=== PATIENT | female | born 1930 | race Asian ===

== ENCOUNTER 2016-08-12 17:33 | Emergency (ER) | payer OTHER ==
[~2016-08-12 17:33] MED LIST: MULT-506 PO; PRED20TA PO; SENNTAB23 PO
[2016-08-12 17:36] VITALS: TEMP 36.8
[2016-08-12] MEDS ORDERED: HYDR12.56 PO (18:37)
[2016-08-12] MEDS ORDERED: FLV1 PO (18:37)
[2016-08-12] MEDS ORDERED: ULT50 PO (18:37)
[2016-08-12 19:09] LABS: BASO % 0.5 %; BASO ABS # 0.02 K/uL (0-0.2); COMPLETE YES; EOS % 3.5 %; HEMATOCRIT 30.5 % (37-47); IG% 0.2 %; LYMPH % 9.2 %; LYMPH ABS # 0.37 K/uL (1.2-3.4); MEAN CELL VOLUME 87.4 fL (80-100); MEAN CORPUSCULAR HEMOGLOBIN 28.4 pg (25-34); MEAN CORPUSCULAR HGB CONC 32.5 g/dl (32-36); MEAN PLATELET VOLUME 8.7 fL (7.4-10.4); MONO % 6.2 %; NEUT % 80.4 %; PLATELET COUNT 218 K/uL (130-400); RED BLOOD COUNT 3.49 M/uL (4.2-5.4); WHITE BLOOD COUNT 4.04 K/uL (4.8-10.8)
[2016-08-12 19:26] LABS: PROTHROMBIN TIME (PATIENT) 10.6 SECONDS (9.0-12.0)
[2016-08-12 19:32] LABS: ALT/SGPT 19 U/L (12-78); AST/SGOT 22 U/L (15-37); BLOOD UREA NITROGEN 16 mg/dl (7-18); BUN/CREATININE RATIO 20.4 (10-20); CALCIUM 9.4 mg/dl (8.5-10.1); CARBON DIOXIDE 28 mmol/L (21-32); CHLORIDE 102 mmol/L (98-107); CREATININE 0.79 mg/dl (0.60-1.20); GLUCOSE 102 mg/dl (70-99); MAGNESIUM 2.4 mg/dl (1.8-2.4); POTASSIUM 3.7 mmol/L (3.5-5.1); SODIUM 138 mmol/L (136-145)
[2016-08-12 19:35] LABS: ALB/GLOB RATIO 0.8 (0.9-2); ALKALINE PHOSPHATASE 75 U/L (45-117)
--- NOTE | 2016-08-12 19:46 | DIAGNOSTIC IMAGING REPORT ---
CT HEAD WITHOUT CONTRAST (CT) CLINICAL HISTORY: Multiple falls. Vomiting. HEAD TRAUMA COMPARISON STUDY: No previous studies for comparison. TECHNIQUE: Axial CT of the brain is performed from the vertex to the skull base. IV contrast was not administered for this examination. CT DOSE: 836.23 mGy.cm FINDINGS: There is no CT evidence of acute cortical infarction. There is no evidence of midline shift. There is no acute hemorrhage. No calvarial fractures are visualized. There are moderate white matter hypodensities likely on a small vessel basis. 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 There is no evidence of pathologic ventricular dilatation. There is no evidence of acute sinusitis There is a 17 mm mildly hyperdense left frontal extra-axial mass likely representing a meningioma. IMPRESSION: 1. 17 mm left frontal dural based extra-axial mass, likely are representing a meningioma 2. White matter hypodensities and old lacunar infarcts likely on a small vessel ischemic basis 3. No evidence of acute hemorrhage Electronically signed by: Ayan Dennis M.D. 08/12/2016 7:44 PM Dictated Date/Time: 08/12/2016 7:41 PM
--- NOTE | 2016-08-12 19:49 | DIAGNOSTIC IMAGING REPORT ---
CT LEFT HIP-LOWER EXTREMITY WITHOUT CT DOSE: CLINICAL HISTORY: Persistent left hip pain. TECHNIQUE: Helical images were acquired in the transverse plane. Multiplane are reformatted images were acquired. COMPARISON STUDY: None. FINDINGS: Degenerative changes are present within the left sacroiliac joint. No pathologic soft tissue masses are visualized. No fractures are visualized. No destructive lesions are evident. There are no dislocations. IMPRESSION: 1. Mild degenerative changes in the left sacroiliac joint 2. No acute fractures, subluxations, or destructive lesions are visualized. Electronically signed by: Ayan Denins M.D. 08/12/2016 7:47 PM Dictated Date/Time: 08/12/2016 7:45 PM
[2016-08-12 20:31] LABS: URINE APPEARANCE CLOUDY (CLEAR); URINE BILIRUBIN NEG (NEG); URINE COLOR YELLOW; URINE NITRITE NEG (NEG); URINE SPECIFIC GRAVITY 1.007 (1.000-1.030); UROBILINOGEN NEG (NEG); ZZUR CULT IF INDIC CLEAN CATCH NO
[2016-08-12 20:48] LABS: MANUAL MICROSCOPIC REQUIRED? NO; REVIEW REQ? NO
--- NOTE | 2016-08-12 21:06 | EMERGENCY ROOM VISIT NOTE ---
ED Visit Note First contact with patient: 17:47 I have personally seen and evaluated the patient with the PA. I agree with the diagnosis and management decisions and have been personally involved in the case. Please see Tara Glez PA-C's notes for further details of the history, physical and visit.
[2016-08-12] MEDS ORDERED: HYDR50CA2 PO (21:10)
--- NOTE | 2016-08-12 21:12 | EMERGENCY ROOM VISIT NOTE ---
History First contact with patient: 17:47 Chief Complaint: OTHER COMPLAINT Stated Complaint: GENERAL ITCHINESS, UTI POSSIBLE HIP FRACTURE History of Present Illness The patient is a 85 year old female who presents to the Emergency Room with multiple complaints. The patient speaks very little Georgian and history is mostly obtained from her granddaughter. The granddaughter states that they were sent here by the patient's professor of radiology for testing. The patient had one episode of vomiting today. The granddaughter states that the patient just finished treatment for a UTI. She has taken 2 weeks of Cipro. The patient has been complaining of left hip pain for the past 3 weeks. She had a minor fall 2 days ago in the granddaughter does not believe that she hit her head or sustained any other injuries. She also reports that the patient has had generalized itching for the past several days. She has been using lotion without relief. The patient has a history of autoimmune hemolytic anemia. She has no other complaints. She denies any urinary symptoms at this time. She denies any abdominal pain, back pain, chest pain or shortness of breath. Review of Systems A complete 10-point Review of Systems was discussed with the patient, with pertinent positives and negatives listed in the History of Present Illness. All remaining Review of Systems questions can be considered negative unless otherwise specified. Past Medical/Surgical History Medical Problems: (1) Hypertension Social History Smoking Status: Never Smoker Housing Status: lives with family Occupation Status: retired Current/Historical Medications Scheduled Folic Acid (Folic Acid), 1 MG PO DAILY Hydrochlorothiazide (Hctz), 12.5 MG PO QAM Scheduled PRN Hydroxyzine Pamoate (Vistaril), 1 TAB PO Q6H PRN for Itching Tramadol HCl (Tramadol HCl), 50 MG PO BID PRN for Pain Allergies Coded Allergies: No Known Allergies (Unverified , 08/12/16) Physical Exam Vital Signs Date Time Temp Pulse Resp B/P Pulse Ox O2 Delivery O2 Flow Rate FiO2 08/12/16 21:32 81 21 132/85 94 08/12/16 20:08 84 137/92 95 Room Air 08/12/16 17:36 36.8 94 18 140/90 95 Room Air Physical Exam VITALS: Vitals are noted on the nurse's note and reviewed by myself. Vital signs stable. GENERAL: This is an 85-year-old female, in no acute distress, nondiaphoretic, well-developed well-nourished. SKIN: Multiple excoriations on bilateral arms. HEENT: Normocephalic. PERRLA. EOMI. Nares patent. Mucous membranes moist. Neck is supple without nuchal rigidity. HEART: Regular rate and rhythm without murmurs gallops or rubs. LUNGS: Clear to auscultation bilaterally without wheezes, rales or rhonchi. ABDOMEN: Positive bowel sounds x 4. Soft, nontender, without masses or organomegaly. MUSCULOSKELETAL: Mild tenderness over the left hip. NEURO: Patient was alert and oriented to person place and time. Medical Decision & Procedures ER Provider Diagnostic Interpretation: CT HEAD WITHOUT CONTRAST (CT) IMPRESSION: 1. 17 mm left frontal dural based extra-axial mass, likely are representing a meningioma 2. White matter hypodensities and old lacunar infarcts likely on a small vessel ischemic basis 3. No evidence of acute hemorrhage CT LEFT HIP-LOWER EXTREMITY WITHOUT IMPRESSION: 1. Mild degenerative changes in the left sacroiliac joint 2. No acute fractures, subluxations, or destructive lesions are visualized. Laboratory Results 08/12/16 18:55 Red Blood Count 3.49, Mean Corpuscular Volume 87.4, Mean Corpuscular Hemoglobin 28.4, Mean Corpuscular Hemoglobin Concent 32.5, Mean Platelet Volume 8.7, Neutrophils (%) (Auto) 80.4, Lymphocytes (%) (Auto) 9.2, Monocytes (%) (Auto) 6.2, Eosinophils (%) (Auto) 3.5, Basophils (%) (Auto) 0.5, Neutrophils # (Auto) 3.25, Lymphocytes # (Auto) 0.37, Monocytes # (Auto) 0.25, Eosinophils # (Auto) 0.14, Basophils # (Auto) 0.02 08/12/16 18:55 Test 08/12/16 18:55 08/12/16 19:57 White Blood Count 4.04 K/uL (4.8-10.8) Red Blood Count 3.49 M/uL (4.2-5.4) Hemoglobin 9.9 g/dL (12.0-16.0) Hematocrit 30.5 % (37-47) Mean Corpuscular Volume 87.4 fL (80-100) Mean Corpuscular Hemoglobin 28.4 pg (25-34) Mean Corpuscular Hemoglobin Concent 32.5 g/dl (32-36) Platelet Count 218 K/uL (130-400) Mean Platelet Volume 8.7 fL (7.4-10.4) Neutrophils (%) (Auto) 80.4 % Lymphocytes (%) (Auto) 9.2 % Monocytes (%) (Auto) 6.2 % Eosinophils (%) (Auto) 3.5 % Basophils (%) (Auto) 0.5 % Neutrophils # (Auto) 3.25 K/uL (1.4-6.5) Lymphocytes # (Auto) 0.37 K/uL (1.2-3.4) Monocytes # (Auto) 0.25 K/uL (0.11-0.59) Eosinophils # (Auto) 0.14 K/uL (0-0.5) Basophils # (Auto) 0.02 K/uL (0-0.2) RDW Standard Deviation 48.9 fL (36.4-46.3) RDW Coefficient of Variation 15.2 % (11.5-14.5) Immature Granulocyte % (Auto) 0.2 % Immature Granulocyte # (Auto) 0.01 K/uL (0.00-0.02) Haptoglobin <15 MG/DL (43-212) Prothrombin Time 10.6 SECONDS (9.0-12.0) Prothromb Time International Ratio 1.0 (0.9-1.1) Activated Partial Thromboplast Time 25.7 SECONDS (21.0-31.0) Partial Thromboplastin Ratio 1.0 Anion Gap 8.0 mmol/L (3-11) Estimated GFR () 78.6 Estimated GFR (Non- 67.8 BUN/Creatinine Ratio 20.4 (10-20) Calcium Level 9.4 mg/dl (8.5-10.1) Magnesium Level 2.4 mg/dl (1.8-2.4) Total Bilirubin 1.0 mg/dl (0.2-1) Aspartate Amino Transf (AST/SGOT) 22 U/L (15-37) Alanine Aminotransferase (ALT/SGPT) 19 U/L (12-78) Alkaline Phosphatase 75 U/L (45-117) Total Protein 8.2 gm/dl (6.4-8.2) Albumin 3.6 gm/dl (3.4-5.0) Globulin 4.6 gm/dl (2.5-4.0) Albumin/Globulin Ratio 0.8 (0.9-2) Urine Color YELLOW Urine Appearance CLOUDY (CLEAR) Urine pH 8.0 (4.5-7.5) Urine Specific [place] 1.007 (1.000-1.030) Urine Protein NEG (NEG) Urine Glucose (UA) NEG (NEG) Urine Ketones NEG (NEG) Urine Occult Blood NEG (NEG) Urine Nitrite NEG (NEG) Urine Bilirubin NEG (NEG) Urine Urobilinogen NEG (NEG) Urine Leukocyte Esterase NEG (NEG) Urine WBC (Auto) 0 /hpf (0-5) Urine RBC (Auto) 0-4 /hpf (0-4) Urine Hyaline Casts (Auto) 1-5 /lpf (0-5) Urine Epithelial Cells (Auto) 5-10 /lpf (0-5) Urine Bacteria (Auto) NEG (NEG) Medical Decision Differential diagnosis includes hip fracture, hip contusion, anemia, metabolic abnormality, infection, among others. The patient was evaluated as above. Labs were drawn and IV access was obtained. Imaging studies were performed and read by radiology as above. The patient was reassessed multiple times during their stay in the emergency department and remained in stable condition. The patient is an 85-year-old female who presents today with multiple complaints. Labs revealed an anemia consistent with the patient's chronic anemia. There was no leukocytosis or concerning electrolyte abnormalities. LFTs and kidney functions were within normal limits. Urinalysis was not suggestive of infection. Haptoglobin was ordered at the request of the patient' s professor of radiology and was pending at the time of evaluation. Head CT and hip CT did not show any acute abnormalities. I am unsure of the cause of the patient' s pruritis. She will be treated with Benadryl and Vistaril. She will follow up closely with her primary care provider. She will return to the ER with any new/concerning symptoms. Based on the patient's presentation, lab results, and imaging studies, I feel the patient is stable for outpatient treatment. The patient was independently evaluated by Dr. Villalta, ED attending physician, who agreed with my assessment and treatment plan. Discharge instructions were reviewed with the patient. The patient verbalized understanding of my assessment and treatment plan and was discharged home in good condition. Impression Primary Impression: Left hip pain Additional Impression: Generalized pruritus Departure Information Dispostion Home / Self-Care Condition GOOD Prescriptions Hydroxyzine Pamoate (VISTARIL) 50 Mg Cap 1 TAB PO Q6H Y for Itching for 5 Days, #20 CAP Prov: Tara Glez PA-C 08/12/16 Referrals Michael Marino, D.OGibran (PCP) Patient Instructions My [facility] Additional Instructions Vistaril: Take 1 tablet every 6 hours as needed for itching. She may also take [id number] Benadryl for itching. You should apply a cream like Aquafor or Eucerin to the skin. Follow-up with Dr. Marino and Dr. Whitehead next week. Return to the emergency department with abdominal pain, headaches, fevers, increased vomiting or any other new/concerning symptoms. Problem Qualifiers
[2016-08-12 21:32] VITALS: BP 132/85; PULSE 81; O2SAT 94
[2016-09-05] MEDS ORDERED: FAMO20TA12 PO (11:29)
[2016-09-05] MEDS ORDERED: CALCTAB7 PO (11:29)
[2016-09-05] MEDS ORDERED: MRLP17X PO (11:29)
[2016-09-05] MEDS ORDERED: FLV1 PO (11:29)
== END 2016-08-12 21:33 | disposition home or self-care (01) ==
LOC: C.EDB 17:35 → C.EDC 21:33
DX: M25.552 Pain in left hip (principal); L29.9 Pruritus, unspecified; I10 Essential (primary) hypertension

== ENCOUNTER 2016-08-21 12:14 | Inpatient (IN) | payer OTHER ==
[~2016-08-21] VITALS: Ht 152.4 cm; Wt 43.9 kg
[~2016-08-21 12:14] MED LIST changes: +FLV1 PO; +HYDR12.56 PO; -MULT-506 PO; -PRED20TA PO; -SENNTAB23 PO; +ULT50 PO
--- NOTE | 2016-08-21 12:39 | EMERGENCY ROOM VISIT NOTE ---
History Report prepared by Marina: Tank Phipps Under the Supervision of: Dr. Joo Rubin M.D. 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 The patient does not speak any Romanian, only Yi. We are using a dairy frozen manager via phone to bridge the language barrier. Due to this, this history is limited. The patient lives at home with her family. They called EMS because they could not get the patient out of bed. She has chills and a cough. She denies any fevers or pain with urination. The patient's previous visit from 08/12/2016 was reviewed. Labs were compared to the lab results today. Source of History: EMS, other (dairy frozen manager) History Limited By: other (Translation Issues) Onset: PLASTIC FINISHER Position: other (global) Timing: other (persistent) Associated Symptoms: + chills, + cough, No fevers, No urinary symptoms Review of Systems Limited due to translation issues. Past Medical & Surgical Medical Problems: (1) Hemolytic anemia (2) HTN (hypertension) (3) Osteoporosis Surgical Problems: (1) History of esophagogastroduodenoscopy (EGD) Family History Not pertinent due to the patient's age. Social History Smoking Status: Never Smoker Housing Status: lives with family Occupation Status: retired Current/Historical Medications Scheduled Hydrochlorothiazide (Hctz), 12.5 MG PO QAM Scheduled PRN Hydroxyzine Pamoate (Vistaril), 50 MG PO Q6H PRN for Itching Tramadol HCl (Tramadol HCl), 50 MG PO BID PRN for Pain Allergies Coded Allergies: No Known Allergies (Unverified , 08/12/16) Physical Exam Vital Signs Date Time Temp Pulse Resp B/P Pulse Ox O2 Delivery O2 Flow Rate FiO2 08/21/16 15:56 100 20 134/78 92 Nasal Cannula 3.0 08/21/16 14:38 107 18 137/90 97 Nasal Cannula 2.0 08/21/16 13:51 104 25 148/93 96 Nasal Cannula 2.0 08/21/16 12:45 37.6 106 20 150/96 89 Room Air 08/21/16 12:41 106 Physical Exam GENERAL: Patient awake, alert. It is difficult to discern if the patient is oriented due to the language barrier. Patient follows commands. Patient does not appear toxic. Patient is adequately hydrated and well-nourished. SKIN: No erythema, pallor, cyanosis or rash HEENT: Normal head, pupils equal, reactive to light and accommodation. Neck: Without adenopathy, no neck vein distention. Supple, nontender. LUNGS: Clear to auscultation. No wheezes, no rales, no rhonchi. Occasional nonproductive cough. HEART: No murmurs. No gallops. No rubs ABDOMEN: No masses, no rebound, no hepatomegaly or splenomegaly. EXTREMITIES: No signs of trauma. No pedal or pretibial edema. No calf or thigh tenderness. NEUROLOGIC: Cranial nerves II-XII within normal limits. No gross motor sensory function deficits. Medical Decision & Procedures ER Provider Diagnostic Interpretation: X ray results are stated below per my interpretation and the radiologist's interpretation. CHEST ONE VIEW PORTABLE HISTORY: cough COMPARISON: Chest 03/04/2014. FINDINGS: No pneumothorax. No pleural effusions. The heart is normal in size. There is a tortuous thoracic aorta. Old, healed left-sided rib fractures. Mild diffuse interstitial thickening. No new focal lung consolidations. No evidence for pulmonary edema. Right apical nodular density is likely due to the overlapping first rib. IMPRESSION: Mild diffuse interstitial thickening which appears to be chronic. No new focal lung consolidations to suggest pneumonia. Electronically signed by: Denis Arredondo M.D. 08/21/2016 12:54 PM Dictated Date/Time: 08/21/2016 12:[address]AST CT DOSE: 537.48 mGy.cm HISTORY: Change in mental status hallucinations x 1 week TECHNIQUE: Multiaxial CT images of the head were performed without the use of intravenous contrast. Comparison: 08/12/2016 Findings: Moderate mucosal thickening of the maxillary and ethmoid and inferior frontal sinuses. 1.7 cm extra-axial partially calcified meningioma left frontal lobe. This is unchanged from the prior exam. Age-related atrophy. Chronic small vessel change. No acute intracranial hemorrhage. Impression: 1. Interval development of mild mucosal thickening of the sinuses. Unchanging left frontal meningioma. Atrophy and chronic small vessel change unaltered from the prior exam. Electronically signed by: Jignesh Lopez M.D. 08/21/2016 5:11 PM Dictated Date/Time: 08/21/2016 5:08 PM Laboratory Results 08/21/16 13:13 Red Blood Count 3.32, Mean Corpuscular Volume 88.3, Mean Corpuscular Hemoglobin 28.9, Mean Corpuscular Hemoglobin Concent 32.8, Mean Platelet Volume 9.0, Neutrophils (%) (Auto) 88.8, Lymphocytes (%) (Auto) 4.1, Monocytes (%) (Auto) 6.9, Eosinophils (%) (Auto) 0.0, Basophils (%) (Auto) 0.1, Neutrophils # (Auto) 7.99, Lymphocytes # (Auto) 0.37, Monocytes # (Auto) 0.62, Eosinophils # (Auto) 0.00, Basophils # (Auto) 0.01 08/21/16 13:13 Test 08/21/16 00:00 08/21/16 13:10 08/21/16 13:13 Urine Color DK YELLOW Urine Appearance CLEAR (CLEAR) Urine pH 6.0 (4.5-7.5) Urine Specific [place] 1.019 (1.000-1.030) Urine Protein 1+ (NEG) Urine Glucose (UA) NEG (NEG) Urine Ketones 3+ (NEG) Urine Occult Blood NEG (NEG) Urine Nitrite NEG (NEG) Urine Bilirubin NEG (NEG) Urine Urobilinogen NEG (NEG) Urine Leukocyte Esterase NEG (NEG) Urine WBC (Auto) 1-5 /hpf (0-5) Urine RBC (Auto) 5-10 /hpf (0-4) Urine Hyaline Casts (Auto) 5-10 /lpf (0-5) Urine Epithelial Cells (Auto) 10-20 /lpf (0-5) Urine Bacteria (Auto) NEG (NEG) White Blood Count 9.00 K/uL (4.8-10.8) Red Blood Count 3.32 M/uL (4.2-5.4) Hemoglobin 9.6 g/dL (12.0-16.0) Hematocrit 29.3 % (37-47) Mean Corpuscular Volume 88.3 fL (80-100) Mean Corpuscular Hemoglobin 28.9 pg (25-34) Mean Corpuscular Hemoglobin Concent 32.8 g/dl (32-36) Platelet Count 258 K/uL (130-400) Mean Platelet Volume 9.0 fL (7.4-10.4) Neutrophils (%) (Auto) 88.8 % Lymphocytes (%) (Auto) 4.1 % Monocytes (%) (Auto) 6.9 % Eosinophils (%) (Auto) 0.0 % Basophils (%) (Auto) 0.1 % Neutrophils # (Auto) 7.99 K/uL (1.4-6.5) Lymphocytes # (Auto) 0.37 K/uL (1.2-3.4) Monocytes # (Auto) 0.62 K/uL (0.11-0.59) Eosinophils # (Auto) 0.00 K/uL (0-0.5) Basophils # (Auto) 0.01 K/uL (0-0.2) RDW Standard Deviation 48.2 fL (36.4-46.3) RDW Coefficient of Variation 14.8 % (11.5-14.5) Immature Granulocyte % (Auto) 0.1 % Immature Granulocyte # (Auto) 0.01 K/uL (0.00-0.02) Prothrombin Time 11.1 SECONDS (9.0-12.0) Prothromb Time International Ratio 1.0 (0.9-1.1) Activated Partial Thromboplast Time 31.0 SECONDS (21.0-31.0) Partial Thromboplastin Ratio 1.2 Anion Gap 14.0 mmol/L (3-11) Estimated GFR () 76.2 Estimated GFR (Non- 65.8 BUN/Creatinine Ratio 23.1 (10-20) Lactic Acid Level 1.9 mmol/L (0.4-2.0) Calcium Level 8.6 mg/dl (8.5-10.1) Total Bilirubin 2.4 mg/dl (0.2-1) Aspartate Amino Transf (AST/SGOT) 41 U/L (15-37) Alanine Aminotransferase (ALT/SGPT) 25 U/L (12-78) Alkaline Phosphatase 86 U/L (45-117) Troponin I 0.022 ng/ml (0-0.045) Total Protein 8.4 gm/dl (6.4-8.2) Albumin 3.3 gm/dl (3.4-5.0) Globulin 5.1 gm/dl (2.5-4.0) Albumin/Globulin Ratio 0.6 (0.9-2) Thyroid Stimulating Hormone (TSH) 0.185 uIu/ml (0.300-4.500) Laboratory results as stated above per my review. Medications Administered Medications (Trade) Dose Ordered Sig/[place] Route Start Time Stop Time Status Last Admin Dose Admin Sodium Chloride (Nss 1000ml) 1,000 ml @ 1,000 mls/hr Q1H ONCE IV 08/21/16 14:00 08/21/16 14:59 DC 08/21/16 14:35 1,000 MLS/HR Acetaminophen (Tylenol Tab) 650 mg NOW STAT PO 08/21/16 14:00 08/21/16 14:01 DC 08/21/16 14:38 650 MG ECG Indication: altered mental status Rate (beats per minute): 111 Rhythm: sinus tachycardia Findings: no acute ischemic change, no ectopy ED Course 1222: Past medical records reviewed. The patient was evaluated in room C4. A complete history and physical examination was performed. 1400: Acetaminophen 650 mg PO, Sodium Chloride 1000 ml @ 1000 mls/hr IV 1550: I spoke with the patient's granddaughter on the phone at this time. She is much more fluent in Romanian. I obtained a more detailed story about the patient. More history reveals that the patient has been complaining about generalized pain everywhere for many weeks. She is unable to eat or drink and has not been getting out of bed. She sees Dr. Marino. They are unable to take care of her at home. 1604: Upon reevaluation, the patient is resting. I discussed today's findings with her. She verbalized agreement of the treatment plan. I spoke with Dr. Burger of the [facility] to evaluate the patient for further management. Medical Decision Nurses notes reviewed. Medical history sheet reviewed. Differential diagnosis includes but is not limited to: Sepsis, pneumonia, viral infection, degenerative joint disease, and metabolic disorder. Further history was obtained from the patient's daughter and granddaughter. The patient apparently has been unable to get out of bed. She is not eating or drinking. The family feels that they are unable to take care of her at home. The patient has had hallucinations beginning 1 week ago. Multiple labs, EKG and imaging were obtained. The patient does not appear to be septic. I do not see a pneumonia. Electrolytes are felt to be grossly within normal range. The patient is anemic. She is slightly dehydrated. I discussed care with the daughter, granddaughter and hospitalist. The patient was given IV fluids here in the ED. Consults Time Called: 1600 Consulting Physician: Dr. Tao Berg Hospitalist Returned Call: 1604 She will be evaluating the patient for further management. Impression Primary Impression: Altered mental status Additional Impressions: Dehydration Hallucinations Scribe Attestation The scribe's documentation has been prepared under my direction and personally reviewed by me in its entirety. I confirm that the note above accurately reflects all work, treatment, procedures, and medical decision making performed by me. Departure Information Dispostion Being Evaluated By Hospitalist Referrals Michael Marino, D.O. (PCP) Patient Instructions [facility] Problem Qualifiers
--- NOTE | 2016-08-21 12:55 | DIAGNOSTIC IMAGING REPORT ---
CHEST ONE VIEW PORTABLE HISTORY: cough COMPARISON: Chest 03/04/2014. FINDINGS: No pneumothorax. No pleural effusions. The heart is normal in size. There is a tortuous thoracic aorta. Old, healed left-sided rib fractures. Mild diffuse interstitial thickening. No new focal lung consolidations. No evidence for pulmonary edema. Right apical nodular density is likely due to the overlapping first rib. IMPRESSION: Mild diffuse interstitial thickening which appears to be chronic. No new focal lung consolidations to suggest pneumonia. Electronically signed by: Denis Arredondo M.D. 08/21/2016 12:54 PM Dictated Date/Time: 08/21/2016 12:52 PM
[2016-08-21 13:27] LABS: HEMATOCRIT 29.3 % (37-47); MEAN CELL VOLUME 88.3 fL (80-100); MEAN CORPUSCULAR HEMOGLOBIN 28.9 pg (25-34); MEAN CORPUSCULAR HGB CONC 32.8 g/dl (32-36); PLATELET COUNT 258 K/uL (130-400); RED BLOOD COUNT 3.32 M/uL (4.2-5.4)
[2016-08-21 13:31] LABS: URINE APPEARANCE CLEAR (CLEAR); URINE BILIRUBIN NEG (NEG); URINE COLOR DK YELLOW; URINE NITRITE NEG (NEG); URINE SPECIFIC GRAVITY 1.019 (1.000-1.030); UROBILINOGEN NEG (NEG); ZZURINE CULT IF INDIC CATH NO
[2016-08-21 13:38] LABS: PARTIAL THROMBOPLASTIN RATIO 1.2; PROTHROMBIN TIME (PATIENT) 11.1 SECONDS (9.0-12.0)
[2016-08-21 13:41] LABS: MANUAL MICROSCOPIC REQUIRED? NO; REVIEW REQ? NO
[2016-08-21 13:47] LABS: ALT/SGPT 25 U/L (12-78); BLOOD UREA NITROGEN 19 mg/dl (7-18); BUN/CREATININE RATIO 23.1 (10-20); CALCIUM 8.6 mg/dl (8.5-10.1); CARBON DIOXIDE 24 mmol/L (21-32); CHLORIDE 102 mmol/L (98-107); CREATININE 0.81 mg/dl (0.60-1.20); GLUCOSE 103 mg/dl (70-99); POTASSIUM 3.5 mmol/L (3.5-5.1); SODIUM 140 mmol/L (136-145)
[2016-08-21 13:50] LABS: BASO % 0.1 %; BASO ABS # 0.01 K/uL (0-0.2); COMPLETE YES; IG% 0.1 %; LYMPH % 4.1 %; LYMPH ABS # 0.37 K/uL (1.2-3.4); MONO % 6.9 %; NEUT % 88.8 %
[2016-08-21 13:57] LABS: ALB/GLOB RATIO 0.6 (0.9-2); ALKALINE PHOSPHATASE 86 U/L (45-117); AST/SGOT 41 U/L (15-37); THYROID STIMULATING HORMONE 0.185 uIu/ml (0.300-4.500)
[2016-08-21] MEDS ORDERED: SODIUM CHLORIDE 0.9% 1000ML 1,000 ML IV ONE (14:00)
[2016-08-21] MEDS ORDERED: ACETAMINOPHEN 325 MG TAB PO STA (14:00)
[2016-08-21] MEDS ORDERED: HYDR50CA2 PO (14:49)
--- NOTE | 2016-08-21 16:44 | History and Physical ---
History & Physical Date & Time of Service: Aug 21, 2016 at 16:36 Chief Complaint: Generalized Pain Primary Care Physician: Michael Marino D.O. History of Present Illness Source: clinic records, hospital records Patient seen and examined. 85 year old female with PMhx of Hemolytic Anemia, HTN , and osteoporosis. Presents to the ED complaining of generalized pain. History is very unclear. Patient speaks Amharic only. [employer] service was called multiple times and could not understand the patient. Family also speaks little Slovak but per nursing staff family stated that patient is bed bound and always has some pain. Today she complained of increased generalized pain as well as cough and SOB. Additional history could not be obtained. In the ED patient is hypoxic on RA. It does not appear she wears oxygen at home. She was mildly anemia. She appeared slightly dehydration. TSH was low. CXR Did not show any acute processes. She received Tylenol and IVFs. She appears to be in NAD. Past Medical/Surgical History Medical Problems: (1) Hemolytic anemia Status: Chronic (2) HTN (hypertension) Status: Chronic (3) Osteoporosis Status: Chronic Surgical Problems: (1) History of esophagogastroduodenoscopy (EGD) Status: Chronic Family History Patient reports no known family medical history. Social History Smoking Status: Unknown if Ever Smoked Marital Status: Housing status: lives with family Occupational Status: retired Allergies Coded Allergies: No Known Allergies (Unverified , 08/12/16) Home Medications Scheduled Hydrochlorothiazide (Hctz), 12.5 MG PO QAM Scheduled PRN Hydroxyzine Pamoate (Vistaril), 50 MG PO Q6H PRN for Itching Tramadol HCl (Tramadol HCl), 50 MG PO BID PRN for Pain Review of Systems Unable to assess at this time d/t language barrier and technology malfunctions. Physical Exam Vital Signs Date Time Temp Pulse Resp B/P Pulse Ox O2 Delivery O2 Flow Rate FiO2 08/21/16 15:56 100 20 134/78 92 Nasal Cannula 3.0 08/21/16 14:38 107 18 137/90 97 Nasal Cannula 2.0 08/21/16 13:51 104 25 148/93 96 Nasal Cannula 2.0 08/21/16 12:45 37.6 106 20 150/96 89 Room Air 08/21/16 12:41 106 General Appearance: + pertinent finding (WD/WN 85 year old female lying in bed in NAD ) Head: normocephalic, atraumatic Eyes: PERRL, sclerae normal ENT: pharynx normal Neck: supple, no JVD, trachea midline Respiratory/Chest: chest non-tender, lungs clear, normal breath sounds, no respiratory distress, no accessory muscle use Cardiovascular: regular rate, rhythm, no edema, no gallop, no JVD, no murmur, normal peripheral pulses Abdomen/GI: normal bowel sounds, non tender, soft Extremities/Musculoskelatal: no calf tenderness, normal capillary refill, no pedal edema Neurologic/Psych: + pertinent finding (Sleeping but responses to verbal stimuli , unable to assess orientation d/t language barrier, unable to follow comands, appears to move all extremities appropriately ) Skin: normal color, warm/dry, no rash Lymphatic: no adenopathy Diagnostics Laboratory Results Results Past 24 Hours Test 08/21/16 13:10 08/21/16 13:13 Range/Units Urine Color DK YELLOW Urine Appearance CLEAR CLEAR Urine pH 6.0 4.5-7.5 Urine Specific Chunky 1.019 1.000-1.030 Urine Protein 1+ NEG Urine Glucose (UA) NEG NEG Urine Ketones 3+ NEG Urine Occult Blood NEG NEG Urine Nitrite NEG NEG Urine Bilirubin NEG NEG Urine Urobilinogen NEG NEG Urine Leukocyte Esterase NEG NEG Urine WBC (Auto) 1-5 0-5 /hpf Urine RBC (Auto) 5-10 0-4 /hpf Urine Hyaline Casts (Auto) 5-10 0-5 /lpf Urine Epithelial Cells (Auto) 10-20 0-5 /lpf Urine Bacteria (Auto) NEG NEG White Blood Count 9.00 4.8-10.8 K/uL Red Blood Count 3.32 4.2-5.4 M/uL Hemoglobin 9.6 12.0-16.0 g/dL Hematocrit 29.3 37-47 % Mean Corpuscular Volume 88.3 80-100 fL Mean Corpuscular Hemoglobin 28.9 25-34 pg Mean Corpuscular Hemoglobin Concent 32.8 32-36 g/dl Platelet Count 258 130-400 K/uL Mean Platelet Volume 9.0 7.4-10.4 fL Neutrophils (%) (Auto) 88.8 % Lymphocytes (%) (Auto) 4.1 % Monocytes (%) (Auto) 6.9 % Eosinophils (%) (Auto) 0.0 % Basophils (%) (Auto) 0.1 % Neutrophils # (Auto) 7.99 1.4-6.5 K/uL Lymphocytes # (Auto) 0.37 1.2-3.4 K/uL Monocytes # (Auto) 0.62 0.11-0.59 K/uL Eosinophils # (Auto) 0.00 0-0.5 K/uL Basophils # (Auto) 0.01 0-0.2 K/uL RDW Standard Deviation 48.2 36.4-46.3 fL RDW Coefficient of Variation 14.8 11.5-14.5 % Immature Granulocyte % (Auto) 0.1 % Immature Granulocyte # (Auto) 0.01 0.00-0.02 K/uL Prothrombin Time 11.1 9.0-12.0 SECONDS Prothromb Time International Ratio 1.0 0.9-1.1 Activated Partial Thromboplast Time 31.0 21.0-31.0 SECONDS Partial Thromboplastin Ratio 1.2 Sodium Level 140 136-145 mmol/L Potassium Level 3.5 3.5-5.1 mmol/L Chloride Level 102 98-107 mmol/L Carbon Dioxide Level 24 21-32 mmol/L Anion Gap 14.0 3-11 mmol/L Blood Urea Nitrogen 19 7-18 mg/dl Creatinine 0.81 0.60-1.20 mg/dl Estimated GFR () 76.2 Estimated GFR (Non- 65.8 BUN/Creatinine Ratio 23.1 10-20 Random Glucose 103 70-99 mg/dl Lactic Acid Level 1.9 0.4-2.0 mmol/L Calcium Level 8.6 8.5-10.1 mg/dl Total Bilirubin 2.4 0.2-1 mg/dl Aspartate Amino Transf (AST/SGOT) 41 15-37 U/L Alanine Aminotransferase (ALT/SGPT) 25 12-78 U/L Alkaline Phosphatase 86 45-117 U/L Troponin I 0.022 0-0.045 ng/ml Total Protein 8.4 6.4-8.2 gm/dl Albumin 3.3 3.4-5.0 gm/dl Globulin 5.1 2.5-4.0 gm/dl Albumin/Globulin Ratio 0.6 0.9-2 Thyroid Stimulating Hormone (TSH) 0.185 0.300-4.500 uIu/ml Microbiology Results 08/21/16 Blood Culture, Received Pending 08/21/16 Blood Culture, Received Pending Diagnostic Radiology CXR Per radiologist read: IMPRESSION: Mild diffuse interstitial thickening which appears to be chronic. No new focal lung consolidations to suggest pneumonia. EKG Sinus Tachycardia 111 BPM QTc 500 Impression Assessment and Plan Patient seen in collaboration with Dr. Burger. Please see her addendum for assessment and plan. At time of my examination the translating phone line was not working. Thank you ATTENDING NOTE : pt seen and examined, in agreement with above H&P by Kaley Naranjo PA-C 85 F from [place] -does not speak Slovak -brought in to ED by family members -as pt has not been her self for past few weeks, not been eating or drinking , confused hallucinating unable to obtain any information form Patient due to Language Barrier / called Pt's Grand daughter Ana Pineda phone # [phone] able to obtain brief history Pt lived with her Daughter in [email or web address] , at baseline -she has occasional forgetfulness able to walk with a walker for the past 2 weeks , pt has not been her self, was tired and fatigued stayed in bed , sleeping mostly refused to eat and drink no report of fever pt mentioned occasionally of feeling cold no SOB or cough noted by family no diarrhea pt had UTI recently -Urine culture on 07/29/16 -campos sensitive E .Coli completed 10 days course of Ciprofloxacin has chronic back pain , Fx of lumber spine L1-L5 started on Tramadol by Dr Oscar Marino 2 days back -pt fell form her bed -pt been complaining of pain everywhere -will not allow any one to touch her has been hallucinating in the ED pt found to be Hypoxic -requiring 2 L 02 via nasal Canula ( not on 02 at home ) P/E : limited -due to language barrier pt unable to co-operate Gen: Elderly female , no apparent distress HEENT; sclera non icteric HT: regular S1/S2 lungs: CTA abdomen : soft Ext : no rash or deformity Neuro: unable to assess , no focal deficit noted , moving all limbs A/P : SOB /PNEUMONIA : possible due to pneumonia , evident in CT chest no evidence of sepsis normal white count , no cough , no fever empiric Abx with Rocephin /Zithromax blood and sputum culture ordered SINUSITIS: evident in CT head cont abx as above possible transition to oral agent in next 24-48 hrs as clinically improves ELEVATED D DIMER ; due to above -infection CT chest negative for PE lower ext doppler negative for DVT CONFUSION /METABOLIC ENCEPHALOPATHY due to infection ,dehydration -medications ( tramadol /Vistaril )-known to cause hallucination in elderly -CT head negative for CVA cont supportive care with IV hydration, treatment for infection -caution for sun downing -high risk -dementia , language barrier updated Grand Daughter to have Family present at bedside as much as possible for support and interpretation DEHYDRATION : due to infection -recent UTI , pneumonia IV hydration monitor lytes RECENT UTI: completed 10 days course of Ciprofloxacin UA negative repeat culture ordered BACK PAIN /FALL ordered for Xray of Lumber spine pain control -avoid Narcotics PT/OT fall precaution HX OF HEMOLYTIC ANEMIA : follows with Heme onc Dr Puente Hb at baseline avoid antiplatelets /anticoagulants Peripheral blood smear for pathology review ordered in AM LOW TSH : possible sick euthyroid syndrome -due to illness normal free T4 low T 3 repeat TSH in 3-4 weeks as pt improves clinically FULL CODE DVT PROPHYLAXIS : moderate to high risk has been bed bound for weeks lower ext Doppler negative for DVT scd and teds no anticoagulation due to hx of Hemolytic anemia DISPOSITION : Family requests -placement in skilled nursing -as unable to taker care at Home request For [facility] -there is another Amharic speaking resident present currently where pt will feel comfortable PT/OT eval requested Social service consulted for discharge planning Contact : Grand Daughter Ana Pineda VTE Prophylaxis VTE Risk Assessment Done? Y/N: Yes Risk Level: Moderate Given or contraindicated: T.E.D. Stockings, SCD's
--- NOTE | 2016-08-21 17:12 | DIAGNOSTIC IMAGING REPORT ---
HEAD CT NONCONTRAST CT DOSE: 537.48 mGy.cm HISTORY: Change in mental status hallucinations x 1 week TECHNIQUE: Multiaxial CT images of the head were performed without the use of intravenous contrast. Comparison: 08/12/2016 Findings: Moderate mucosal thickening of the maxillary and ethmoid and inferior frontal sinuses. 1.7 cm extra-axial partially calcified meningioma left frontal lobe. This is unchanged from the prior exam. Age-related atrophy. Chronic small vessel change. No acute intracranial hemorrhage. Impression: 1. Interval development of mild mucosal thickening of the sinuses. Unchanging left frontal meningioma. Atrophy and chronic small vessel change unaltered from the prior exam. Electronically signed by: Jignesh Lopez M.D. 08/21/2016 5:11 PM Dictated Date/Time: 08/21/2016 5:08 PM
[2016-08-21 18:40] VITALS: BP 125/89; PULSE 91; TEMP 36.7; O2SAT 92
[2016-08-21] MEDS ORDERED: MAGNESIUM HYDROXIDE SUSP 30 ML UDC PO PRN (18:45)
[2016-08-21] MEDS ORDERED: ONDANSETRON INJ 2 MG/ML 2 ML VIAL IV PRN (18:45)
[2016-08-21] MEDS ORDERED: AMOXICILLIN/CLAVULANATE TAB 875 MG TAB PO SCH (18:45)
[2016-08-21] MEDS ORDERED: POLYETHYLENE (MIRALAX) 17 GM PACK PO PRN (19:00)
[2016-08-21] MEDS ORDERED: OPTIRAY 320 IV PRN (19:30)
[2016-08-21 20:46] LABS: INFLUENZA A PCR Neg for Influ A (NEG); INFLUENZA B PCR Neg for Influ B (NEG)
[2016-08-21] MEDS ORDERED: HEPARIN SOD 5000 UNIT/0.5 ML CARP SQ SCH (21:00)
--- NOTE | 2016-08-21 21:06 | DIAGNOSTIC IMAGING REPORT ---
CHEST CTA for PULMONARY ARTERIES CT DOSE: 277.73 mGy.cm HISTORY: Chest pain. Dyspnea. TECHNIQUE: Multiaxial CT images of the chest were performed following the intravenous administration of contrast to evaluate the pulmonary arteries. Maximal intensity projection images were also obtained. COMPARISON STUDY: 03/06/2014 FINDINGS: There is a normal caliber thoracic aorta with no evidence for dissection. There is no evidence for pulmonary embolus. No pleural effusions. No pneumothorax. The liver and spleen are unremarkable. No mediastinal or hilar lymphadenopathy. The central airways are patent. The lungs demonstrate somewhat progressive bibasilar infiltrative change compared to the prior exam. Degenerative change thoracic spine similar compared to the prior study. IMPRESSION: 1. No evidence for pulmonary embolus. 2. Small bibasilar parenchymal infiltrates superimposed upon chronic interstitial change. Electronically signed by: Jignesh Lopez M.D. 08/21/2016 9:04 PM Dictated Date/Time: 08/21/2016 9:00 PM
--- NOTE | 2016-08-21 21:11 | DIAGNOSTIC IMAGING REPORT ---
BILATERAL LOWER EXTREMITY VENOUS DOPPLER HISTORY: Dyspnea pain. Edema. COMPARISON STUDY: None. FINDINGS: There is normal compressibility, flow, and augmentation within the bilateral lower extremity deep venous systems. IMPRESSION: No DVT within the right or left lower extremity. Electronically signed by: Jignesh Lopez M.D. 08/21/2016 9:09 PM Dictated Date/Time: 08/21/2016 9:09 PM
[2016-08-21] MEDS ORDERED: HYDROXYZINE PAMOATE 50 MG PO PRN (21:30)
[2016-08-21] MEDS ORDERED: TRAMADOL HCL 50 MG TAB PO PRN (21:30)
[2016-08-21] MEDS: CEFTRIAXONE SOD INJ 1 GM in DEXTROSE 5% ADD-VANTAGE 50ML 50 ML IV SCH (22:26)
[2016-08-21] MEDS: SODIUM CHLORIDE 0.9% 1000ML 1,000 ML IV SCH (22:27)
[2016-08-21 23:43] VITALS: BP 126/85; PULSE 101; TEMP 36.7; O2SAT 97
[2016-08-22] VITALS (7 sets, daily range): BP systolic 97–126; BP diastolic 61–85; PULSE 78–103; TEMP 36.5–38.1; O2SAT 91–97; Ht 152.4 cm; Wt 43.9 kg
[2016-08-22 06:04] LABS: HEMATOCRIT 22.9 % (37-47); MEAN CELL VOLUME 87.7 fL (80-100); MEAN CORPUSCULAR HGB CONC 31.9 g/dl (32-36); MEAN PLATELET VOLUME 8.7 fL (7.4-10.4); PLATELET COUNT 211 K/uL (130-400); RED BLOOD COUNT 2.61 M/uL (4.2-5.4); WHITE BLOOD COUNT 7.67 K/uL (4.8-10.8)
[2016-08-22 06:31] LABS: CALCIUM 8.3 mg/dl (8.5-10.1); CREATININE 0.64 mg/dl (0.60-1.20); MAGNESIUM 2.2 mg/dl (1.8-2.4); POTASSIUM 3.1 mmol/L (3.5-5.1)
[2016-08-22] MEDS ORDERED: PNEUMOCOCCAL ADMINISTRATION CHARGE ONE (08:00)
[2016-08-22] MEDS ORDERED: INFLUENZA ADMINISTRATION CHARGE ONE (08:00)
[2016-08-22] MEDS ORDERED: INFLUENZA VIRUS QUAD VACCINE 0.5 ML SYR IM. ONE (08:00)
[2016-08-22] MEDS ORDERED: PNEUMOCOCCAL POLYSACCHARIDES 25 MCG/0.5 ML VIAL/SYR IM. ONE (08:00)
[2016-08-22] MEDS: SODIUM CHLORIDE 0.9% 1000ML 1,000 ML IV SCH (09:17)
[2016-08-22] MEDS: AZITHROMYCIN 250 MG TAB PO SCH (09:18)
--- NOTE | 2016-08-22 10:06 | DIAGNOSTIC IMAGING REPORT ---
LUMBAR SPINE 2 OR 3 VIEWS CLINICAL HISTORY: back pain COMPARISON STUDY: CT abdomen and pelvis dated 03/06/2014 FINDINGS: Old compression deformity L1. Moderate degenerative intervertebral this changes throughout the remainder the lumbar region. Mild scoliosis. No new or interval process. IMPRESSION: Old compression deformity L1. Moderate degenerative disc changes throughout the entire lumbar region Electronically signed by: Jignesh Lopez M.D. 08/22/2016 10:05 AM Dictated Date/Time: 08/22/2016 10:03 AM
[2016-08-22] MEDS: ALUMINUM/MAGNESIUM/SIMETH (MAALOX MAX) 30 ML UDC PO PRN (13:05)
[2016-08-22] MEDS: ACETAMINOPHEN 325 MG TAB PO PRN (16:38)
--- NOTE | 2016-08-22 20:43 | Progress Note ---
Medicine Progress Note Date & Time of Visit: Aug 22, 2016 at 20:22. Subjective Patient seen and examined. Patient is Japanese speaking only and no family present. Objective Last 8 Hrs Date Time Temp Pulse Resp B/P Pulse Ox O2 Delivery O2 Flow Rate FiO2 08/22/16 19:51 36.5 78 20 101/62 97 Nasal Cannula 3.0 08/22/16 17:39 37.8 08/22/16 15:49 Nasal Cannula 3.0 08/22/16 15:20 38.1 97 18 99/66 95 Nasal Cannula 3.0 Physical Exam: General-sleeping but arousable Eyes-unable to fully examine; no scleral icterus Neck-no stridor; trachea midline Lungs-rhonchi throughout Heart-RRR Abdomen-soft; NTND; nBS Extremities-no c/c/e; no deformity Neuro-unable to examine Laboratory Results: Last 24 Hours Test 08/22/16 05:40 08/22/16 09:15 White Blood Count 7.67 K/uL Red Blood Count 2.61 M/uL Hemoglobin 7.3 g/dL Hematocrit 22.9 % Mean Corpuscular Volume 87.7 fL Mean Corpuscular Hemoglobin 28.0 pg Mean Corpuscular Hemoglobin Concent 31.9 g/dl RDW Standard Deviation 47.6 fL RDW Coefficient of Variation 14.8 % Platelet Count 211 K/uL Mean Platelet Volume 8.7 fL Nucleated RBC Absolute Count (auto) 0.00 K/uL Nucleated Red Blood Cells % 0.0 % Peripheral Blood Smear Path Consult Sodium Level 144 mmol/L Potassium Level 3.1 mmol/L Chloride Level 108 mmol/L Carbon Dioxide Level 24 mmol/L Anion Gap 12.0 mmol/L Blood Urea Nitrogen 18 mg/dl Creatinine 0.64 mg/dl Est Creatinine Clear Calc Drug Dose 45.3 ml/min Estimated GFR () 93.6 Estimated GFR (Non- 80.8 BUN/Creatinine Ratio 28.0 Random Glucose 80 mg/dl Calcium Level 8.3 mg/dl Magnesium Level 2.2 mg/dl Total Bilirubin 1.6 mg/dl Direct Bilirubin 0.6 mg/dl Aspartate Amino Transf (AST/SGOT) 27 U/L Alanine Aminotransferase (ALT/SGPT) 17 U/L Alkaline Phosphatase 64 U/L Total Protein 6.6 gm/dl Albumin 2.5 gm/dl Absolute Reticulocyte Count 0.06 10^6/uL Percent Reticulocyte Count 2.2 % Lactate Dehydrogenase 291 U/L Date/Time Source Procedure Growth Status 08/21/16 23:45 Urine , Clean Catch Urine Culture Pending Received Assessment & Plan POSSIBLE PNEUMONIA - CT chest with bibasilar parenchymal infiltrates - continue Rocephin (start 08/21/16) / Zithromax (start 08/22/16) - fever 08/22/16, but within 24 hours of starting antibiotics - blood and sputum culture pending - continue supplemental oxygen - nebulizers ELEVATED D DIMER - likely due to infection - CT chest negative for PE - lower ext doppler negative for DVT METABOLIC ENCEPHALOPATHY - likely due to infection, dehydration, medications (on tramadol, hydroxyzine as outpatient) - CT head negative for acute process BACK PAIN /FALL - xray of Lumber spine with old L1 compression deformity and moderate degenerative changes - lidocaine patch - Tylenol PRN - PT/OT evaluations recommend home vs SNF (patient's family unable to care for patient) HEMOLYTIC ANEMIA - follows with Heme onc Dr Whitehead as outpatient - had planned to start outpatient weekly Rituxan - Hgb downtrended, possibly somewhat dilutional with IVF's - haptoglobin, direct Ignacia pending - absolute retic low-normal - LDH mildly elevated LOW TSH - possible sick euthyroid syndrome -due to illness - normal free T4 and low T 3 - repeat TSH in 3-4 weeks as pt improves clinically DVT PROPHYLAXIS - scd and teds - no pharmacologic anticoagulation due to hemolytic anemia DISPOSITION - family requests placement in correction as unable to take care at home - social service consulted for discharge planning FULL CODE Contact : Grand Daughter Ana Pineda Discharge planning: long-term facility Procedures: CT head 1. Interval development of mild mucosal thickening of the sinuses. Unchanging left frontal meningioma. Atrophy and chronic small vessel change unaltered from the prior exam. CT chest 1. No evidence for pulmonary embolus. 2. Small bibasilar parenchymal infiltrates superimposed upon chronic interstitial change. LE venous doppler No DVT within the right or left lower extremity. Lumbar spine xray Old compression deformity L1. Moderate degenerative disc changes throughout the entire lumbar region Current Inpatient Medications: Current Inpatient Medications Medications (Trade) Dose Ordered Sig/Mingo Route Start Time Stop Time Status Last Admin Dose Admin Acetaminophen (Tylenol Tab) 650 mg Q4H PRN PO 08/21/16 18:45 09/20/16 18:44 08/22/16 16:38 650 MG Al Hydrox/Mg Hydrox/Simethicone (Maalox Max Susp) 15 ml Q4H PRN PO 08/21/16 18:45 09/20/16 18:44 08/22/16 13:05 15 ML Magnesium Hydroxide (Milk Of Magnesia Susp) 30 ml Q6H PRN PO 08/21/16 18:45 09/20/16 18:44 Polyethylene (Miralax Powder Packet) 17 gm DAILY PRN PO 08/21/16 19:00 09/20/16 18:59 Ondansetron HCl 4 mg 4 mg Q6H PRN IV 08/21/16 18:45 09/20/16 18:44 Sodium Chloride (Nss 1000ml) 1,000 ml @ 80 mls/hr [id number] IV 08/21/16 18:45 09/20/16 18:44 08/22/16 09:17 80 MLS/HR Ioversol 100 ml 100 ml UD PRN IV 08/21/16 19:30 08/25/16 19:29 Ceftriaxone Sodium/Dextrose (Rocephin Inj/ Dextrose Add-Briscoe 50ML) 50 ml @ 100 mls/hr Q24H IV 08/21/16 22:00 08/28/16 21:59 08/21/16 22:26 100 MLS/HR Azithromycin (Zithromax Tab) 500 mg QAM PO 08/22/16 09:00 08/29/16 08:59 08/22/16 09:18 500 MG Miscellaneous (Xopenex/ Atrovent Neb) 1 ea Q6R INH 08/22/16 21:00 09/21/16 20:59 UNV
[2016-08-22] MEDS: LEVALBUTEROL 1.25MG/0.5ML NEB INH SCH (21:00)
[2016-08-22] MEDS: IPRATROPIUM BROMIDE NEB SOLN 0.02% 2.5 ML VIAL INH SCH (21:00)
[2016-08-22] MEDS ORDERED: LEVALBUTEROL/IPRATROPIUM NEB INH SCH (21:00)
[2016-08-22] MEDS: LIDODERM (LIDOCAINE) PATCH 5% TD SCH (22:31)
[2016-08-22] MEDS: CEFTRIAXONE SOD INJ 1 GM in DEXTROSE 5% ADD-VANTAGE 50ML 50 ML IV SCH (22:34)
[2016-08-23 00:13] VITALS: BP 116/71; PULSE 76; TEMP 36.9; O2SAT 98
[2016-08-23 01:52] VITALS: PULSE 74; O2SAT 98
[2016-08-23] MEDS: IPRATROPIUM BROMIDE NEB SOLN 0.02% 2.5 ML VIAL INH SCH ×4 (01:52→20:34)
[2016-08-23] MEDS: LEVALBUTEROL 1.25MG/0.5ML NEB INH SCH ×4 (01:52→20:34)
[2016-08-23 07:15] LABS: MEAN CELL VOLUME 86.3 fL (80-100); MEAN CORPUSCULAR HEMOGLOBIN 28.2 pg (25-34); MEAN CORPUSCULAR HGB CONC 32.7 g/dl (32-36); MEAN PLATELET VOLUME 8.8 fL (7.4-10.4); PLATELET COUNT 196 K/uL (130-400); RED BLOOD COUNT 2.55 M/uL (4.2-5.4)
[2016-08-23 07:33] VITALS: PULSE 77; O2SAT 98
[2016-08-23 07:46] VITALS: BP 121/75; PULSE 84; TEMP 36.5; O2SAT 97
[2016-08-23 08:15] LABS: BUN/CREATININE RATIO 30.4 (10-20); CALCIUM 8.2 mg/dl (8.5-10.1); CREATININE 0.49 mg/dl (0.60-1.20); MAGNESIUM 2.3 mg/dl (1.8-2.4)
[2016-08-23] MEDS: LIDODERM (LIDOCAINE) PATCH 5% TD SCH (08:29)
[2016-08-23] MEDS: AZITHROMYCIN 250 MG TAB PO SCH (08:30)
[2016-08-23] MEDS: ACETAMINOPHEN 325 MG TAB PO PRN (09:55)
[2016-08-23] MEDS: ALUMINUM/MAGNESIUM/SIMETH (MAALOX MAX) 30 ML UDC PO PRN (11:21)
[2016-08-23] MEDS ORDERED: ALBUTEROL 0.083% NEBU SOLN 3 ML VIAL INH PRN (11:30)
--- NOTE | 2016-08-23 11:59 | Progress Note ---
Internal Med Progress Note Date of Service: Aug 23, 2016. Provider Documentation: SUBJECTIVE: Patient is seen and examined at bedside. Patient speaks Lithuanian, grand daughter helped with conversation. Patient has been intermittently confused since about 3 weeks. Currently denies any chest pain, SOB but reports wheezing, dry cough and mild abdominal pain associated with coughing. OBJECTIVE: Vital Signs-as noted below Physical Exam: General Appearance:Thin, fragile, chronically ill appearing. no apparent distress Head: normocephalic, Atraumatic Eyes: normal inspection, EOMI, PERRL Neck: supple, no JVD, Trachea midline Respiratory/Chest: Creps b/l at bases, decreased breath sounds at bases. No accessory muscle use Cardiovascular: S1, S2, No murmur Abdomen/GI:Soft, Non tender, Bowel sounds present, No guarding/rigidity Extremities/Musculoskelatal:normal inspection,no edema Neurologic/Psych:grossly no focal neurological deficits Skin: normal color, warm Lab data as noted below. ASSESSMENT & PLAN: POSSIBLE PNEUMONIA CT chest with bibasilar parenchymal infiltrates continue Rocephin (start 08/21/16) / Zithromax (start 08/22/16) Follow up blood and sputum cultures: No growth to date continue supplemental oxygen, nebulizers HYPOKALEMIA: Will replace and monitor Magnesium levels wnl ELEVATED D DIMER likely due to infection CT chest negative for PE LE doppler negative for DVT METABOLIC ENCEPHALOPATHY likely secondary to infection, dehydration, medications (on tramadol, hydroxyzine as outpatient) CT head negative for acute process continue to monitor BACK PAIN /FALL xray of Lumber spine with old L1 compression deformity and moderate degenerative changes lidocaine patch and Tylenol PRN for pain PT/OT: May need SNF HEMOLYTIC ANEMIA Follows with Dr Whitehead as outpatient Current Hb:7.2 Had planned for weekly Rituxan as outpatient Will consult Heme Onchology Haptoglobin, direct Ignacia: pending absolute retic low-normal LDH mildly elevated LOW TSH Likely sick euthyroid syndrome normal free T4 and low T 3 Needs repeat TSH in 3-4 weeks as outpatient DVT PROPHYLAXIS SCDs Pharmacologic anticoagulation contraindicated DISPOSITION family requests: placement in retirement as unable to take care at home - social service consulted CODE STATUS: Full code Contact : Grand Daughter Ana Pineda Discharge planning: SNF Procedures: CT head 1. Interval development of mild mucosal thickening of the sinuses. Unchanging left frontal meningioma. Atrophy and chronic small vessel change unaltered from the prior exam. CT chest 1. No evidence for pulmonary embolus. 2. Small bibasilar parenchymal infiltrates superimposed upon chronic interstitial change. LE venous doppler No DVT within the right or left lower extremity. Lumbar spine xray Old compression deformity L1. Moderate degenerative disc changes throughout the entire lumbar region Vital Signs: Date Time Temp Pulse Resp B/P Pulse Ox O2 Delivery O2 Flow Rate FiO2 08/23/16 07:46 36.5 84 14 121/75 97 Nasal Cannula 2.0 08/23/16 07:33 77 16 98 Nasal Cannula 3.0 08/23/16 01:52 74 16 98 Nasal Cannula 3.0 08/23/16 00:13 36.9 76 18 116/71 98 3.0 08/22/16 23:45 Nasal Cannula 3.0 08/22/16 20:00 Nasal Cannula 3.0 08/22/16 19:51 36.5 78 20 101/62 97 Nasal Cannula 3.0 08/22/16 17:39 37.8 08/22/16 15:49 Nasal Cannula 3.0 08/22/16 15:20 38.1 97 18 99/66 95 Nasal Cannula 3.0 Lab Results: Results Past 24 Hours Test 08/23/16 07:00 Range/Units White Blood Count 6.40 4.8-10.8 K/uL Red Blood Count 2.55 4.2-5.4 M/uL Hemoglobin 7.2 12.0-16.0 g/dL Hematocrit 22.0 37-47 % Mean Corpuscular Volume 86.3 80-100 fL Mean Corpuscular Hemoglobin 28.2 25-34 pg Mean Corpuscular Hemoglobin Concent 32.7 32-36 g/dl RDW Standard Deviation 47.5 36.4-46.3 fL RDW Coefficient of Variation 14.8 11.5-14.5 % Platelet Count 196 130-400 K/uL Mean Platelet Volume 8.8 7.4-10.4 fL Sodium Level 143 136-145 mmol/L Potassium Level 3.0 3.5-5.1 mmol/L Chloride Level 109 98-107 mmol/L Carbon Dioxide Level 24 21-32 mmol/L Anion Gap 10.0 3-11 mmol/L Blood Urea Nitrogen 15 7-18 mg/dl Creatinine 0.49 0.60-1.20 mg/dl Est Creatinine Clear Calc Drug Dose 59.2 ml/min Estimated GFR () 102.2 Estimated GFR (Non- 88.2 BUN/Creatinine Ratio 30.4 10-20 Random Glucose 83 70-99 mg/dl Calcium Level 8.2 8.5-10.1 mg/dl Magnesium Level 2.3 1.8-2.4 mg/dl Total Bilirubin 0.9 0.2-1 mg/dl Direct Bilirubin 0.3 0-0.2 mg/dl Aspartate Amino Transf (AST/SGOT) 34 15-37 U/L Alanine Aminotransferase (ALT/SGPT) 19 12-78 U/L Alkaline Phosphatase 65 45-117 U/L Total Protein 6.5 6.4-8.2 gm/dl Albumin 2.4 3.4-5.0 gm/dl
[2016-08-23] MEDS ORDERED: POTASSIUM CHLORIDE 20 MEQ TABCR PO ONE ×2 (12:00→18:00)
[2016-08-23 14:52] VITALS: BP 102/64; PULSE 77; TEMP 36.3; O2SAT 100
[2016-08-23] MEDS: FAMOTIDINE IV INJ 20 MG in DEXTROSE 5% 100ML 100 ML IV SCH (20:25)
[2016-08-23] MEDS: CALCIUM 600MG + VIT D 400 IU TAB PO SCH (20:26)
[2016-08-23 20:38] VITALS: PULSE 79; O2SAT 94
[2016-08-23] MEDS: CEFTRIAXONE SOD INJ 1 GM in DEXTROSE 5% ADD-VANTAGE 50ML 50 ML IV SCH (22:41)
[2016-08-24] VITALS (9 sets, daily range): BP systolic 121–157; BP diastolic 79–94; PULSE 55–107; TEMP 36.5–36.8; O2SAT 92–100
[2016-08-24] MEDS: IPRATROPIUM BROMIDE NEB SOLN 0.02% 2.5 ML VIAL INH SCH ×4 (01:57→19:16)
[2016-08-24] MEDS: LEVALBUTEROL 1.25MG/0.5ML NEB INH SCH ×4 (01:57→19:16)
[2016-08-24] MEDS: CALCIUM 600MG + VIT D 400 IU TAB PO SCH ×2 (07:25→20:00)
[2016-08-24] MEDS: AZITHROMYCIN 250 MG TAB PO SCH (07:26)
--- NOTE | 2016-08-24 07:27 | DIAGNOSTIC IMAGING REPORT ---
CHEST ONE VIEW PORTABLE HISTORY: Short of breath. Wheezing. COMPARISON: Chest 08/21/2016. FINDINGS: No pneumothorax. There are low lung volumes. Cardiac mediastinal silhouette is stable. Diffuse interstitial thickening with progressive bibasilar hazy opacities. The upper lung zones are clear. IMPRESSION: There is diffuse interstitial thickening which remains unchanged. Bibasilar hazy opacities have developed. This could represent developing congestive change or a pneumonia. Electronically signed by: Denis Arredondo M.D. 08/24/2016 7:26 AM Dictated Date/Time: 08/24/2016 7:25 AM
[2016-08-24] MEDS: FAMOTIDINE IV INJ 20 MG in DEXTROSE 5% 100ML 100 ML IV SCH ×2 (07:37→20:00)
[2016-08-24] MEDS: LIDODERM (LIDOCAINE) PATCH 5% TD SCH (08:00)
[2016-08-24 08:25] LABS: BASO % 0.6 %; BASO ABS # 0.02 K/uL (0-0.2); HEMATOCRIT 25.1 % (37-47); IG% 0.3 %; LYMPH % 13.9 %; LYMPH ABS # 0.46 K/uL (1.2-3.4); MEAN CELL VOLUME 86.3 fL (80-100); MEAN CORPUSCULAR HEMOGLOBIN 28.2 pg (25-34); MEAN CORPUSCULAR HGB CONC 32.7 g/dl (32-36); MEAN PLATELET VOLUME 9.2 fL (7.4-10.4); MONO % 4.2 %; PLATELET COUNT 259 K/uL (130-400); RED BLOOD COUNT 2.91 M/uL (4.2-5.4); WHITE BLOOD COUNT 3.31 K/uL (4.8-10.8)
[2016-08-24 09:01] LABS: COMPLETE YES
[2016-08-24 09:20] LABS: CALCIUM 8.8 mg/dl (8.5-10.1); CREATININE 0.65 mg/dl (0.60-1.20); MAGNESIUM 2.4 mg/dl (1.8-2.4)
[2016-08-24 09:24] LABS: POTASSIUM 4.5 mmol/L (3.5-5.1)
--- NOTE | 2016-08-24 12:39 | Progress Note ---
Internal Med Progress Note Date of Service: Aug 24, 2016. Provider Documentation: SUBJECTIVE: Patient is seen and examined at bedside. Patient speaks Estonian, grand daughter helped with conversation. Patient very confused this morning per family and staff. She denies any chest pain, SOB. " Patient believes to be in [place] per family" OBJECTIVE: Vital Signs-as noted below Physical Exam: General Appearance:Thin, fragile, chronically ill appearing. no apparent distress Head: normocephalic, Atraumatic Eyes: normal inspection, EOMI, PERRL Neck: supple, no JVD, Trachea midline Respiratory/Chest: Normal breath sounds. CTA. accessory muscle use Cardiovascular: S1, S2, No murmur Abdomen/GI:Soft, Non tender, Bowel sounds present, No guarding/rigidity Extremities/Musculoskelatal:normal inspection,no edema Neurologic/Psych:grossly no focal neurological deficits, + confusion Skin: normal color, warm Lab data as noted below. ASSESSMENT & PLAN: POSSIBLE PNEUMONIA CT chest with bibasilar parenchymal infiltrates continue Rocephin (start 08/21/16) / Zithromax (start 08/22/16) Follow up blood and sputum cultures: No growth to date continue supplemental oxygen, nebulizers Titrate off oxygen to RA METABOLIC ENCEPHALOPATHY Vs Dementia likely secondary to infection, dehydration, medications (on tramadol, hydroxyzine as outpatient) CT head negative for acute process continue to monitor Will consult Neurology HYPOKALEMIA: Resolved Will monitor Magnesium levels wnl ELEVATED D DIMER likely due to infection CT chest negative for PE LE doppler negative for DVT BACK PAIN /FALL xray of Lumber spine with old L1 compression deformity and moderate degenerative changes lidocaine patch and Tylenol PRN for pain PT/OT: May need SNF HEMOLYTIC ANEMIA Discussed with Dr Whitehead- her hemeonchologist Current Hb:8.3 Had planned for weekly Rituxan as outpatient Continue Prednisone and folic acid Haptoglobin:100 Direct Ignacia: pending absolute retic low-normal LDH mildly elevated Calcium and Vit D supplements given history of osteoporosis GI Px: Famotidine LOW TSH Likely sick euthyroid syndrome normal free T4 and low T 3 Needs repeat TSH in 3-4 weeks as outpatient DVT PROPHYLAXIS SCDs Pharmacologic anticoagulation contraindicated DISPOSITION family requests: placement in [facility] as unable to take care at home social service consulted CODE STATUS: Full code Contact : Grand Daughter Ana Pineda Discharge planning: SNF Procedures: CT head 1. Interval development of mild mucosal thickening of the sinuses. Unchanging left frontal meningioma. Atrophy and chronic small vessel change unaltered from the prior exam. CT chest 1. No evidence for pulmonary embolus. 2. Small bibasilar parenchymal infiltrates superimposed upon chronic interstitial change. LE venous doppler No DVT within the right or left lower extremity. Lumbar spine xray Old compression deformity L1. Moderate degenerative disc changes throughout the entire lumbar region Vital Signs: Date Time Temp Pulse Resp B/P Pulse Ox O2 Delivery O2 Flow Rate FiO2 08/24/16 08:00 Nasal Cannula 2.0 08/24/16 06:44 36.5 85 20 121/79 99 2.0 08/24/16 01:58 55 16 96 Nasal Cannula 2.0 08/24/16 00:32 Room Air 08/24/16 00:22 36.8 78 18 142/82 99 2.0 08/23/16 20:38 79 16 94 Nasal Cannula 2.0 08/23/16 16:00 Nasal Cannula 2.0 08/23/16 14:52 36.3 77 18 102/64 100 Nasal Cannula 2.0 Lab Results: Results Past 24 Hours Test 08/23/16 20:28 08/24/16 07:49 Range/Units Total Bilirubin 0.7 0.5 0.2-1 mg/dl Direct Bilirubin 0.2 0.1 0-0.2 mg/dl Vitamin B12 Level 1001 211-911 pg/mL Folate 15.14 >5.38 ng/mL White Blood Count 3.31 4.8-10.8 K/uL Red Blood Count 2.91 4.2-5.4 M/uL Hemoglobin 8.2 12.0-16.0 g/dL Hematocrit 25.1 37-47 % Mean Corpuscular Volume 86.3 80-100 fL Mean Corpuscular Hemoglobin 28.2 25-34 pg Mean Corpuscular Hemoglobin Concent 32.7 32-36 g/dl Platelet Count 259 130-400 K/uL Mean Platelet Volume 9.2 7.4-10.4 fL Neutrophils (%) (Auto) 81.0 % Lymphocytes (%) (Auto) 13.9 % Monocytes (%) (Auto) 4.2 % Eosinophils (%) (Auto) 0.0 % Basophils (%) (Auto) 0.6 % Neutrophils # (Auto) 2.68 1.4-6.5 K/uL Lymphocytes # (Auto) 0.46 1.2-3.4 K/uL Monocytes # (Auto) 0.14 0.11-0.59 K/uL Eosinophils # (Auto) 0.00 0-0.5 K/uL Basophils # (Auto) 0.02 0-0.2 K/uL RDW Standard Deviation 46.8 36.4-46.3 fL RDW Coefficient of Variation 14.8 11.5-14.5 % Immature Granulocyte % (Auto) 0.3 % Immature Granulocyte # (Auto) 0.01 0.00-0.02 K/uL Red Blood Cell Morphology Unremarkable Sodium Level 142 136-145 mmol/L Potassium Level 4.5 3.5-5.1 mmol/L Chloride Level 109 98-107 mmol/L Carbon Dioxide Level 23 21-32 mmol/L Anion Gap 10.0 3-11 mmol/L Blood Urea Nitrogen 17 7-18 mg/dl Creatinine 0.65 0.60-1.20 mg/dl Est Creatinine Clear Calc Drug Dose 44.6 ml/min Estimated GFR () 93.2 Estimated GFR (Non- 80.4 BUN/Creatinine Ratio 26.0 10-20 Random Glucose 142 70-99 mg/dl Calcium Level 8.8 8.5-10.1 mg/dl Magnesium Level 2.4 1.8-2.4 mg/dl Aspartate Amino Transf (AST/SGOT) 74 15-37 U/L Alanine Aminotransferase (ALT/SGPT) 50 12-78 U/L Alkaline Phosphatase 76 45-117 U/L Total Protein 7.1 6.4-8.2 gm/dl Albumin 2.6 3.4-5.0 gm/dl
--- NOTE | 2016-08-24 15:37 | Medical Consult ---
Consultation Date of Consultation: Aug 24, 2016. Attending Physician: Al Parry MD Reason for Consultation: Acute exacerbation of anemia in setting of known autoimmune hemolytic anemia History of Present Illness Ms. 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 At diagnosis, she was started on prednisone and required 2 units of PRBCs to her hemoglobin at 5 G/ dL. The prednisone was gradually taper down. In August 2015 she received weekly Rituxan x [address] Whitehead was planning for possible repeat Rituxan in outpatient setting. She was brought to the emergency room on 08/21/2016 due to generalized pain, confusion, anorexia, and dyspnea for 2 weeks EQUITIES ANALYST. She apparently fell out of her bed 2 days prior to admission. She was treated for a urinary tract infection starting on 07/29/2016 was ciprofloxacin for 10 days. A limited history was obtained at admission due to language barrier as the patient and her family present spoke only Syriac and the software development analyst service could not understand the patient. She was noted to be hypoxic on room air in the emergency room and her admission hemoglobin was 9.6 g/dL. A chest x-ray on admission did not show acute consolidative findings, but a CT of the chest showed possible pneumonia. She was started on empiric antibiotics with Rocephin/ Zithromax. Blood and sputum cultures were ordered. She had an elevated D-dimer, but CT of the chest was negative for PE. Lower extremity Dopplers were negative for DVT. Her confusion was attributed to possible infection, dehydration medications (Tramadol / Vistaril). Her hemoglobin acutely dropped from admission at 9.6 g/dL to 7.3 g/dL 2 days ago, 7.2 yesterday, up to 8.[address] Whitehead spoke with the hospitalist attending yesterday regarding this development. Of note, the patient did have a direct hyperbilirubinemia. Her haptoglobin was within range, while the LDH was mildly elevated. Her AG is pending at this time. She was started on prednisone 50 mg daily as well as folic acid 1 mg daily. History was very limited at bedside- Syriac software development analyst accessed at bedside via iPad technology through [facility]. History supplemented briefly by phone call to patient's granddaughter, Ana Pineda. her granddaughter reports that the patient was having cough productive of phlegm and dyspnea yesterday. The granddaughter reports that she is not having bleeding from the bowel or bladder. The granddaughter was on her way into the hospital today at the time of the call. From the software development analyst, the patient reported feeling overall weak. She does not have chest pain. Further information was not able to be obtained. Past Medical/Surgical History Medical Problems: (1) Altered mental status Status: Acute (2) Dehydration Status: Acute (3) Hallucinations Status: Acute Family History Patient reports no known family medical history. Social History Smoking Status: Never Smoker Marital Status: Housing Status: lives with family Occupation Status: retired Allergies Coded Allergies: No Known Allergies (Unverified , 08/12/16) Current Inpatient Medications Current Inpatient Medications Medications (Trade) Dose Ordered Sig/[place] Route Start Time Stop Time Status Last Admin Dose Admin Acetaminophen (Tylenol Tab) 650 mg Q4H PRN PO 08/21/16 18:45 09/20/16 18:44 08/23/16 09:55 650 MG Al Hydrox/Mg Hydrox/Simethicone (Maalox Max Susp) 15 ml Q4H PRN PO 08/21/16 18:45 09/20/16 18:44 08/23/16 11:21 15 ML Magnesium Hydroxide (Milk Of Magnesia Susp) 30 ml Q6H PRN PO 08/21/16 18:45 09/20/16 18:44 Polyethylene (Miralax Powder Packet) 17 gm DAILY PRN PO 08/21/16 19:00 09/20/16 18:59 Ondansetron HCl (Zofran Inj) 4 mg Q6H PRN IV 08/21/16 18:45 09/20/16 18:44 Ioversol 100 ml 100 ml UD PRN IV 08/21/16 19:30 08/25/16 19:29 Ceftriaxone Sodium/Dextrose (Rocephin Inj/ Dextrose Add-[place] 50ML) 50 ml @ 100 mls/hr Q24H IV 08/21/16 22:00 08/28/16 21:59 08/23/16 22:41 100 MLS/HR Azithromycin (Zithromax Tab) 500 mg QAM PO 08/22/16 09:00 08/29/16 08:59 08/24/16 07:26 500 MG Lidocaine (Lidoderm Patch 5%) 1 patch QAM TD 08/22/16 20:30 09/21/16 20:29 08/23/16 08:29 1 PATCH Miscellaneous (Remove Lidoderm Patch) 1 ea DAILY@21 N/A 08/22/16 21:00 09/21/16 20:59 Ipratropium [place] (Atrovent 0.02% 0.5MG/2.5ML Neb) 0.5 mg Q6R INH 08/22/16 21:00 09/21/16 20:59 08/24/16 01:57 0.5 MG Levalbuterol (Xopenex 1.25MG/ 0.5ML Neb) 1.25 mg Q6R INH 08/22/16 21:00 09/21/16 20:59 08/24/16 01:57 1.25 MG Albuterol Sulfate 2.5 mg 2.5 mg Q2R PRN INH 08/23/16 11:30 09/22/16 11:29 Famotidine/ Dextrose (Pepcid IV Inj/ D5 100ml) 102 ml @ 200 mls/hr Q12@0800,2000 IV 08/23/16 20:00 09/22/16 19:59 08/24/16 07:37 200 MLS/HR Prednisone (PredniSONE TAB) 50 mg DAILY PO 08/24/16 08:00 09/23/16 07:59 08/24/16 07:27 50 MG Folic Acid (Folvite Tab) 1 mg QAM PO 08/24/16 08:00 09/23/16 07:59 08/24/16 07:25 1 MG Calcium/Vitamin D (Caltrate Plus Tab) 1 tab BID PO 08/23/16 20:00 09/22/16 19:59 08/24/16 07:25 1 TAB Review of Systems Constitutional: + weakness, No fever Respiratory: + cough, + shortness of breath, + sputum Cardiovascular: No chest pain Abdomen: + diarrhea (started yesterday), No GI bleeding Genitourinary - Female: No hematuria Hematologic / Lymphatic: + problem reported (has AIHA) Physical Exam Date Time Temp Pulse Resp B/P Pulse Ox O2 Delivery O2 Flow Rate FiO2 08/24/16 06:44 36.5 85 20 121/79 99 2.0 08/24/16 01:58 55 16 96 Nasal Cannula 2.0 08/24/16 00:32 Room Air 08/24/16 00:22 36.8 78 18 142/82 99 2.0 08/23/16 20:38 79 16 94 Nasal Cannula 2.0 08/23/16 16:00 Nasal Cannula 2.0 08/23/16 14:52 36.3 77 18 102/64 100 Nasal Cannula 2.0 General Appearance: WD/WN, no apparent distress ENT: hearing grossly normal Respiratory/Chest: no respiratory distress, no accessory muscle use, + crackles (at bases) Cardiovascular: regular rate, rhythm Abdomen/GI: normal bowel sounds, non tender, soft Extremities/Musculoskelatal: no calf tenderness, no pedal edema Neurologic/Psych: no motor/sensory deficits, alert Skin: normal color, warm/dry Laboratory Results 08/22/16 05:40 08/23/16 07:00 08/24/16 07:49 Red Blood Count 2.91, Mean Corpuscular Volume 86.3, Mean Corpuscular Hemoglobin 28.2, Mean Corpuscular Hemoglobin Concent 32.7, Mean Platelet Volume 9.2, Neutrophils (%) (Auto) 81.0, Lymphocytes (%) (Auto) 13.9, Monocytes (%) (Auto) 4.2, Eosinophils (%) (Auto) 0.0, Basophils (%) (Auto) 0.6, Neutrophils # (Auto) 2.68, Lymphocytes # (Auto) 0.46, Monocytes # (Auto) 0.14, Eosinophils # (Auto) 0.00, Basophils # (Auto) 0.02 08/22/16 05:40 08/23/16 07:00 08/24/16 07:49 Test 08/21/16 18:53 08/22/16 05:40 08/22/16 09:15 08/23/16 07:00 D-Dimer 4270 ug/L FEU (0-500) Free Thyroxine 1.40 ng/dl (0.80-1.60) Free Triiodothyronine 1.74 pg/ml (2.30-4.20) Red Blood Count 2.61 M/uL (4.2-5.4) 2.55 M/uL (4.2-5.4) Mean Corpuscular Volume 87.7 fL (80-100) 86.3 fL (80-100) Mean Corpuscular Hemoglobin 28.0 pg (25-34) 28.2 pg (25-34) Mean Corpuscular Hemoglobin Concent 31.9 g/dl (32-36) 32.7 g/dl (32-36) RDW Standard Deviation 47.6 fL (36.4-46.3) 47.5 fL (36.4-46.3) RDW Coefficient of Variation 14.8 % (11.5-14.5) 14.8 % (11.5-14.5) Mean Platelet Volume 8.7 fL (7.4-10.4) 8.8 fL (7.4-10.4) Nucleated RBC Absolute Count (auto) 0.00 K/uL (0-0) Nucleated Red Blood Cells % 0.0 % Peripheral Blood Smear Path Consult Anion Gap 12.0 mmol/L (3-11) 10.0 mmol/L (3-11) Est Creatinine Clear Calc Drug Dose 45.3 ml/min 59.2 ml/min Estimated GFR () 93.6 102.2 Estimated GFR (Non- 80.8 88.2 BUN/Creatinine Ratio 28.0 (10-20) 30.4 (10-20) Calcium Level 8.3 mg/dl (8.5-10.1) 8.2 mg/dl (8.5-10.1) Magnesium Level 2.2 mg/dl (1.8-2.4) 2.3 mg/dl (1.8-2.4) Total Bilirubin 1.6 mg/dl (0.2-1) 0.9 mg/dl (0.2-1) Direct Bilirubin 0.6 mg/dl (0-0.2) 0.3 mg/dl (0-0.2) Aspartate Amino Transf (AST/SGOT) 27 U/L (15-37) 34 U/L (15-37) Alanine Aminotransferase (ALT/SGPT) 17 U/L (12-78) 19 U/L (12-78) Alkaline Phosphatase 64 U/L (45-117) 65 U/L (45-117) Total Protein 6.6 gm/dl (6.4-8.2) 6.5 gm/dl (6.4-8.2) Albumin 2.5 gm/dl (3.4-5.0) 2.4 gm/dl (3.4-5.0) Absolute Reticulocyte Count 0.06 10^6/uL (0.02-0.10) Percent Reticulocyte Count 2.2 % (0.5-2.0) Haptoglobin 100 MG/DL (43-212) Lactate Dehydrogenase 291 U/L (84-246) Test 08/23/16 20:28 08/24/16 07:49 Total Bilirubin 0.7 mg/dl (0.2-1) 0.5 mg/dl (0.2-1) Direct Bilirubin 0.2 mg/dl (0-0.2) 0.1 mg/dl (0-0.2) Vitamin B12 Level 1001 pg/mL (211-911) Folate 15.14 ng/mL (>5.38) White Blood Count 3.31 K/uL (4.8-10.8) Red Blood Count 2.91 M/uL (4.2-5.4) Hemoglobin 8.2 g/dL (12.0-16.0) Hematocrit 25.1 % (37-47) Mean Corpuscular Volume 86.3 fL (80-100) Mean Corpuscular Hemoglobin 28.2 pg (25-34) Mean Corpuscular Hemoglobin Concent 32.7 g/dl (32-36) Platelet Count 259 K/uL (130-400) Mean Platelet Volume 9.2 fL (7.4-10.4) Neutrophils (%) (Auto) 81.0 % Lymphocytes (%) (Auto) 13.9 % Monocytes (%) (Auto) 4.2 % Eosinophils (%) (Auto) 0.0 % Basophils (%) (Auto) 0.6 % Neutrophils # (Auto) 2.68 K/uL (1.4-6.5) Lymphocytes # (Auto) 0.46 K/uL (1.2-3.4) Monocytes # (Auto) 0.14 K/uL (0.11-0.59) Eosinophils # (Auto) 0.00 K/uL (0-0.5) Basophils # (Auto) 0.02 K/uL (0-0.2) RDW Standard Deviation 46.8 fL (36.4-46.3) RDW Coefficient of Variation 14.8 % (11.5-14.5) Immature Granulocyte % (Auto) 0.3 % Immature Granulocyte # (Auto) 0.01 K/uL (0.00-0.02) Red Blood Cell Morphology Unremarkable Anion Gap 10.0 mmol/L (3-11) Est Creatinine Clear Calc Drug Dose 44.6 ml/min Estimated GFR () 93.2 Estimated GFR (Non- 80.4 BUN/Creatinine Ratio 26.0 (10-20) Calcium Level 8.8 mg/dl (8.5-10.1) Magnesium Level 2.4 mg/dl (1.8-2.4) Aspartate Amino Transf (AST/SGOT) 74 U/L (15-37) Alanine Aminotransferase (ALT/SGPT) 50 U/L (12-78) Alkaline Phosphatase 76 U/L (45-117) Total Protein 7.1 gm/dl (6.4-8.2) Albumin 2.6 gm/dl (3.4-5.0) Date/Time Source Procedure Growth Status 08/21/16 23:45 Urine , Clean Catch Urine Culture - Final NO GROWTH - LESS THAN 1,000 COLONIES/ML Complete 08/22/2016: Direct antibody test positive AG IgG 4+ AG polyspecific 4+ AG C3d 1+ Blood cultures x2 negative to date. Urine culture negative. Chest x-ray from 08/21/2016: Mild diffuse interstitial thickening which appears to be chronic. No new focal lung consolidations to suggest pneumonia. CT of the head from 08/21/2016: Interval development of mild mucosal thickening of the sinuses. Unchanging left frontal meningioma. Atrophy and chronic small vessel change unaltered from the prior exam. CT thorax from 08/21/2016: Small bibasilar parenchymal infiltrates superimposed upon chronic interstitial change. No evidence for pulmonary embolus. LE venous Doppler from 08/21/2016: No DVT within the right or left lower extremity. Chest x-ray from 08/24/2016: Diffuse interstitial thickening which remains unchanged. Bibasilar hazy opacities have developed. This could represent developing congestive change or pneumonia. Assessment & Plan (1) Pneumonia of both lower lobes Assessment & Plan: Per hospitalist team- pt currently on Rocephin and azithromycin. Discussed development with Dr. Whitehead- she recommended pulmonology consult for consideration of prolonged use of high dose prednisone for autoimmune hemolytic anemia in the setting of acute bibasilar pneumonia; she has concern for immunosuppression while patient is on active treatment for pneumonia. I discussed with hospitalist- Dr. Parry, he is agreeable and asked for heme/onc to place consult. (2) Hemolytic anemia Status: Chronic Assessment & Plan: Patient has AIHA diagnosed in 2013. At initial diagnosis, she was placed on prednisone, which was then able to start to be tapered after 2 -3 months, was on prednisone for about 15 months. Discontinued in late 2014/ early 2015. Received Rituxan back in 09/2015 for this condition and plan was to restart Rituxan this coming month. Patient developed acute hemolysis during this hospitalization with about a 2 g/ dL decrease in Hgb, elevated LDH, direct hyperbilirubinemia, positive AG, ( normal haptoglobin and retic), possibly from acute infection. New drugs started during this hospitalization are not likely contributory. Patient was started on prednisone 50 mg daily and folic acid 1 mg daily yesterday. 1g/dL increase in Hgb noted from yesterday to today. Direct hyperbilirubinemia almost resolved. Continue to monitor hemolysis markers, CBC, LFT daily while inpatient. Thanks for the consult. Patient seen and examined. I discussed with Sharon Ram PA-C. Please see her note above for details Patient's family - her grand-daughter and grand-daughter at bedside with her and translated per patient's wishes 85 year old female with history of jhon positive autoimmune hemolytic anemia, treated with PRBC transfusion and prednisone at that time, and then subsequently in 08/2015 she was treated with rituxan weekly x 4. She had worsening anemia in 9 range and low haptoglobin weekly rituxan was ordered outpatient. However, patient is currently admitted She was admitted with cough and dyspnea and confusion, generalized weakness and fatigue. She had hemoglobin 9.6g/dL on admission. Her hemoglobin dropped to 7.3 , then repeat was 7.2. Jhon is positive and smear was consistent with hemolytic anemia. I spoke to hospitalist Dr Parry and patient was started on prednisone 1mg/kg last night and folic acid supplement. Today her hemoglobin is 8.2. Patient reports that she feels better. Family state that she is more talkative and energetic today and she states that pain she had in the left groin/hip that she had previously has now resolved since she got prednisone. At times, she thinks she is at her home.Her grand-daughter states she was hallucinating earlier as well.She is not combative at this time. Recognizes her family. Gen: Awake and alert, NAD, talkative but Anicteric Neck: no adenopathy Lungs: +bibasilar crackles, no wheezes CV: S1 S2 RRR Abd: soft NT/ND Ext: no edema, nontender Labs: reviewed Imp:85 year old female with AIHA. She has received 2 doses already. Anemia is improved. Hold the prednisone at this time due to patient condition. She is also receiving antibiotics for possible PNA. Recommend pulmonary consult. Re-check CBCw/ diff in am. If still moderately anemic, we can consider lower dose of prednisone of 20mg daily and taper as tolerated. Discussed with Dr Reid.
[2016-08-24] MEDS: CEFTRIAXONE SOD INJ 1 GM in DEXTROSE 5% ADD-VANTAGE 50ML 50 ML IV SCH (20:36)
[2016-08-24] MEDS: LORAZEPAM IV PRN (20:36)
--- NOTE | 2016-08-24 20:42 | PROGRESS NOTE ---
DATE: 08/24/2016 REASON FOR CONSULTATION: Change in mental status. HISTORY OF PRESENT ILLNESS: Mrs. Banks is an 85-year-old, presumably right-handed Greenlandic speaking female who was seen in the company of her granddaughter who served as terminal carman. Earlier attempts to use the hospital translation systems were not effective as the terminal carman could not understand what the patient was saying. The patient has a history of autoimmune hemolytic anemia, for which she is intermittently on prednisone but has not been on such for at least several weeks to months, hypertension, and osteoporosis. Her granddaughter indicates that she had complained of generalized pain and would not get out of her bed or chair. She has chronic pain and rarely takes tramadol. Perhaps the only new medication around this time was an antihistamine. She had also complained of cough and shortness of breath. In the ER, the patient was hypoxic on room air and febrile. Her granddaughter indicates that prior to the last week or so, her grandmother was in her usual state of good health in general, had some minor difficulty with short-term memory but in general was cognitively intact. The patient's son about 6 months prior and he served as the primary caregiver to his mother. Through the use of her granddaughter as an diplomatic interpreter/translator, she complains of pain in the left leg but otherwise no headache. Her granddaughter indicates that motorically she is much improved, moving around the room but that she is restless, confused, at times a little bit paranoid. She has had hallucinations in the last several days. PAST MEDICAL HISTORY: As above. PAST SURGICAL HISTORY: The patient appears to have had a traumatic injury of the left knee. SOCIAL HISTORY: Nonsmoker, nondrinker. MEDICATIONS: PRN were Vistaril and tramadol and HCTZ. Of note, she was not on any prednisone on admission, but prednisone has been started. LABORATORY DATA: On admission, white count 9, H\T\H 9.6/29.3. The following day, the hemoglobin was 7.3/22.9. Platelet count 258 on admission, D-dimer 4270. PT, PTT normal. UA positive for 3+ ketones, 10-20 epithelial cells, 1-5 white cells. Chemistry profile: Sodium 140, potassium 3.5, BUN and creatinine 19/0.8, calcium 8.6, bilirubin 2.4, AST 41, ALT 25. TSH 0.185. Free T3 is 1.74. Free T4 1.4. CT of the head noncontrast, which I have reviewed is said to show an unchanged left frontal meningioma. That meningioma has minor local mass effect without edema. CURRENT MEDICATIONS: Prednisone, folic acid, famotidine, calcium, albuterol, Lidoderm patch, Atrovent, levalbuterol, Zithromax, ceftriaxone, magnesium hydroxide. PHYSICAL EXAMINATION: VITAL SIGNS: 36.8, 107, 118, 125/85, 95%. GENERAL: The patient is awake and alert, oriented only to self. No right/left confusion or aphasia is noted. Memory is 0/3 at 3 minutes. The patient exhibited some minor paranoia to her granddaughter who is the diplomatic interpreter/translator. NECK: There are no carotid bruits. HEART: No heart murmurs. Heart is regular rate and rhythm. EXTREMITIES: There is an old deformity of the left knee with an ecchymosis in the left perea. NEUROLOGIC: There is normal extraocular motility field, facial symmetry. There is no resting tremor or cogwheel rigidity. There is symmetric strength. Reflexes are mildly brisker on the right than the left. Toes are downgoing. No asymmetric sensory loss. Gait is appropriate for age. [id number] and [id number] are within normal limits for age. IMPRESSION: This is an 85-year-old with an apparent known left frontal meningioma and autoimmune hemolytic anemia who presented with a change in mental status of several days' duration associated with hypoxemia and a febrile state. I cannot exclude that the use of antihistamine may have contributed. We certainly cannot ascribe blame to the steroid use as it has not been used recently nor tramadol, as it is used occasionally. PLAN: Ongoing observation to see the level of improvement with treatment of the pneumonic process and anemia. If the patient fails to return to baseline, I would recommend some additional lab work including B12, folate, thyroid function and RPR and performing an MRI of the brain. I do not think the patient would be cooperative at this point. We will follow with you. CRISTOPHER
[2016-08-25] VITALS (7 sets, daily range): BP systolic 122–143; BP diastolic 79–88; PULSE 67–92; TEMP 36.2–37.3; O2SAT 93–95
[2016-08-25] MEDS ORDERED: LORAZEPAM 2 MG/ML 1 ML VIAL **EMERGENCY USE ONE ×2 (01:42→14:14)
[2016-08-25] MEDS: LORAZEPAM IV PRN ×2 (01:47→14:19)
[2016-08-25] MEDS: LEVALBUTEROL 1.25MG/0.5ML NEB INH SCH ×4 (02:08→19:03)
[2016-08-25] MEDS: IPRATROPIUM BROMIDE NEB SOLN 0.02% 2.5 ML VIAL INH SCH ×4 (02:08→19:03)
[2016-08-25] MEDS ORDERED: OLANZAPINE 2.5 MG TAB PO ONE (02:45)
--- NOTE | 2016-08-25 06:50 | Pulmonary Consultation ---
History General Date of Service: Aug 25, 2016. Stated Complaint: Altered Mental Status HPI The patient is a 85 year old female who presents to [facility] with complaints of Altered Mental Status. The patient's primary care provider is Michael Marino D.O.. By report was obtained to the EMS system was I have no reliable physical medicine teacher that at this time will return when patients granddaughter arrives. 85 y/o female who presented to [facility] ER for generalized pain, sever fatigue, fever, chills and a cough. During the interview with the family, in the ER, it was noted the patient has had a decreased appetite (little to no water or food intake), been confused and hallucinating for 2 weeks. Over that time the patient has fallen from her bed, been treated for a UTI with a 10 day course of Cipro (capmos-sensitive E. coli, 07/29/16: culture). At her baseline the patient is occasionally forgetful but is able to ambulate with a walker. During her admission the patient has been stared on prednisone 50mg/QD and Folic acid for an acute episode of hemolysis with drop in her hemoglobin to 7.2. At this time the patient is awake alert and interactive. She is also noncompliant with physical full examination will require granddaughter for interpretation. In the ER the patient was noted to be hypoxic with a SaO2 recorded at 89% on RA increasing to 92-97% on 2-3Lnc. Throughout the patients hospital stay she has only had one episode of documented tachypnea on 08/21/16 1351 hrs at a rate of 25. Also of note patient has no documentation of signs of increased work of breathing/respiratory insufficiency. Granddaughter Ana Pineda phone # Work-Up: Labs: 1.Hemoglobin: 9.67.28.2 2.WBC: 9.03.31 3.D-dimer: 4270 4.Albumin: 2.6 5.Influ A+B: negative 6.Microbiology a.Urine: no growth b.Blood x2 no growth CXR 08/24/16 (compared to 08/20/16) Expiratory film bilateral lower lobe infiltrates increasing Hilar fullness bilaterally Fluid in the right major fissure Minimal diffuse interstitial thickening --Multiple left hemithorax abnormal V-shaped images HEAD CT NONCONTRAST (compared to 08/12/16 and 03/04/14) Interval development of mild mucosal thickening of the sinuses. Unchanging left frontal meningioma. Atrophy and chronic small vessel change unaltered from the prior exam CTA chest (compared to 03/06/14) No evidence for pulmonary embolus. Bibasilar posterior infiltrates R>L with associated atelectasis and bronchiectasis Notable increase from previous exam LE venous doppler No DVT within the right or left lower extremity. Lumbar spine xray Old compression deformity L1. 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 Per the records noncontributory Social History Smoking Status: Never Smoker Housing Status: lives with family Occupation Status: retired Hx Tobacco Use In Past Year?: No Smoking Status: Never Smoker Marital status: Housing status: lives with family Occupational Status: retired Allergies Coded Allergies: No Known Allergies (Unverified , 08/12/16) Current Medications Reported Home Medications Medications Dose Route/Sig Max Daily Dose Days Date Category Dose Instructions Vistaril (Hydroxyzine Pamoate) 50 Mg Cap 50 Mg PO Q6H PRN 08/21/16 Reported PRN ITCH Hctz (Hydrochlorothiazide) 12.5 Mg Cap 12.5 Mg PO QAM 08/12/16 Reported Tramadol HCl 50 Mg Tab 50 Mg PO BID PRN 08/12/16 Reported Physical Physical Exam Vital Signs: Date Time Temp Pulse Resp B/P Pulse Ox O2 Delivery O2 Flow Rate FiO2 08/25/16 00:33 Room Air 08/24/16 23:50 36.6 78 20 157/94 98 Room Air 08/24/16 23:01 36.7 83 18 133/79 100 Room Air 08/24/16 19:16 71 16 94 Room Air 08/24/16 16:37 Room Air 08/24/16 15:09 36.8 107 18 125/85 97 Room Air 08/24/16 14:34 75 16 92 Room Air 08/24/16 13:40 97 Room Air 08/24/16 08:00 Nasal Cannula 2.0 08/24/16 06:44 36.5 85 20 121/79 99 2.0 General Appearance: WELL-APPEARING, NO APPARENT DISTRESS Head: NORMOCEPHALIC, ATRAUMATIC Eyes: NO DISCHARGE, EOMI, SCLERAE NORMAL ENT: NORMAL MOUTH EXAM, NORMAL THROAT EXAM, NORMAL DENTAL EXAM Neck: NORMAL RANGE OF MOTION, NO TENDERNESS, TRACHEA MIDLINE, NO STRIDOR Respiratory: BREATH SOUNDS NORMAL, CLEAR TO AUSCULTATION, CLEAR TO PERCUSSION Cardiovasular: REGULAR RATE/RHYTHM, NORMAL S1S2, NO M/G/R, NO MURMUR, NO GALLOP Abdomen: NON TENDER, NORMAL BOWEL SOUNDS, NO REBOUND, NO MASSES, NO GUARDING Genitourinary - Female: other (patient would not allow evaluation of genital region) Back: NORMAL INSPECTION, NO MIDLINE TENDERNESS, NO CVA TENDERNESS, NO PARAVERTEBRAL TTP Upper Extremities: NO EDEMA, NO DEFORMITY, NORMAL ROM Lower Extremities: NO EDEMA, NO DEFORMITY, NORMAL ROM Pulses: carotid (R) (2+), carotid (L) (2+), dorsalis pedis (R) (2+), dorsalis pedis (L) (2+) Neuro: ALERT, NORMAL MOTOR EXAM, NORMAL SENSATION Reflexes: biceps (R) (2+), bicpes (L) (2+) Babinski Testing: right (downgoing), left (downgoing) Psychiatric: other (unable to fully evaluate this patient speaks only Yi and proper physical medicine teacher/effective interpreters available ) Diagnostics Labs Results Past 24 Hours Test 08/24/16 07:49 08/24/16 18:55 08/25/16 04:44 Range/Units White Blood Count 3.31 4.8-10.8 K/uL Red Blood Count 2.91 4.2-5.4 M/uL Hemoglobin 8.2 12.0-16.0 g/dL Hematocrit 25.1 37-47 % Mean Corpuscular Volume 86.3 80-100 fL Mean Corpuscular Hemoglobin 28.2 25-34 pg Mean Corpuscular Hemoglobin Concent 32.7 32-36 g/dl Platelet Count 259 130-400 K/uL Mean Platelet Volume 9.2 7.4-10.4 fL Neutrophils (%) (Auto) 81.0 % Lymphocytes (%) (Auto) 13.9 % Monocytes (%) (Auto) 4.2 % Eosinophils (%) (Auto) 0.0 % Basophils (%) (Auto) 0.6 % Neutrophils # (Auto) 2.68 1.4-6.5 K/uL Lymphocytes # (Auto) 0.46 1.2-3.4 K/uL Monocytes # (Auto) 0.14 0.11-0.59 K/uL Eosinophils # (Auto) 0.00 0-0.5 K/uL Basophils # (Auto) 0.02 0-0.2 K/uL RDW Standard Deviation 46.8 36.4-46.3 fL RDW Coefficient of Variation 14.8 11.5-14.5 % Immature Granulocyte % (Auto) 0.3 % Immature Granulocyte # (Auto) 0.01 0.00-0.02 K/uL Red Blood Cell Morphology Unremarkable Sodium Level 142 136-145 mmol/L Potassium Level 4.5 3.5-5.1 mmol/L Chloride Level 109 98-107 mmol/L Carbon Dioxide Level 23 21-32 mmol/L Anion Gap 10.0 3-11 mmol/L Blood Urea Nitrogen 17 7-18 mg/dl Creatinine 0.65 0.60-1.20 mg/dl Est Creatinine Clear Calc Drug Dose 44.6 ml/min Estimated GFR () 93.2 Estimated GFR (Non- 80.4 BUN/Creatinine Ratio 26.0 10-20 Random Glucose 142 70-99 mg/dl Calcium Level 8.8 8.5-10.1 mg/dl Magnesium Level 2.4 1.8-2.4 mg/dl Total Bilirubin 0.5 0.2-1 mg/dl Direct Bilirubin 0.1 0-0.2 mg/dl Aspartate Amino Transf (AST/SGOT) 74 15-37 U/L Alanine Aminotransferase (ALT/SGPT) 50 12-78 U/L Alkaline Phosphatase 76 45-117 U/L Total Protein 7.1 6.4-8.2 gm/dl Albumin 2.6 3.4-5.0 gm/dl Ammonia < 10.0 11-32 umol/L Diagnostic Radiology CXR 08/24/16 (compared to 08/20/16) Expiratory film bilateral lower lobe infiltrates increasing Hilar fullness bilaterally Fluid in the right major fissure Minimal diffuse interstitial thickening Lingula V shaped object left sided HEAD CT NONCONTRAST (compared to 08/12/16 and 03/04/14) Interval development of mild mucosal thickening of the sinuses. Unchanging left frontal meningioma. Atrophy and chronic small vessel change unaltered from the prior exam CTA chest (compared to 03/06/14) No evidence for pulmonary embolus. Bibasilar posterior infiltrates R>L with associated atelectasis and bronchiectasis Notable increase from previous exam LE venous doppler No DVT within the right or left lower extremity. Lumbar spine xray Old compression deformity L1. Moderate degenerative disc changes throughout the entire lumbar region EKG Sinus tachycardia with signs of left ventricular hypertrophy Impression Assessment and Plan 85-year-old female admitted with altered mental status, acute/chronic hemolytic anemia and hypoxia: #1 Pseudo-Hypoxia: Patient's SaO2's have ranged from 89-97% on room air or via 3 L nasal cannula. Reviewing the chart no signs of respiratory insufficiency have been documented during the physical examination portions of the notes. Also reviewing vital sign monitoring there is been only one episode of tachycardia noted on the to respiratory rate of 25. To my examination the patient's SaO2 was noted to be 80% on room air she showed no signs of respiratory insufficiency and had good capillary refill. This could be pseudo- hypoxia secondary to poor SaO2/pulse ox patient compliance as well as with nail hungarian noted on all the patient's digits. [place] for evaluation will be an ABG but most likely this will require the patient's granddaughter to perform. #2 Hypoxia: Concerning is the radiographic analysis over the last 2 years with notable infiltrative versus groundglass changes back [place] [address] angiogram as well as increasing signs of infiltrate and bronchiectasis on most recent CT angiogram. Patient's chest x-rays during her admission and initial ED evaluation also showed increasing bilateral lower lobe infiltration. The increasing infiltration most likely from rehydration now with infiltrative predominance noted. Both of these findings could be consistent with chronic aspiration. I will place the patient on aspiration precautions and once again asked the granddaughter to help patient with swallow evaluation. As the patient' s radiographic analysis could be consistent with chronic aspiration as well as her recent history of altered mental status initiation of anaerobic coverage with Zosyn should be initiated. #3 Leukopenia: Patient's decreasing leukocyte count into a sub-optimal ranges concerning for possible progressive infection. At this time will change the patient to anaerobic coverage for broader spectrum. #4 Hemolytic Anemia: Agree with previous analysis as that acute onset of autoimmune hemolytic anemia most likely secondary to recent UTI now presenting secondary to volume resuscitation. Hematology oncology following.
[2016-08-25] MEDS ORDERED: PIPERACILL/TAZOBAC CONSULT ACTIVE PRN (07:00)
[2016-08-25] MEDS ORDERED: PIPERACILL/TAZOBAC IV 3.375 GM in DEXTROSE 5% 100ML IV ONE (07:15)
[2016-08-25 07:26] LABS: BASO % 0.2 %; BASO ABS # 0.01 K/uL (0-0.2); EOS % 0.2 %; IG% 1.3 %; LYMPH % 15.9 %; LYMPH ABS # 0.95 K/uL (1.2-3.4); MEAN CELL VOLUME 86.1 fL (80-100); MEAN CORPUSCULAR HEMOGLOBIN 27.8 pg (25-34); MEAN CORPUSCULAR HGB CONC 32.3 g/dl (32-36); MEAN PLATELET VOLUME 8.7 fL (7.4-10.4); MONO % 9.2 %; NEUT % 73.2 %; PLATELET COUNT 276 K/uL (130-400); RED BLOOD COUNT 3.02 M/uL (4.2-5.4); WHITE BLOOD COUNT 5.98 K/uL (4.8-10.8)
[2016-08-25] MEDS: CALCIUM 600MG + VIT D 400 IU TAB PO SCH ×2 (07:49→20:10)
[2016-08-25] MEDS: AZITHROMYCIN 250 MG TAB PO SCH (07:49)
[2016-08-25] MEDS: LIDODERM (LIDOCAINE) PATCH 5% TD SCH (07:50)
[2016-08-25] MEDS: FAMOTIDINE IV INJ 20 MG in DEXTROSE 5% 100ML 100 ML IV SCH ×2 (08:00→20:09)
[2016-08-25 08:01] LABS: COMPLETE YES; HYPOCHROMIA PRESENT; OVALOCYTES 1+; POLYCHROMASIA 1+
[2016-08-25 08:09] LABS: BUN/CREATININE RATIO 19.3 (10-20); CALCIUM 8.9 mg/dl (8.5-10.1); CREATININE 0.74 mg/dl (0.60-1.20); MAGNESIUM 2.3 mg/dl (1.8-2.4); POTASSIUM 3.6 mmol/L (3.5-5.1)
--- NOTE | 2016-08-25 13:28 | Progress Note ---
Internal Med Progress Note Date of Service: Aug 25, 2016. Provider Documentation: SUBJECTIVE: Patient is seen and examined at bedside. Patient speaks Ukrainian and no family member at bedside. Could not get any history. OBJECTIVE: Vital Signs-as noted below Physical Exam: General Appearance:Thin, fragile, chronically ill appearing. no apparent distress Head: normocephalic, Atraumatic Eyes: normal inspection, EOMI, PERRL Neck: supple, no JVD, Trachea midline Respiratory/Chest: Normal breath sounds. CTA. accessory muscle use Cardiovascular: S1, S2, No murmur Abdomen/GI:Soft, Non tender, Bowel sounds present, No guarding/rigidity Extremities/Musculoskelatal:normal inspection,no edema Neurologic/Psych:grossly no focal neurological deficits, + confusion Skin: normal color, warm Lab data as noted below. ASSESSMENT & PLAN: POSSIBLE PNEUMONIA CT chest with bibasilar parenchymal infiltrates Initially on Rocephin (start 08/21/16) / Zithromax (start 08/22/16)>>> Now added Zosyn given possible chronic aspiration history Blood and sputum cultures: No growth to date continue supplemental oxygen, nebulizers Titrate off oxygen to RA Appreciate Pulmonary input Will get speech and swallow eval METABOLIC ENCEPHALOPATHY Vs Dementia likely secondary to infection, dehydration, medications (on tramadol, hydroxyzine as outpatient) CT head negative for acute process continue to monitor Neurology following HEMOLYTIC ANEMIA Discussed with Dr Whitehead- her heme oncologist Current Hb:8.4 today Had planned for weekly Rituxan as outpatient S/P Prednisone 1mg/kg for 2 days: discontinued secondary to hallucinations Continue folic acid Haptoglobin:100 Direct Ignacia:Positive, Peripheral smear: consistent with hemolytic anemia absolute retic low-normal LDH mildly elevated Calcium and Vit D supplements given history of osteoporosis Heme oncology on board HYPOKALEMIA: Resolved Will monitor Magnesium levels wnl ELEVATED D DIMER likely due to infection CT chest negative for PE LE doppler negative for DVT BACK PAIN /FALL xray of Lumber spine with old L1 compression deformity and moderate degenerative changes lidocaine patch and Tylenol PRN for pain PT/OT: May need SNF GI Px: Famotidine LOW TSH Likely sick euthyroid syndrome normal free T4 and low T 3 Needs repeat TSH in 3-4 weeks as outpatient DVT PROPHYLAXIS SCDs Pharmacologic anticoagulation contraindicated DISPOSITION family requests: placement in care home as unable to take care at home social service consulted CODE STATUS: Full code Contact : Grand Daughter Ana Pineda Discharge planning: SNF structural ironworker consulted Procedures: CT head 1. Interval development of mild mucosal thickening of the sinuses. Unchanging left frontal meningioma. Atrophy and chronic small vessel change unaltered from the prior exam. CT chest 1. No evidence for pulmonary embolus. 2. Small bibasilar parenchymal infiltrates superimposed upon chronic interstitial change. LE venous doppler No DVT within the right or left lower extremity. Lumbar spine xray Old compression deformity L1. Moderate degenerative disc changes throughout the entire lumbar region Vital Signs: Date Time Temp Pulse Resp B/P Pulse Ox O2 Delivery O2 Flow Rate FiO2 08/25/16 09:00 36.2 83 16 122/79 95 Room Air 2.0 08/25/16 08:00 95 Room Air 08/25/16 07:44 67 16 95 Room Air 08/25/16 07:16 36.2 83 16 122/79 95 Room Air 08/25/16 00:33 Room Air 08/24/16 23:50 36.6 78 20 157/94 98 Room Air 08/24/16 23:01 36.7 83 18 133/79 100 Room Air 08/24/16 19:16 71 16 94 Room Air 08/24/16 16:37 Room Air 08/24/16 15:09 36.8 107 18 125/85 97 Room Air 08/24/16 14:34 75 16 92 Room Air 08/24/16 13:40 97 Room Air Lab Results: Results Past 24 Hours Test 08/24/16 18:55 08/25/16 07:10 Range/Units Ammonia < 10.0 11-32 umol/L White Blood Count 5.98 4.8-10.8 K/uL Red Blood Count 3.02 4.2-5.4 M/uL Hemoglobin 8.4 12.0-16.0 g/dL Hematocrit 26.0 37-47 % Mean Corpuscular Volume 86.1 80-100 fL Mean Corpuscular Hemoglobin 27.8 25-34 pg Mean Corpuscular Hemoglobin Concent 32.3 32-36 g/dl Platelet Count 276 130-400 K/uL Mean Platelet Volume 8.7 7.4-10.4 fL Neutrophils (%) (Auto) 73.2 % Lymphocytes (%) (Auto) 15.9 % Monocytes (%) (Auto) 9.2 % Eosinophils (%) (Auto) 0.2 % Basophils (%) (Auto) 0.2 % Neutrophils # (Auto) 4.38 1.4-6.5 K/uL Lymphocytes # (Auto) 0.95 1.2-3.4 K/uL Monocytes # (Auto) 0.55 0.11-0.59 K/uL Eosinophils # (Auto) 0.01 0-0.5 K/uL Basophils # (Auto) 0.01 0-0.2 K/uL RDW Standard Deviation 46.8 36.4-46.3 fL RDW Coefficient of Variation 14.9 11.5-14.5 % Immature Granulocyte % (Auto) 1.3 % Immature Granulocyte # (Auto) 0.08 0.00-0.02 K/uL Polychromasia 1+ Hypochromasia PRESENT Ovalocytes 1+ Sodium Level 143 136-145 mmol/L Potassium Level 3.6 3.5-5.1 mmol/L Chloride Level 108 98-107 mmol/L Carbon Dioxide Level 24 21-32 mmol/L Anion Gap 11.0 3-11 mmol/L Blood Urea Nitrogen 14 7-18 mg/dl Creatinine 0.74 0.60-1.20 mg/dl Est Creatinine Clear Calc Drug Dose 39.2 ml/min Estimated GFR () 85.0 Estimated GFR (Non- 73.4 BUN/Creatinine Ratio 19.3 10-20 Random Glucose 82 70-99 mg/dl Calcium Level 8.9 8.5-10.1 mg/dl Magnesium Level 2.3 1.8-2.4 mg/dl Total Bilirubin 0.4 0.2-1 mg/dl Direct Bilirubin 0.1 0-0.2 mg/dl Aspartate Amino Transf (AST/SGOT) 79 15-37 U/L Alanine Aminotransferase (ALT/SGPT) 59 12-78 U/L Alkaline Phosphatase 75 45-117 U/L Total Protein 7.2 6.4-8.2 gm/dl Albumin 2.9 3.4-5.0 gm/dl
[2016-08-25] MEDS: PIPERACILL/TAZOBAC IV 3.375 GM in DEXTROSE 5% 100ML 100 ML IV SCH ×2 (14:13→21:53)
[2016-08-26] VITALS (11 sets, daily range): BP systolic 113–150; BP diastolic 55–90; PULSE 73–114; TEMP 36.4–37.6; O2SAT 91–100
[2016-08-26] MEDS: IPRATROPIUM BROMIDE NEB SOLN 0.02% 2.5 ML VIAL INH SCH ×4 (01:55→19:26)
[2016-08-26] MEDS: LEVALBUTEROL 1.25MG/0.5ML NEB INH SCH ×4 (01:55→19:26)
[2016-08-26] MEDS: PIPERACILL/TAZOBAC IV 3.375 GM in DEXTROSE 5% 100ML 100 ML IV SCH ×3 (06:57→23:16)
[2016-08-26] MEDS: LIDODERM (LIDOCAINE) PATCH 5% TD SCH (09:00)
[2016-08-26] MEDS: CALCIUM 600MG + VIT D 400 IU TAB PO SCH ×2 (09:00→20:22)
[2016-08-26] MEDS: AZITHROMYCIN 250 MG TAB PO SCH (09:00)
[2016-08-26] MEDS: FAMOTIDINE IV INJ 20 MG in DEXTROSE 5% 100ML 100 ML IV SCH ×2 (10:53→20:21)
--- NOTE | 2016-08-26 11:46 | Pulmonology Progress Note ---
Pulmonary Progress Note Date of Service Aug 26, 2016. Attending Colton Rodrigez Subjective Patient sedated this am. Able to arouse but falls back to sleep quickly SaO2 RA (91-100%) HR: 87-98 I/O: 2.5L GEN: sedated RESP: CTA CARD: RRR no m/r/g Labs: 1)WBC: 6K rising 2)Microbiology: no growth to date Medications: 1)Zosyn 2)Xopenex Neb 3)Azithromycin Objective 85-year-old female admitted with altered mental status, acute/chronic hemolytic anemia and hypoxia: #1 Hypoxemia vs. Pseudo-Hypoxia: I have spoken her nurse today and ordered the ABG for definitive evaluation of her O2 content. f/u on ABG then possible d/c nebulizers #[address]: Patient has signs of progressive changes from previous CT over the last 2 years. With patients possible sun-downing and sedated state this am work-up for aspiration will have to be held. #3 Leukopenia: WBC count has risen back into the normal range. I suggest we continue Zosyn at this time for possible aspiration and Azithromycin for continued atypical coverage. Data Medications: Current Inpatient Medications Medications (Trade) Dose Ordered Sig/[place] Route Start Time Stop Time Status Last Admin Dose Admin Acetaminophen (Tylenol Tab) 650 mg Q4H PRN PO 08/21/16 18:45 09/20/16 18:44 08/23/16 09:55 650 MG Al Hydrox/Mg Hydrox/Simethicone (Maalox Max Susp) 15 ml Q4H PRN PO 08/21/16 18:45 09/20/16 18:44 08/23/16 11:21 15 ML Magnesium Hydroxide (Milk Of Magnesia Susp) 30 ml Q6H PRN PO 08/21/16 18:45 09/20/16 18:44 Polyethylene (Miralax Powder Packet) 17 gm DAILY PRN PO 08/21/16 19:00 09/20/16 18:59 Ondansetron HCl (Zofran Inj) 4 mg Q6H PRN IV 08/21/16 18:45 09/20/16 18:44 Azithromycin (Zithromax Tab) 500 mg QAM PO 08/22/16 09:00 08/29/16 08:59 08/25/16 07:49 500 MG Lidocaine (Lidoderm Patch 5%) 1 patch QAM TD 08/22/16 20:30 09/21/16 20:29 08/25/16 07:50 1 PATCH Miscellaneous (Remove Lidoderm Patch) 1 ea DAILY@21 N/A 08/22/16 21:00 09/21/16 20:59 08/25/16 20:09 1 EA Ipratropium Mentor (Atrovent 0.02% 0.5MG/2.5ML Neb) 0.5 mg Q6R INH 08/22/16 21:00 09/21/16 20:59 08/26/16 07:46 0.5 MG Levalbuterol (Xopenex 1.25MG/ 0.5ML Neb) 1.25 mg Q6R INH 08/22/16 21:00 09/21/16 20:59 08/26/16 07:47 1.25 MG Albuterol Sulfate 2.5 mg 2.5 mg Q2R PRN INH 08/23/16 11:30 09/22/16 11:29 Famotidine/ Dextrose (Pepcid IV Inj/ D5 100ml) 102 ml @ 200 mls/hr Q12@0800,2000 IV 08/23/16 20:00 09/22/16 19:59 08/26/16 10:53 200 MLS/HR Folic Acid (Folvite Tab) 1 mg QAM PO 08/24/16 08:00 09/23/16 07:59 08/25/16 07:49 1 MG Calcium/Vitamin D 1 tab 1 tab BID PO 08/23/16 20:00 09/22/16 19:59 08/25/16 07:49 1 TAB Lorazepam 0.25 mg/ Syringe 0.5 ml @ 0.5 mls/min Q6H PRN IV 08/24/16 20:00 09/23/16 19:59 08/25/16 14:19 0.5 MLS/MIN Piperacillin Sod/ Tazobactam Sod/ Dextrose (Zosyn Iv/D5 100ml) 115 ml @ 28.75 mls/ hr Q8H IV 08/25/16 14:00 09/01/16 13:59 08/26/16 06:57 28.75 MLS/HR Piperacillin Sod/ Tazobactam Sod (Consult) 1 ea UD PRN N/A 08/25/16 07:00 09/24/16 06:59 I & O: 24-Hour Column 08/26/16 08:00 Intake Total 0 ml Balance 0 ml Vital Signs: Date Time Temp Pulse Resp B/P Pulse Ox O2 Delivery O2 Flow Rate FiO2 08/26/16 10:57 37.0 98 18 113/84 91 Room Air 08/26/16 09:00 Room Air 08/26/16 07:46 87 16 93 Room Air 08/26/16 00:00 95 Room Air 08/25/16 19:35 37.3 92 16 143/88 08/25/16 19:03 90 16 93 Room Air 08/25/16 16:00 Room Air 08/25/16 14:28 89 16 94 Room Air Laboratory Results: Last 24 Hours Test 08/26/16 11:23
[2016-08-26 12:43] LABS: ARTERIAL BLD GAS O2 SATURATION 93.6 % (90-95); ARTERIAL BLOOD GAS BASE EXCESS 1.5 mEq/L (-9-1.8); ARTERIAL BLOOD GAS HCO3 24 mmol/L (19-24); ARTERIAL BLOOD GAS PO2 71 mm/Hg (80-95)
[2016-08-26 12:44] LABS: ALLEN TEST POS (POS); ARTERIAL BLOOD GAS pH 7.52 (7.35-7.45); O2 ADMINISTRATION ROOM AIR
[2016-08-26 14:07] LABS: BASO % 0.4 %; BASO ABS # 0.02 K/uL (0-0.2); EOS % 0.2 %; HEMATOCRIT 26.4 % (37-47); IG% 1.7 %; LYMPH % 13.3 %; LYMPH ABS # 0.63 K/uL (1.2-3.4); MEAN CELL VOLUME 86.6 fL (80-100); MEAN CORPUSCULAR HEMOGLOBIN 28.2 pg (25-34); MEAN PLATELET VOLUME 8.9 fL (7.4-10.4); MONO % 10.3 %; NEUT % 74.1 %; PLATELET COUNT 279 K/uL (130-400); RED BLOOD COUNT 3.05 M/uL (4.2-5.4); WHITE BLOOD COUNT 4.75 K/uL (4.8-10.8)
[2016-08-26 14:27] LABS: MEAN CORPUSCULAR HGB CONC 32.6 g/dl (32-36)
[2016-08-26 14:51] LABS: COMPLETE YES; POLYCHROMASIA 1+
--- NOTE | 2016-08-26 15:50 | Hematology/Oncology Prog Note ---
Hematology/Onc Progress Note Date of Service Aug 26, 2016. Diagnoses (1) Hypoxia with basilar infiltrates possibly from chronic aspiration Assessment & Plan: Per hospitalist team- pt currently on Zosyn and azithromycin. Pulmonology consulted- swallowing evaluation recommended, but with patient's current mental status and language barrier, has not been accomplished yet. (2) Hemolytic anemia Status: Chronic Assessment & Plan: Patient has AIHA diagnosed in 2013. At initial diagnosis, she was placed on prednisone, which was then able to start to be tapered after 2 -3 months, was on prednisone for about 15 months. Discontinued in late 2014/ early 2015. Received Rituxan back in 09/2015 for this condition and plan was to restart Rituxan this coming month. Patient developed acute hemolysis during this hospitalization with about a 2 g/ dL decrease in Hgb, elevated LDH, direct hyperbilirubinemia, positive AG, ( normal haptoglobin and retic), possibly from acute infection. New drugs started during this hospitalization are not likely contributory. Patient was started on prednisone 50 mg daily and folic acid 1 mg daily 08/23/16. 1g/dL increase in Hgb noted after prednisone initiation. Hgb has remained stable over this past week, despite having to discontinue prednisone on 08/24/[address] Whitehead has recommended to check hepatitis profile in anticipation for outpatient Rituxan if performance status improves; spoke with Dr. Parry and he has ordered this. Continue to monitor hemolysis markers, CBC, LFT daily while inpatient. Attending note: patient seen and examined and discussed with Sharon Ram PA-C Please see her notes for details family not present at this time Gen: Patient lying in bed, awake, appears alert Lungs: CTA CV: S1 S2 RRR Abd: soft Ext no edema CBC WBC 4.75 hemoglobin 8.6 hematocrit 26.4 platelet count 279,000 AIHA: anemia stable. prednisone on hold due to hallucinations and MS change. Neuro following. Patient on antibiotic for possible aspiration recommend continue monitor daily CBC Please call us as needed Medications Medications Administered Medications (Trade) Dose Ordered Sig/Mingo Route Start Time Stop Time Status Last Admin Dose Admin Sodium Chloride (Nss 1000ml) 1,000 ml @ 1,000 mls/hr Q1H ONCE IV 08/21/16 14:00 08/21/16 14:59 DC 08/21/16 14:35 1,000 MLS/HR Acetaminophen (Tylenol Tab) 650 mg NOW STAT PO 08/21/16 14:00 08/21/16 14:01 DC 08/21/16 14:38 650 MG Acetaminophen (Tylenol Tab) 650 mg Q4H PRN PO 08/21/16 18:45 09/20/16 18:44 08/23/16 09:55 650 MG Al Hydrox/Mg Hydrox/ Simethicone 15 ml 15 ml Q4H PRN PO 08/21/16 18:45 09/20/16 18:44 08/23/16 11:21 15 ML Sodium Chloride 1,000 ml @ 80 mls/hr [id number] IV 08/21/16 18:45 08/22/16 20:42 DC 08/22/16 09:17 80 MLS/HR Ceftriaxone Sodium/Dextrose (Rocephin Inj/ Dextrose Add-Malin 50ML) 50 ml @ 100 mls/hr Q24H IV 08/21/16 22:00 08/25/16 06:52 DC 08/24/16 20:36 100 MLS/HR Azithromycin (Zithromax Tab) 500 mg QAM PO 08/22/16 09:00 08/29/16 08:59 08/25/16 07:49 500 MG Lidocaine (Lidoderm Patch 5%) 1 patch QAM TD 08/22/16 20:30 09/21/16 20:29 08/25/16 07:50 1 PATCH Miscellaneous (Remove Lidoderm Patch) 1 ea DAILY@21 N/A 08/22/16 21:00 09/21/16 20:59 08/25/16 20:09 1 EA Ipratropium Burney (Atrovent 0.02% 0.5MG/2.5ML Neb) 0.5 mg Q6R INH 08/22/16 21:00 09/21/16 20:59 08/26/16 14:21 0.5 MG Levalbuterol (Xopenex 1.25MG/ 0.5ML Neb) 1.25 mg Q6R INH 08/22/16 21:00 09/21/16 20:59 08/26/16 14:21 1.25 MG Potassium Chloride (Klor-Con Tab) 40 meq TODAY@1200 ONCE PO 08/23/16 12:00 08/23/16 12:01 DC 08/23/16 15:48 40 MEQ Potassium Chloride 40 meq 40 meq TODAY@1800 ONCE PO 08/23/16 18:00 08/23/16 18:01 DC 08/23/16 20:25 40 MEQ Famotidine/ Dextrose (Pepcid IV Inj/ D5 100ml) 102 ml @ 200 mls/hr Q12@0800,2000 IV 08/23/16 20:00 09/22/16 19:59 08/26/16 10:53 200 MLS/HR Prednisone (PredniSONE TAB) 50 mg DAILY PO 08/24/16 08:00 08/24/16 19:53 DC 08/24/16 07:27 50 MG Prednisone (PredniSONE TAB) 50 mg NOW ONCE PO 08/23/16 19:30 08/23/16 19:31 DC 08/23/16 20:25 50 MG Folic Acid (Folvite Tab) 1 mg QAM PO 08/24/16 08:00 09/23/16 07:59 08/25/16 07:49 1 MG Calcium/Vitamin D 1 tab 1 tab BID PO 08/23/16 20:00 09/22/16 19:59 08/25/16 07:49 1 TAB Lorazepam/Syringe (Ativan Inj/ Syringe) 0.5 ml @ 0.5 mls/min Q6H PRN IV 08/24/16 20:00 09/23/16 19:59 08/25/16 14:19 0.5 MLS/MIN Olanzapine 2.5 mg 2.5 mg ONE ONCE PO 08/25/16 02:45 08/25/16 02:46 DC 08/25/16 03:39 2.5 MG Piperacillin Sod/ Tazobactam Sod 3.375 gm/Dextrose 115 ml @ 28.75 mls/ hr Q8H IV 08/25/16 14:00 09/01/16 13:59 08/26/16 13:34 28.75 MLS/HR Piperacillin Sod/ Tazobactam Sod/ Dextrose (Zosyn Iv/D5 100ml) 115 ml @ 230 mls/hr NOW ONCE IV 08/25/16 07:15 08/25/16 07:44 DC 08/25/16 07:44 230 MLS/HR Subjective Subjective was not able to be obtained from patient as she was only arousable to painful stimulus at time of visit. Georgian prover was not able to be obtained despite numerous attempts on farrah on iPad through [facility]. Vital Signs Vital Signs Past 12 Hours Date Time Temp Pulse Resp B/P Pulse Ox O2 Delivery O2 Flow Rate FiO2 08/26/16 14:53 36.4 73 18 150/74 95 Room Air 08/26/16 14:21 96 16 93 Room Air 08/26/16 10:57 37.0 98 18 113/84 91 Room Air 08/26/16 09:00 Room Air 08/26/16 07:46 87 16 93 Room Air Physical Exam Constitutional: General Apperance: too thin Level of Distress: NAD Psychiatric: Mental Status: lethargic Head: normocephalic, atraumatic Lungs: Auscuitation: pertinent finding (coarse breath sounds anteriorly) Cardiovascular: Heart Auscultation: RRR Abdomen: Inspection & Palpation: soft, non-distended Extremities: no edema Laboratory 08/24/16 07:49 Red Blood Count 2.91, Mean Corpuscular Volume 86.3, Mean Corpuscular Hemoglobin 28.2, Mean Corpuscular Hemoglobin Concent 32.7, Mean Platelet Volume 9.2, Neutrophils (%) (Auto) 81.0, Lymphocytes (%) (Auto) 13.9, Monocytes (%) (Auto) 4.2, Eosinophils (%) (Auto) 0.0, Basophils (%) (Auto) 0.6, Neutrophils # (Auto) 2.68, Lymphocytes # (Auto) 0.46, Monocytes # (Auto) 0.14, Eosinophils # (Auto) 0.00, Basophils # (Auto) 0.02 08/25/16 07:10 Red Blood Count 3.02, Mean Corpuscular Volume 86.1, Mean Corpuscular Hemoglobin 27.8, Mean Corpuscular Hemoglobin Concent 32.3, Mean Platelet Volume 8.7, Neutrophils (%) (Auto) 73.2, Lymphocytes (%) (Auto) 15.9, Monocytes (%) (Auto) 9.2, Eosinophils (%) (Auto) 0.2, Basophils (%) (Auto) 0.2, Neutrophils # (Auto) 4.38, Lymphocytes # (Auto) 0.95, Monocytes # (Auto) 0.55, Eosinophils # (Auto) 0.01, Basophils # (Auto) 0.01 08/26/16 13:45 Red Blood Count 3.05, Mean Corpuscular Volume 86.6, Mean Corpuscular Hemoglobin 28.2, Mean Corpuscular Hemoglobin Concent 32.6, Mean Platelet Volume 8.9, Neutrophils (%) (Auto) 74.1, Lymphocytes (%) (Auto) 13.3, Monocytes (%) (Auto) 10.3, Eosinophils (%) (Auto) 0.2, Basophils (%) (Auto) 0.4, Neutrophils # (Auto ) 3.52, Lymphocytes # (Auto) 0.63, Monocytes # (Auto) 0.49, Eosinophils # (Auto ) 0.01, Basophils # (Auto) 0.02 08/24/16 07:49 08/25/16 07:10 Test 08/23/16 20:28 08/24/16 07:49 08/24/16 18:55 08/25/16 07:10 Total Bilirubin 0.7 mg/dl (0.2-1) 0.5 mg/dl (0.2-1) 0.4 mg/dl (0.2-1) Direct Bilirubin 0.2 mg/dl (0-0.2) 0.1 mg/dl (0-0.2) 0.1 mg/dl (0-0.2) Vitamin B12 Level 1001 pg/mL (211-911) Folate 15.14 ng/mL (>5.38) White Blood Count 3.31 K/uL (4.8-10.8) 5.98 K/uL (4.8-10.8) Red Blood Count 2.91 M/uL (4.2-5.4) 3.02 M/uL (4.2-5.4) Hemoglobin 8.2 g/dL (12.0-16.0) 8.4 g/dL (12.0-16.0) Hematocrit 25.1 % (37-47) 26.0 % (37-47) Mean Corpuscular Volume 86.3 fL (80-100) 86.1 fL (80-100) Mean Corpuscular Hemoglobin 28.2 pg (25-34) 27.8 pg (25-34) Mean Corpuscular Hemoglobin Concent 32.7 g/dl (32-36) 32.3 g/dl (32-36) Platelet Count 259 K/uL (130-400) 276 K/uL (130-400) Mean Platelet Volume 9.2 fL (7.4-10.4) 8.7 fL (7.4-10.4) Neutrophils (%) (Auto) 81.0 % 73.2 % Lymphocytes (%) (Auto) 13.9 % 15.9 % Monocytes (%) (Auto) 4.2 % 9.2 % Eosinophils (%) (Auto) 0.0 % 0.2 % Basophils (%) (Auto) 0.6 % 0.2 % Neutrophils # (Auto) 2.68 K/uL (1.4-6.5) 4.38 K/uL (1.4-6.5) Lymphocytes # (Auto) 0.46 K/uL (1.2-3.4) 0.95 K/uL (1.2-3.4) Monocytes # (Auto) 0.14 K/uL (0.11-0.59) 0.55 K/uL (0.11-0.59) Eosinophils # (Auto) 0.00 K/uL (0-0.5) 0.01 K/uL (0-0.5) Basophils # (Auto) 0.02 K/uL (0-0.2) 0.01 K/uL (0-0.2) RDW Standard Deviation 46.8 fL (36.4-46.3) 46.8 fL (36.4-46.3) RDW Coefficient of Variation 14.8 % (11.5-14.5) 14.9 % (11.5-14.5) Immature Granulocyte % (Auto) 0.3 % 1.3 % Immature Granulocyte # (Auto) 0.01 K/uL (0.00-0.02) 0.08 K/uL (0.00-0.02) Red Blood Cell Morphology Unremarkable Anion Gap 10.0 mmol/L (3-11) 11.0 mmol/L (3-11) Est Creatinine Clear Calc Drug Dose 44.6 ml/min 39.2 ml/min Estimated GFR () 93.2 85.0 Estimated GFR (Non- 80.4 73.4 BUN/Creatinine Ratio 26.0 (10-20) 19.3 (10-20) Calcium Level 8.8 mg/dl (8.5-10.1) 8.9 mg/dl (8.5-10.1) Magnesium Level 2.4 mg/dl (1.8-2.4) 2.3 mg/dl (1.8-2.4) Aspartate Amino Transf (AST/SGOT) 74 U/L (15-37) 79 U/L (15-37) Alanine Aminotransferase (ALT/SGPT) 50 U/L (12-78) 59 U/L (12-78) Alkaline Phosphatase 76 U/L (45-117) 75 U/L (45-117) Total Protein 7.1 gm/dl (6.4-8.2) 7.2 gm/dl (6.4-8.2) Albumin 2.6 gm/dl (3.4-5.0) 2.9 gm/dl (3.4-5.0) Ammonia < 10.0 umol/L (11-32) Polychromasia 1+ Hypochromasia PRESENT Ovalocytes 1+ Test 08/26/16 12:31 08/26/16 13:45 08/26/16 14:30 08/26/16 15:02 Arterial Blood pH 7.52 (7.35-7.45) Arterial Blood Partial Pressure CO2 31 mmHg (35-46) Arterial Blood Partial Pressure O2 71 mm/Hg (80-95) Arterial Blood HCO3 24 mmol/L (19-24) Arterial Blood Oxygen Saturation 93.6 % (90-95) Arterial Blood Base Excess 1.5 mEq/L (-9-1.8) Arterial Blood Gas Delivery ROOM AIR Duane Test POS (POS) White Blood Count 4.75 K/uL (4.8-10.8) Red Blood Count 3.05 M/uL (4.2-5.4) Hemoglobin 8.6 g/dL (12.0-16.0) Hematocrit 26.4 % (37-47) Mean Corpuscular Volume 86.6 fL (80-100) Mean Corpuscular Hemoglobin 28.2 pg (25-34) Mean Corpuscular Hemoglobin Concent 32.6 g/dl (32-36) Platelet Count 279 K/uL (130-400) Mean Platelet Volume 8.9 fL (7.4-10.4) Neutrophils (%) (Auto) 74.1 % Lymphocytes (%) (Auto) 13.3 % Monocytes (%) (Auto) 10.3 % Eosinophils (%) (Auto) 0.2 % Basophils (%) (Auto) 0.4 % Neutrophils # (Auto) 3.52 K/uL (1.4-6.5) Lymphocytes # (Auto) 0.63 K/uL (1.2-3.4) Monocytes # (Auto) 0.49 K/uL (0.11-0.59) Eosinophils # (Auto) 0.01 K/uL (0-0.5) Basophils # (Auto) 0.02 K/uL (0-0.2) RDW Standard Deviation 48.0 fL (36.4-46.3) RDW Coefficient of Variation 15.3 % (11.5-14.5) Immature Granulocyte % (Auto) 1.7 % Immature Granulocyte # (Auto) 0.08 K/uL (0.00-0.02) Polychromasia 1+ Hepatitis B Surface Antigen NEG (NEG) Radiology CXR from 08/24/16: There is diffuse interstitial thickening which remains unchanged. Bibasilar hazy opacities have developed. This could represent developing congestive change or a pneumonia. Assessment & Plan (1) Pneumonia of both lower lobes Assessment & Plan: See diagnosis section for A/P. (2) Hemolytic anemia Status: Chronic Assessment & Plan: See diagnosis section for A/P.
--- NOTE | 2016-08-26 16:33 | PROGRESS NOTE ---
DATE: 08/26/2016 SUBJECTIVE: I saw Ms. Banks today. She was mumbling, seem to be alert, smiled at me but there were no interpreters available and her granddaughter who apparently has served as job hand yesterday was not available. She is a little restless, but not greatly so and according to my conversation with the pulmonary web development consultant, she had some "owning episodes" last night and maybe had some hypoventilation. He is considering perhaps putting her back in the unit to improve her oxygenation, but I am not sure that this decision is final. I refer the reader with Dr. Hill and Ashley Vieira PA-C's notes from last several days. I cannot tell if she is oriented. It will be very hard for me to tell if she is aphasic. She does move her extremities well. She again smiles at the examiner. I do not see any extraocular movements. There are no gross visual field deficits. I did not get her up to walk. Reflexes are very slightly brisker on the right than the left according to Dr. Hill, I could not confirm this today and toes seem to be downgoing. There apparently has a left frontal meningioma, but I do not think this has anything to do with her current issue. 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 I will check back with her tomorrow, but recommendations for B12, folate levels and thyroid function have yielded normal studies and at some point, an MRI might help in excluding embolic infarcts or a critically placed infarct but I would defer this until the patient is more cooperative MTDD
--- NOTE | 2016-08-26 19:42 | Progress Note ---
Internal Med Progress Note Date of Service: Aug 26, 2016. Provider Documentation: SUBJECTIVE: Patient is seen and examined at bedside. Could not get any history secondary to language barrier. No family member at bedside. Patient was very drowsy this morning likely secondary to benzo's given overnight. OBJECTIVE: Vital Signs-as noted below Physical Exam: General Appearance:Thin, fragile, chronically ill appearing. no apparent distress Head: normocephalic, Atraumatic Eyes: normal inspection, EOMI, PERRL Neck: supple, no JVD, Trachea midline Respiratory/Chest: Normal breath sounds. CTA. accessory muscle use Cardiovascular: S1, S2, No murmur Abdomen/GI:Soft, Non tender, Bowel sounds present, No guarding/rigidity Extremities/Musculoskelatal:normal inspection,no edema Neurologic/Psych:grossly no focal neurological deficits, + confusion Skin: normal color, warm Lab data as noted below. 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 and hypoxia POSSIBLE PNEUMONIA CT chest with bibasilar parenchymal infiltrates Initially on Rocephin (start 08/21/16) / Zithromax (start 08/22/16)>>> Now added Zosyn given possible chronic aspiration history Blood and sputum cultures: No growth to date continue supplemental oxygen, nebulizers for now Titrate off oxygen to RA as able Pulmonary on board speech and swallow eval Possible chronic aspiration ABG: suggestive of primary respiratory alkalosis Will transfer to Tele for close monitoring Aspiration precautions METABOLIC ENCEPHALOPATHY Vs Dementia Unclear etiology likely secondary to infection, dehydration, medications (on tramadol, hydroxyzine as outpatient) CT head negative for acute process continue to monitor Neurology following HEMOLYTIC ANEMIA Current Hb:8.6 today Had planned for weekly Rituxan as outpatient S/P Prednisone 1mg/kg for 2 days: discontinued secondary to hallucinations Continue folic acid Haptoglobin:100 Direct Ignacia:Positive, Peripheral smear: consistent with hemolytic anemia absolute retic low-normal LDH mildly elevated Calcium and Vit D supplements given history of osteoporosis Heme oncology on board Will check Hepatitis panel HYPOKALEMIA: Resolved Will monitor Magnesium levels wnl ELEVATED D DIMER likely due to infection CT chest negative for PE LE doppler negative for DVT BACK PAIN /FALL xray of Lumber spine with old L1 compression deformity and moderate degenerative changes lidocaine patch and Tylenol PRN for pain PT/OT: May need SNF GI Px: Famotidine LOW TSH Likely sick euthyroid syndrome normal free T4 and low T 3 Needs repeat TSH in 3-4 weeks as outpatient DVT PROPHYLAXIS SCDs Pharmacologic anticoagulation contraindicated DISPOSITION family requests: placement in jail as unable to take care at home social service consulted CODE STATUS: Full code Contact : Grand Daughter Ana Pineda Discharge planning: SNF [facility] room worker consulted Procedures: CT head 1. Interval development of mild mucosal thickening of the sinuses. Unchanging left frontal meningioma. Atrophy and chronic small vessel change unaltered from the prior exam. CT chest 1. No evidence for pulmonary embolus. 2. Small bibasilar parenchymal infiltrates superimposed upon chronic interstitial change. LE venous doppler No DVT within the right or left lower extremity. Lumbar spine xray Old compression deformity L1. Moderate degenerative disc changes throughout the entire lumbar region Vital Signs: Date Time Temp Pulse Resp B/P Pulse Ox O2 Delivery O2 Flow Rate FiO2 08/26/16 19:26 113 18 96 Nasal Cannula 2.0 08/26/16 16:28 36.9 93 18 118/55 94 08/26/16 16:27 18 96 2.0 08/26/16 14:53 36.4 73 18 150/74 95 Room Air 08/26/16 14:21 96 16 93 Room Air 08/26/16 10:57 37.0 98 18 113/84 91 Room Air 08/26/16 09:00 Room Air 08/26/16 07:46 87 16 93 Room Air 08/26/16 00:00 95 Room Air 08/25/16 19:35 37.3 92 16 143/88 Lab Results: Results Past 24 Hours Test 08/26/16 12:31 08/26/16 13:45 08/26/16 14:30 08/26/16 15:38 Range/Units Arterial Blood pH 7.52 7.35-7.45 Arterial Blood Partial Pressure CO2 31 35-46 mmHg Arterial Blood Partial Pressure O2 71 80-95 mm/Hg Arterial Blood HCO3 24 19-24 mmol/L Arterial Blood Oxygen Saturation 93.6 90-95 % Arterial Blood Base Excess 1.5 -9-1.8 mEq/L Arterial Blood Gas Delivery ROOM AIR [place]ane Test POS POS White Blood Count 4.75 4.8-10.8 K/uL Red Blood Count 3.05 4.2-5.4 M/uL Hemoglobin 8.6 12.0-16.0 g/dL Hematocrit 26.4 37-47 % Mean Corpuscular Volume 86.6 80-100 fL Mean Corpuscular Hemoglobin 28.2 25-34 pg Mean Corpuscular Hemoglobin Concent 32.6 32-36 g/dl Platelet Count 279 130-400 K/uL Mean Platelet Volume 8.9 7.4-10.4 fL Neutrophils (%) (Auto) 74.1 % Lymphocytes (%) (Auto) 13.3 % Monocytes (%) (Auto) 10.3 % Eosinophils (%) (Auto) 0.2 % Basophils (%) (Auto) 0.4 % Neutrophils # (Auto) 3.52 1.4-6.5 K/uL Lymphocytes # (Auto) 0.63 1.2-3.4 K/uL Monocytes # (Auto) 0.49 0.11-0.59 K/uL Eosinophils # (Auto) 0.01 0-0.5 K/uL Basophils # (Auto) 0.02 0-0.2 K/uL RDW Standard Deviation 48.0 36.4-46.3 fL RDW Coefficient of Variation 15.3 11.5-14.5 % Immature Granulocyte % (Auto) 1.7 % Immature Granulocyte # (Auto) 0.08 0.00-0.02 K/uL Polychromasia 1+ Hepatitis B Surface Antigen NEG NEG Hepatitis C Antibody NEG NEG Pro-B-Type Natriuretic Peptide 432 0-1800 pg/ml
[2016-08-27] VITALS (11 sets, daily range): BP systolic 96–113; BP diastolic 70–77; PULSE 87–100; TEMP 36.3–37.1; O2SAT 97–99
[2016-08-27] MEDS: IPRATROPIUM BROMIDE NEB SOLN 0.02% 2.5 ML VIAL INH SCH ×4 (02:04→18:53)
[2016-08-27] MEDS: LEVALBUTEROL 1.25MG/0.5ML NEB INH SCH ×4 (02:04→18:53)
[2016-08-27] MEDS: PIPERACILL/TAZOBAC IV 3.375 GM in DEXTROSE 5% 100ML 100 ML IV SCH ×3 (05:35→22:07)
[2016-08-27 06:49] LABS: BASO % 0.2 %; BASO ABS # 0.01 K/uL (0-0.2); EOS % 0.9 %; HEMATOCRIT 24.6 % (37-47); IG% 1.7 %; LYMPH % 9.8 %; LYMPH ABS # 0.46 K/uL (1.2-3.4); MEAN CELL VOLUME 88.2 fL (80-100); MEAN CORPUSCULAR HGB CONC 31.7 g/dl (32-36); MEAN PLATELET VOLUME 8.4 fL (7.4-10.4); MONO % 14.1 %; NEUT % 73.3 %; PLATELET COUNT 255 K/uL (130-400); RED BLOOD COUNT 2.79 M/uL (4.2-5.4); WHITE BLOOD COUNT 4.69 K/uL (4.8-10.8)
[2016-08-27 07:05] LABS: BUN/CREATININE RATIO 15.9 (10-20); CALCIUM 8.2 mg/dl (8.5-10.1); CREATININE 0.8 mg/dl (0.60-1.20); POTASSIUM 3.3 mmol/L (3.5-5.1)
[2016-08-27 07:25] LABS: COMPLETE YES
[2016-08-27] MEDS: CALCIUM 600MG + VIT D 400 IU TAB PO SCH ×2 (09:47→20:33)
[2016-08-27] MEDS: LIDODERM (LIDOCAINE) PATCH 5% TD SCH (09:49)
[2016-08-27] MEDS: AZITHROMYCIN 250 MG TAB PO SCH (09:50)
[2016-08-27] MEDS: FAMOTIDINE IV INJ 20 MG in DEXTROSE 5% 100ML 100 ML IV SCH ×2 (10:27→20:33)
[2016-08-27] MEDS ORDERED: POTASSIUM CHLORIDE 20 MEQ TABCR PO ONE (14:00)
--- NOTE | 2016-08-27 14:13 | PROGRESS NOTE ---
DATE: 08/27/2016 DATE: 08/27/2016. I saw Ms. Banks today. She was wearing her oxygen. She was a little lethargic but was easily aroused and again due to the language barrier I really could not communicate with her. She followed a few hand signal commands, would squeeze my hands, pointed to her ear where the oxygen cannula was bothering her and I moved it and she seemed to be relieved. She had no other focal findings, and was moving all extremities and symmetrically fairly well. Per laboratory studies for her dementia are really negative. Her CT scan shows degree of leukoencephalopathy and incidental meningioma but I do not think that has anything to do with her current status and it is very difficult to state definitively whether or not she has a dementia or whether what we are seeing is a mild delirium due to her hypoxemia. Dr. Hill had mentioned the possibility of doing an MRI and this would be interesting to be sure she did not have a series of embolic infarctions or critically placed infarction that could cause confusion, but there is no way that she is going to cooperate with an MRI unless we have an sub assembly team worker down in the actual scanner who can talk her through the study. I discussed this with Dr. Parry today and perhaps when the granddaughter who I believe is the only relative we had contact with comes back in we can see if she would be willing to come in and try to softball coach her grandmother through an MRI. Beyond this, however, I have no further recommendations other than observation and continued oxygenation. CRISTOPHER
--- NOTE | 2016-08-27 14:30 | Progress Note ---
Internal Med Progress Note Date of Service: Aug 27, 2016. Provider Documentation: SUBJECTIVE: Patient is seen and examined at bedside. Seems to be comfortable lying in bed. Could not obtain any history. Tried to reach patient's grand daughter-could not get in touch. OBJECTIVE: Vital Signs-as noted below Physical Exam: General Appearance:Thin, fragile, chronically ill appearing. no apparent distress Head: normocephalic, Atraumatic Eyes: normal inspection, EOMI, PERRL Neck: supple, no JVD, Trachea midline Respiratory/Chest: Normal breath sounds. CTA. accessory muscle use Cardiovascular: S1, S2, No murmur Abdomen/GI:Soft, Non tender, Bowel sounds present, No guarding/rigidity Extremities/Musculoskelatal:normal inspection,no edema Neurologic/Psych:grossly no focal neurological deficits, + confusion Skin: normal color, warm Lab data as noted below. 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 and hypoxia POSSIBLE PNEUMONIA CT chest with bibasilar parenchymal infiltrates Initially on Rocephin (start 08/21/16) / Zithromax (start 08/22/16)>>> Now added Zosyn given possible chronic aspiration history Blood and sputum cultures: No growth to date continue supplemental oxygen, nebulizers for now Titrate off oxygen to RA as able Pulmonary on board speech and swallow eval Possible chronic aspiration ABG: suggestive of primary respiratory alkalosis Continue monitoring in Telemetry unit Aspiration precautions METABOLIC ENCEPHALOPATHY Vs Dementia Unclear etiology likely secondary to infection, dehydration, medications (on tramadol, hydroxyzine as outpatient) CT head negative for acute process continue to monitor Neurology following Could benefit from getting MRI brain when more cooperative and family available HEMOLYTIC ANEMIA Current Hb:7.8 today Had planned for weekly Rituxan as outpatient S/P Prednisone 1mg/kg for 2 days: discontinued secondary to hallucinations Continue folic acid Haptoglobin:100 Direct Ignacia:Positive, Peripheral smear: consistent with hemolytic anemia absolute retic low-normal LDH mildly elevated Calcium and Vit D supplements given history of osteoporosis Heme oncology on board Hepatitis panel pending HYPOKALEMIA: Will replace and monitor Magnesium levels wnl ELEVATED D DIMER likely due to infection CT chest negative for PE LE doppler negative for DVT BACK PAIN /FALL xray of Lumber spine with old L1 compression deformity and moderate degenerative changes lidocaine patch and Tylenol PRN for pain PT/OT: May need SNF GI Px: Famotidine LOW TSH Likely sick euthyroid syndrome normal free T4 and low T 3 Needs repeat TSH in 3-4 weeks as outpatient DVT PROPHYLAXIS SCDs Pharmacologic anticoagulation contraindicated DISPOSITION family requests: placement in snf as unable to take care at home social service consulted CODE STATUS: Full code Contact : Grand Daughter Ana Pineda Discharge planning: SNF day care worker consulted Procedures: CT head 1. Interval development of mild mucosal thickening of the sinuses. Unchanging left frontal meningioma. Atrophy and chronic small vessel change unaltered from the prior exam. CT chest 1. No evidence for pulmonary embolus. 2. Small bibasilar parenchymal infiltrates superimposed upon chronic interstitial change. LE venous doppler No DVT within the right or left lower extremity. Lumbar spine xray Old compression deformity L1. Moderate degenerative disc changes throughout the entire lumbar region Vital Signs: Date Time Temp Pulse Resp B/P Pulse Ox O2 Delivery O2 Flow Rate FiO2 08/27/16 14:01 92 16 98 Nasal Cannula 2.0 08/27/16 12:00 Nasal Cannula 2.0 08/27/16 11:20 36.8 95 16 109/72 97 Room Air 08/27/16 08:00 98 Nasal Cannula 2.0 08/27/16 07:20 87 16 98 Nasal Cannula 2.0 08/27/16 07:14 36.9 88 16 110/75 99 Nasal Cannula 2.0 08/27/16 05:23 36.3 93 18 110/77 97 Nasal Cannula 2.0 08/27/16 04:14 Nasal Cannula 2.0 08/27/16 02:04 90 16 98 Nasal Cannula 2.0 08/27/16 00:02 Nasal Cannula 2.0 08/26/16 23:01 37.6 97 16 124/83 100 Nasal Cannula 2.0 08/26/16 20:06 98 Nasal Cannula 2.0 08/26/16 19:34 36.9 114 20 131/90 98 Room Air 08/26/16 19:26 113 18 96 Nasal Cannula 2.0 08/26/16 16:28 36.9 93 18 118/55 94 08/26/16 16:27 18 96 2.0 08/26/16 14:53 36.4 73 18 150/74 95 Room Air Lab Results: Results Past 24 Hours Test 08/26/16 14:30 08/26/16 15:38 08/27/16 06:22 08/27/16 06:29 Range/Units Hepatitis B Surface Antigen NEG NEG Hepatitis C Antibody NEG NEG Pro-B-Type Natriuretic Peptide 432 0-1800 pg/ml Sodium Level 143 136-145 mmol/L Potassium Level 3.3 3.5-5.1 mmol/L Chloride Level 107 98-107 mmol/L Carbon Dioxide Level 27 21-32 mmol/L Anion Gap 9.0 3-11 mmol/L Blood Urea Nitrogen 13 7-18 mg/dl Creatinine 0.80 0.60-1.20 mg/dl Est Creatinine Clear Calc Drug Dose 36.3 ml/min Estimated GFR () 77.4 Estimated GFR (Non- 66.8 BUN/Creatinine Ratio 15.9 10-20 Random Glucose 93 70-99 mg/dl Calcium Level 8.2 8.5-10.1 mg/dl White Blood Count 4.69 4.8-10.8 K/uL Red Blood Count 2.79 4.2-5.4 M/uL Hemoglobin 7.8 12.0-16.0 g/dL Hematocrit 24.6 37-47 % Mean Corpuscular Volume 88.2 80-100 fL Mean Corpuscular Hemoglobin 28.0 25-34 pg Mean Corpuscular Hemoglobin Concent 31.7 32-36 g/dl Platelet Count 255 130-400 K/uL Mean Platelet Volume 8.4 7.4-10.4 fL Neutrophils (%) (Auto) 73.3 % Lymphocytes (%) (Auto) 9.8 % Monocytes (%) (Auto) 14.1 % Eosinophils (%) (Auto) 0.9 % Basophils (%) (Auto) 0.2 % Neutrophils # (Auto) 3.44 1.4-6.5 K/uL Lymphocytes # (Auto) 0.46 1.2-3.4 K/uL Monocytes # (Auto) 0.66 0.11-0.59 K/uL Eosinophils # (Auto) 0.04 0-0.5 K/uL Basophils # (Auto) 0.01 0-0.2 K/uL RDW Standard Deviation 49.9 36.4-46.3 fL RDW Coefficient of Variation 15.4 11.5-14.5 % Immature Granulocyte % (Auto) 1.7 % Immature Granulocyte # (Auto) 0.08 0.00-0.02 K/uL Red Blood Cell Morphology Unremarkable
--- NOTE | 2016-08-27 17:34 | Pulmonology Progress Note ---
Pulmonary Progress Note Date of Service Aug 27, 2016. Attending Colton Rodrigez Subjective Patient is easily arousable today and interactive and allowing me to perform physical examination. There are no signs of accessory muscle use or shortness of breath currently on 2 L nasal cannula. Objective Patient showing no signs of increased work of breathing at this time: Nursing staff also notes no signs of respiratory insufficiency Vital signs: Reviewed SaO2: 91-100%(room air-2 Lnc) Cumulative I/O: 3.8 L positive Respiratory: Clear to auscultation bilaterally anterior, minimal rhonchi at the bases bilaterally Cardiac: S1-S2 regular rate and rhythm distant heart sounds AB. on room air--consistent with hyperventilation secondary to hypoxia CT angiogram 08/21/16: No signs of pulmonary embolism/bibasilar infiltrative process Chest x-ray 08/24/2016: Continue diffuse interstitial bibasilar opacifications no acute changes Microbiology reviewed: No growth to date studies completed Assessment & Plan 85-year-old female admitted with altered mental status and acute/chronic hemolytic anemia discovered to be hypoxic: #1 Hypoxemia: ABG on room air 7.52/. Patient is notably hypoxic consistent with SaO2 monitoring. At this time I believe it is most likely chronic in nature possibly from chronic aspiration and underlying pulmonary disorder such as COPD from unknown secondhand exposure. --Workup is not warranted as the patient is unable to perform pulmonary function test for full definitive evaluation. --She will most likely require chronic oxygen support 2 L continuously. Performing 2 step prior to discharge for evaluation of oxygen needs will help discharge coordination/planning. #[address]: At this time I believe the bilateral lower lobe changes most consistent with aspiration. Patient should be monitored and continued on aspiration precautions. #3 follow-up: Primary team will sign off at this time please contact us if new issues arise. Data Medications: Current Inpatient Medications Medications (Trade) Dose Ordered Sig/[place] Route Start Time Stop Time Status Last Admin Dose Admin Acetaminophen (Tylenol Tab) 650 mg Q4H PRN PO 08/21/16 18:45 09/20/16 18:44 08/23/16 09:55 650 MG Al Hydrox/Mg Hydrox/Simethicone (Maalox Max Susp) 15 ml Q4H PRN PO 08/21/16 18:45 09/20/16 18:44 08/23/16 11:21 15 ML Magnesium Hydroxide (Milk Of Magnesia Susp) 30 ml Q6H PRN PO 08/21/16 18:45 09/20/16 18:44 Polyethylene (Miralax Powder Packet) 17 gm DAILY PRN PO 08/21/16 19:00 09/20/16 18:59 Ondansetron HCl (Zofran Inj) 4 mg Q6H PRN IV 08/21/16 18:45 09/20/16 18:44 Azithromycin (Zithromax Tab) 500 mg QAM PO 08/22/16 09:00 08/29/16 08:59 08/27/16 09:50 500 MG Lidocaine (Lidoderm Patch 5%) 1 patch QAM TD 08/22/16 20:30 09/21/16 20:29 08/27/16 09:49 1 PATCH Miscellaneous (Remove Lidoderm Patch) 1 ea DAILY@21 N/A 08/22/16 21:00 09/21/16 20:59 08/25/16 20:09 1 EA Ipratropium [place] (Atrovent 0.02% 0.5MG/2.5ML Neb) 0.5 mg Q6R INH 08/22/16 21:00 09/21/16 20:59 08/27/16 14:00 0.5 MG Levalbuterol (Xopenex 1.25MG/ 0.5ML Neb) 1.25 mg Q6R INH 08/22/16 21:00 09/21/16 20:59 08/27/16 14:00 1.25 MG Albuterol Sulfate 2.5 mg 2.5 mg Q2R PRN INH 08/23/16 11:30 09/22/16 11:29 Famotidine/ Dextrose (Pepcid IV Inj/ D5 100ml) 102 ml @ 200 mls/hr Q12@0800,2000 IV 08/23/16 20:00 09/22/16 19:59 08/27/16 10:27 200 MLS/HR Folic Acid (Folvite Tab) 1 mg QAM PO 08/24/16 08:00 09/23/16 07:59 08/27/16 09:48 1 MG Calcium/Vitamin D 1 tab 1 tab BID PO 08/23/16 20:00 09/22/16 19:59 08/27/16 09:47 1 TAB Lorazepam 0.25 mg/ Syringe 0.5 ml @ 0.5 mls/min Q6H PRN IV 08/24/16 20:00 09/23/16 19:59 08/25/16 14:19 0.5 MLS/MIN Piperacillin Sod/ Tazobactam Sod/ Dextrose (Zosyn Iv/D5 100ml) 115 ml @ 28.75 mls/ hr Q8H IV 08/25/16 14:00 09/01/16 13:59 08/27/16 15:55 28.75 MLS/HR Piperacillin Sod/ Tazobactam Sod (Consult) 1 ea UD PRN N/A 08/25/16 07:00 09/24/16 06:59 I & O: 24-Hour Column 08/27/16 08:00 Intake Total 553 ml Output Total 0 ml Balance 553 ml Vital Signs: Date Time Temp Pulse Resp B/P Pulse Ox O2 Delivery O2 Flow Rate FiO2 08/27/16 16:00 Nasal Cannula 2.0 08/27/16 15:02 37.1 95 16 113/75 97 Nasal Cannula 2.0 08/27/16 14:01 92 16 98 Nasal Cannula 2.0 08/27/16 12:00 Nasal Cannula 2.0 08/27/16 11:20 36.8 95 16 109/72 97 Room Air 08/27/16 08:00 98 Nasal Cannula 2.0 08/27/16 07:20 87 16 98 Nasal Cannula 2.0 08/27/16 07:14 36.9 88 16 110/75 99 Nasal Cannula 2.0 08/27/16 05:23 36.3 93 18 110/77 97 Nasal Cannula 2.0 08/27/16 04:14 Nasal Cannula 2.0 08/27/16 02:04 90 16 98 Nasal Cannula 2.0 08/27/16 00:02 Nasal Cannula 2.0 08/26/16 23:01 37.6 97 16 124/83 100 Nasal Cannula 2.0 08/26/16 20:06 98 Nasal Cannula 2.0 08/26/16 19:34 36.9 114 20 131/90 98 Room Air 08/26/16 19:26 113 18 96 Nasal Cannula 2.0 Laboratory Results: Last 24 Hours Test 08/27/16 06:22 08/27/16 06:29 Sodium Level 143 mmol/L Potassium Level 3.3 mmol/L Chloride Level 107 mmol/L Carbon Dioxide Level 27 mmol/L Anion Gap 9.0 mmol/L Blood Urea Nitrogen 13 mg/dl Creatinine 0.80 mg/dl Est Creatinine Clear Calc Drug Dose 36.3 ml/min Estimated GFR () 77.4 Estimated GFR (Non- 66.8 BUN/Creatinine Ratio 15.9 Random Glucose 93 mg/dl Calcium Level 8.2 mg/dl White Blood Count 4.69 K/uL Red Blood Count 2.79 M/uL Hemoglobin 7.8 g/dL Hematocrit 24.6 % Mean Corpuscular Volume 88.2 fL Mean Corpuscular Hemoglobin 28.0 pg Mean Corpuscular Hemoglobin Concent 31.7 g/dl Platelet Count 255 K/uL Mean Platelet Volume 8.4 fL Neutrophils (%) (Auto) 73.3 % Lymphocytes (%) (Auto) 9.8 % Monocytes (%) (Auto) 14.1 % Eosinophils (%) (Auto) 0.9 % Basophils (%) (Auto) 0.2 % Neutrophils # (Auto) 3.44 K/uL Lymphocytes # (Auto) 0.46 K/uL Monocytes # (Auto) 0.66 K/uL Eosinophils # (Auto) 0.04 K/uL Basophils # (Auto) 0.01 K/uL RDW Standard Deviation 49.9 fL RDW Coefficient of Variation 15.4 % Immature Granulocyte % (Auto) 1.7 % Immature Granulocyte # (Auto) 0.08 K/uL Red Blood Cell Morphology Unremarkable
[2016-08-28] VITALS (10 sets, daily range): BP systolic 106–124; BP diastolic 65–81; PULSE 78–113; TEMP 36.5–37; O2SAT 92–100
[2016-08-28] MEDS: LEVALBUTEROL 1.25MG/0.5ML NEB INH SCH ×4 (02:34→18:57)
[2016-08-28] MEDS: IPRATROPIUM BROMIDE NEB SOLN 0.02% 2.5 ML VIAL INH SCH ×4 (02:34→18:57)
[2016-08-28] MEDS: PIPERACILL/TAZOBAC IV 3.375 GM in DEXTROSE 5% 100ML 100 ML IV SCH (05:48)
[2016-08-28 06:47] LABS: BASO % 0.2 %; BASO ABS # 0.01 K/uL (0-0.2); EOS % 2.3 %; HEMATOCRIT 25.8 % (37-47); IG% 2.3 %; LYMPH ABS # 0.66 K/uL (1.2-3.4); MEAN CELL VOLUME 89.3 fL (80-100); MEAN CORPUSCULAR HEMOGLOBIN 27.7 pg (25-34); MEAN PLATELET VOLUME 8.9 fL (7.4-10.4); MONO % 8.9 %; NEUT % 71.3 %; PLATELET COUNT 282 K/uL (130-400); RED BLOOD COUNT 2.89 M/uL (4.2-5.4); WHITE BLOOD COUNT 4.39 K/uL (4.8-10.8)
[2016-08-28 07:23] LABS: BUN/CREATININE RATIO 23.4 (10-20); CALCIUM 8.6 mg/dl (8.5-10.1); CREATININE 0.7 mg/dl (0.60-1.20); POTASSIUM 3.9 mmol/L (3.5-5.1)
[2016-08-28 07:27] LABS: COMPLETE YES; HYPOCHROMIA PRESENT; OVALOCYTES 1+; POLYCHROMASIA 1+
[2016-08-28] MEDS: LIDODERM (LIDOCAINE) PATCH 5% TD SCH (08:21)
[2016-08-28] MEDS: FAMOTIDINE IV INJ 20 MG in DEXTROSE 5% 100ML 100 ML IV SCH ×2 (08:21→20:00)
[2016-08-28] MEDS: AZITHROMYCIN 250 MG TAB PO SCH (08:22)
[2016-08-28] MEDS: CALCIUM 600MG + VIT D 400 IU TAB PO SCH ×2 (08:23→21:59)
--- NOTE | 2016-08-28 11:56 | PROGRESS NOTE ---
DATE: 08/28/2016 SUBJECTIVE: MS. JOSE looks actually better today. She is smiling. She wakes readily, she shakes my hand, she tries communicate with sign language and expresses frustration that we do not seem to be able to speak. I do not see any focal neurologic findings at all and my suspicions are in light of her social graces today that she is close to her baseline. I will be curious to see what her family has to say. I do not believe there is an urgency getting an MRI in light of her improvement and suspect this was a multifactorial delirium primarily driven by some hypoxemia. I will check back with her tomorrow, but for now I do not think neurology has a lot more to offer. CRISTOPHER
--- NOTE | 2016-08-28 14:25 | Progress Note ---
Internal Med Progress Note Date of Service: Aug 28, 2016. Provider Documentation: SUBJECTIVE: Patient is seen and examined at bedside. Intermittently confused per family. She feels better today. offers no complaints otherwise. OBJECTIVE: Vital Signs-as noted below Physical Exam: General Appearance:Thin, fragile, chronically ill appearing. no apparent distress Head: normocephalic, Atraumatic Eyes: normal inspection, EOMI, PERRL Neck: supple, no JVD, Trachea midline Respiratory/Chest: Normal breath sounds. CTA. accessory muscle use Cardiovascular: S1, S2, No murmur Abdomen/GI:Soft, Non tender, Bowel sounds present, No guarding/rigidity Extremities/Musculoskelatal:normal inspection,no edema Neurologic/Psych:grossly no focal neurological deficits, + confusion Skin: normal color, warm Lab data as noted below. 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 LIKELY METABOLIC ENCEPHALOPATHY: ? DEMENTIA Unclear etiology likely secondary to infection, dehydration, medications (on tramadol, hydroxyzine as outpatient) CT head negative for acute process continue to monitor Appreciate Neurology input Could consider MRI brain if necessary HEMOLYTIC ANEMIA Current Hb:8.0 today Had planned for weekly Rituxan as outpatient S/P Prednisone 1mg/kg for 2 days: discontinued secondary to hallucinations Continue folic acid Haptoglobin:100 Direct Ignacia:Positive, Peripheral smear: consistent with hemolytic anemia absolute retic low-normal LDH mildly elevated Calcium and Vit D supplements given history of osteoporosis Heme oncology on board Hepatitis panel pending HYPOKALEMIA: Resolved ELEVATED D DIMER likely due to infection CT chest negative for PE LE doppler negative for DVT BACK PAIN /FALL xray of Lumber spine with old L1 compression deformity and moderate degenerative changes lidocaine patch and Tylenol PRN for pain PT/OT: May need SNF GI Px: Famotidine LOW TSH Likely sick euthyroid syndrome normal free T4 and low T 3 Needs repeat TSH in 3-4 weeks as outpatient DVT PROPHYLAXIS SCDs Pharmacologic anticoagulation contraindicated DISPOSITION family requests: placement in snf as unable to take care at home social service consulted CODE STATUS: Full code Contact : Grand Daughter Ana Pineda Discharge planning: SNF layup worker consulted Procedures: CT head 1. Interval development of mild mucosal thickening of the sinuses. Unchanging left frontal meningioma. Atrophy and chronic small vessel change unaltered from the prior exam. CT chest 1. No evidence for pulmonary embolus. 2. Small bibasilar parenchymal infiltrates superimposed upon chronic interstitial change. LE venous doppler No DVT within the right or left lower extremity. Lumbar spine xray Old compression deformity L1. Moderate degenerative disc changes throughout the entire lumbar region Vital Signs: Date Time Temp Pulse Resp B/P Pulse Ox O2 Delivery O2 Flow Rate FiO2 08/28/16 14:06 95 16 92 Room Air 08/28/16 11:49 36.7 98 18 106/76 94 Room Air 08/28/16 08:00 Room Air 08/28/16 07:32 36.5 85 22 117/78 98 Nasal Cannula 2.0 08/28/16 07:17 78 16 98 Nasal Cannula 2.0 08/28/16 04:20 Nasal Cannula 2.0 08/28/16 03:30 36.6 92 18 110/65 98 Nasal Cannula 2.0 08/28/16 02:34 94 16 98 Nasal Cannula 2.0 08/28/16 00:23 Nasal Cannula 2.0 08/27/16 23:02 37.0 97 16 96/70 97 08/27/16 20:03 Nasal Cannula 2.0 08/27/16 18:57 100 16 98 Nasal Cannula 2.0 08/27/16 18:52 36.4 100 18 105/74 98 Nasal Cannula 2.0 08/27/16 16:00 Nasal Cannula 2.0 08/27/16 15:02 37.1 95 16 113/75 97 Nasal Cannula 2.0 Lab Results: Results Past 24 Hours Test 08/28/16 06:15 Range/Units White Blood Count 4.39 4.8-10.8 K/uL Red Blood Count 2.89 4.2-5.4 M/uL Hemoglobin 8.0 12.0-16.0 g/dL Hematocrit 25.8 37-47 % Mean Corpuscular Volume 89.3 80-100 fL Mean Corpuscular Hemoglobin 27.7 25-34 pg Mean Corpuscular Hemoglobin Concent 31.0 32-36 g/dl Platelet Count 282 130-400 K/uL Mean Platelet Volume 8.9 7.4-10.4 fL Neutrophils (%) (Auto) 71.3 % Lymphocytes (%) (Auto) 15.0 % Monocytes (%) (Auto) 8.9 % Eosinophils (%) (Auto) 2.3 % Basophils (%) (Auto) 0.2 % Neutrophils # (Auto) 3.13 1.4-6.5 K/uL Lymphocytes # (Auto) 0.66 1.2-3.4 K/uL Monocytes # (Auto) 0.39 0.11-0.59 K/uL Eosinophils # (Auto) 0.10 0-0.5 K/uL Basophils # (Auto) 0.01 0-0.2 K/uL RDW Standard Deviation 51.2 36.4-46.3 fL RDW Coefficient of Variation 15.8 11.5-14.5 % Immature Granulocyte % (Auto) 2.3 % Immature Granulocyte # (Auto) 0.10 0.00-0.02 K/uL Polychromasia 1+ Hypochromasia PRESENT Ovalocytes 1+ Sodium Level 141 136-145 mmol/L Potassium Level 3.9 3.5-5.1 mmol/L Chloride Level 106 98-107 mmol/L Carbon Dioxide Level 25 21-32 mmol/L Anion Gap 10.0 3-11 mmol/L Blood Urea Nitrogen 16 7-18 mg/dl Creatinine 0.70 0.60-1.20 mg/dl Est Creatinine Clear Calc Drug Dose 41.4 ml/min Estimated GFR () 90.9 Estimated GFR (Non- 78.5 BUN/Creatinine Ratio 23.4 10-20 Random Glucose 96 70-99 mg/dl Calcium Level 8.6 8.5-10.1 mg/dl
[2016-08-29] VITALS (8 sets, daily range): BP systolic 91–102; BP diastolic 62–72; PULSE 88–102; TEMP 36.4–37; O2SAT 93–99
[2016-08-29] MEDS: LEVALBUTEROL 1.25MG/0.5ML NEB INH SCH ×2 (01:50→06:55)
[2016-08-29] MEDS: IPRATROPIUM BROMIDE NEB SOLN 0.02% 2.5 ML VIAL INH SCH ×2 (01:50→06:55)
[2016-08-29 07:32] LABS: BASO % 0.4 %; BASO ABS # 0.02 K/uL (0-0.2); EOS % 3.2 %; HEMATOCRIT 25.1 % (37-47); IG% 1.9 %; LYMPH % 15.9 %; LYMPH ABS # 0.74 K/uL (1.2-3.4); MEAN CELL VOLUME 87.5 fL (80-100); MEAN CORPUSCULAR HEMOGLOBIN 28.2 pg (25-34); MEAN CORPUSCULAR HGB CONC 32.3 g/dl (32-36); MEAN PLATELET VOLUME 8.5 fL (7.4-10.4); MONO % 11.6 %; PLATELET COUNT 270 K/uL (130-400); RED BLOOD COUNT 2.87 M/uL (4.2-5.4); WHITE BLOOD COUNT 4.64 K/uL (4.8-10.8)
[2016-08-29 08:11] LABS: COMPLETE YES; OVALOCYTES 1+
[2016-08-29] MEDS: FAMOTIDINE IV INJ 20 MG in DEXTROSE 5% 100ML 100 ML IV SCH ×2 (08:25→20:28)
[2016-08-29] MEDS: LIDODERM (LIDOCAINE) PATCH 5% TD SCH (08:25)
[2016-08-29] MEDS: CALCIUM 600MG + VIT D 400 IU TAB PO SCH ×2 (08:25→20:30)
[2016-08-29] MEDS ORDERED: IPRATROPIUM BROMIDE NEB SOLN 0.02% 2.5 ML VIAL INH PRN (15:00)
--- NOTE | 2016-08-29 16:21 | Progress Note ---
Internal Med Progress Note Date of Service: Aug 29, 2016. Provider Documentation: SUBJECTIVE: Patient is seen and examined at bedside. No family at bedside. She seems to be comfortable. Couldn't understand what she was talking about. Doesn't seem to be confused. Alert, awake. OBJECTIVE: Vital Signs-as noted below Physical Exam: General Appearance:Thin, fragile, chronically ill appearing. no apparent distress Head: normocephalic, Atraumatic Eyes: normal inspection, EOMI, PERRL Neck: supple, no JVD, Trachea midline Respiratory/Chest: Normal breath sounds. CTA. accessory muscle use Cardiovascular: S1, S2, No murmur Abdomen/GI:Soft, Non tender, Bowel sounds present, No guarding/rigidity Extremities/Musculoskelatal:normal inspection,no edema Neurologic/Psych:grossly no focal neurological deficits, + confusion Skin: normal color, warm Lab data as noted below. 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 LIKELY METABOLIC ENCEPHALOPATHY: ? DEMENTIA Unclear etiology likely secondary to infection, dehydration, medications (on tramadol, hydroxyzine as outpatient) CT head negative for acute process continue to monitor Appreciate Neurology input Could consider MRI brain if necessary HEMOLYTIC ANEMIA Current Hb:8.1 today Had planned for weekly Rituxan as outpatient S/P Prednisone 1mg/kg for 2 days: discontinued secondary to hallucinations Continue folic acid Haptoglobin:100 Direct Ignacia:Positive, Peripheral smear: consistent with hemolytic anemia absolute retic low-normal LDH mildly elevated Calcium and Vit D supplements given history of osteoporosis Heme oncology on board Hepatitis panel: Negative HYPOKALEMIA: Resolved ELEVATED D DIMER likely due to infection CT chest negative for PE LE doppler negative for DVT BACK PAIN /FALL xray of Lumber spine with old L1 compression deformity and moderate degenerative changes lidocaine patch and Tylenol PRN for pain PT/OT: May need SNF GI Px: Famotidine LOW TSH Likely sick euthyroid syndrome normal free T4 and low T 3 Needs repeat TSH in 3-4 weeks as outpatient DVT PROPHYLAXIS SCDs Pharmacologic anticoagulation contraindicated DISPOSITION family requests: placement in group home as unable to take care at home social service consulted CODE STATUS: Full code Contact : Grand Daughter Ana Pineda Discharge planning: SNF laceworker consulted Procedures: CT head 1. Interval development of mild mucosal thickening of the sinuses. Unchanging left frontal meningioma. Atrophy and chronic small vessel change unaltered from the prior exam. CT chest 1. No evidence for pulmonary embolus. 2. Small bibasilar parenchymal infiltrates superimposed upon chronic interstitial change. LE venous doppler No DVT within the right or left lower extremity. Lumbar spine xray Old compression deformity L1. Moderate degenerative disc changes throughout the entire lumbar region Vital Signs: Date Time Temp Pulse Resp B/P Pulse Ox O2 Delivery O2 Flow Rate FiO2 08/29/16 16:06 36.4 98 19 101/72 93 Room Air 08/29/16 14:12 100 16 95 Room Air 08/29/16 14:03 89 16 95 Nasal Cannula 2.0 08/29/16 12:00 Room Air 08/29/16 11:47 36.4 99 16 91/62 99 Room Air 08/29/16 07:45 Room Air 08/29/16 07:23 36.5 88 16 102/68 99 2.0 08/29/16 04:48 37.0 95 18 91/62 97 Nasal Cannula 2.0 08/29/16 04:00 Nasal Cannula 2.0 08/29/16 01:50 88 16 97 Nasal Cannula 2.0 08/29/16 00:00 Nasal Cannula 2.0 08/28/16 23:09 36.7 97 18 107/72 100 Nasal Cannula 2.0 08/28/16 22:00 Nasal Cannula 2.0 08/28/16 20:03 37.0 113 18 110/65 98 Room Air 08/28/16 20:00 Nasal Cannula 2.0 08/28/16 18:57 92 16 94 Room Air Lab Results: Results Past 24 Hours Test 08/29/16 07:12 Range/Units White Blood Count 4.64 4.8-10.8 K/uL Red Blood Count 2.87 4.2-5.4 M/uL Hemoglobin 8.1 12.0-16.0 g/dL Hematocrit 25.1 37-47 % Mean Corpuscular Volume 87.5 80-100 fL Mean Corpuscular Hemoglobin 28.2 25-34 pg Mean Corpuscular Hemoglobin Concent 32.3 32-36 g/dl Platelet Count 270 130-400 K/uL Mean Platelet Volume 8.5 7.4-10.4 fL Neutrophils (%) (Auto) 67.0 % Lymphocytes (%) (Auto) 15.9 % Monocytes (%) (Auto) 11.6 % Eosinophils (%) (Auto) 3.2 % Basophils (%) (Auto) 0.4 % Neutrophils # (Auto) 3.10 1.4-6.5 K/uL Lymphocytes # (Auto) 0.74 1.2-3.4 K/uL Monocytes # (Auto) 0.54 0.11-0.59 K/uL Eosinophils # (Auto) 0.15 0-0.5 K/uL Basophils # (Auto) 0.02 0-0.2 K/uL RDW Standard Deviation 50.3 36.4-46.3 fL RDW Coefficient of Variation 15.7 11.5-14.5 % Immature Granulocyte % (Auto) 1.9 % Immature Granulocyte # (Auto) 0.09 0.00-0.02 K/uL Ovalocytes 1+
--- NOTE | 2016-08-29 16:23 | Hematology/Oncology Prog Note ---
Hematology/Onc Progress Note Date of Service Aug 29, 2016. Diagnoses (1) Hypoxia with basilar infiltrates possibly from chronic aspiration Assessment & Plan: Per hospitalist team- pt currently on Zosyn and azithromycin. Pulmonology consulted- swallowing evaluation recommended, but with patient's current mental status and language barrier, has not been accomplished yet. 95% on room air today. (2) Hemolytic anemia Status: Chronic Assessment & Plan: Patient has AIHA diagnosed in 2013. At initial diagnosis, she was placed on prednisone, which was then able to start to be tapered after 2 -3 months, was on prednisone for about 15 months. Discontinued in late 2014/ early 2015. Received Rituxan back in 09/2015 for this condition and plan was to restart Rituxan this coming month. Patient developed acute hemolysis during this hospitalization with about a 2 g/ dL decrease in Hgb, elevated LDH, direct hyperbilirubinemia, positive AG, ( normal haptoglobin and retic), possibly from acute infection. New drugs started during this hospitalization are not likely contributory. Patient was started on prednisone 50 mg daily and folic acid 1 mg daily . 1g/dL increase in Hgb noted after prednisone initiation. Hgb has remained stable since the discontinuation of prednisone on 08/24/16 due to hallucinations- Hgb 8.1 g/dL today. Dr. Whitehead has recommended to check hepatitis profile in anticipation for outpatient Rituxan- hepatitis testing was negative. Continue to monitor CBC, LFT daily while inpatient. Spoke with on 08/29/16 re: patient- she recommends to recheck haptoglobin , LDH and retic count for tomorrow to see if hemolysis still active; considering placing patient on reduced dose prednisone, 20-25 mg, based upon hemolysis labs. Medications Medications Administered Medications (Trade) Dose Ordered Sig/Mingo Route Start Time Stop Time Status Last Admin Dose Admin Sodium Chloride (Nss 1000ml) 1,000 ml @ 1,000 mls/hr Q1H ONCE IV 08/21/16 14:00 08/21/16 14:59 DC 08/21/16 14:35 1,000 MLS/HR Acetaminophen (Tylenol Tab) 650 mg NOW STAT PO 08/21/16 14:00 08/21/16 14:01 DC 08/21/16 14:38 650 MG Acetaminophen (Tylenol Tab) 650 mg Q4H PRN PO 08/21/16 18:45 09/20/16 18:44 08/23/16 09:55 650 MG Al Hydrox/Mg Hydrox/ Simethicone 15 ml 15 ml Q4H PRN PO 08/21/16 18:45 09/20/16 18:44 08/23/16 11:21 15 ML Sodium Chloride 1,000 ml @ 80 mls/hr [id number] IV 08/21/16 18:45 08/22/16 20:42 DC 08/22/16 09:17 80 MLS/HR Ceftriaxone Sodium/Dextrose (Rocephin Inj/ Dextrose Add-[place] 50ML) 50 ml @ 100 mls/hr Q24H IV 08/21/16 22:00 08/25/16 06:52 DC 08/24/16 20:36 100 MLS/HR Azithromycin (Zithromax Tab) 500 mg QAM PO 08/22/16 09:00 08/28/16 14:03 DC 08/28/16 08:22 500 MG Lidocaine (Lidoderm Patch 5%) 1 patch QAM TD 08/22/16 20:30 09/21/16 20:29 08/29/16 08:25 1 PATCH Miscellaneous (Remove Lidoderm Patch) 1 ea DAILY@21 N/A 08/22/16 21:00 09/21/16 20:59 08/28/16 21:59 1 EA Ipratropium [place] (Atrovent 0.02% 0.5MG/2.5ML Neb) 0.5 mg Q6R INH 08/22/16 21:00 08/29/16 14:06 DC 08/29/16 06:55 0.5 MG Levalbuterol (Xopenex 1.25MG/ 0.5ML Neb) 1.25 mg Q6R INH 08/22/16 21:00 08/29/16 14:05 DC 08/29/16 06:55 1.25 MG Potassium Chloride (Klor-Con Tab) 40 meq TODAY@1200 ONCE PO 08/23/16 12:00 08/23/16 12:01 DC 08/23/16 15:48 40 MEQ Potassium Chloride 40 meq 40 meq TODAY@1800 ONCE PO 08/23/16 18:00 08/23/16 18:01 DC 08/23/16 20:25 40 MEQ Famotidine/ Dextrose (Pepcid IV Inj/ D5 100ml) 102 ml @ 200 mls/hr Q12@0800,2000 IV 08/23/16 20:00 09/22/16 19:59 08/29/16 08:25 200 MLS/HR Prednisone (PredniSONE TAB) 50 mg DAILY PO 08/24/16 08:00 08/24/16 19:53 DC 08/24/16 07:27 50 MG Prednisone (PredniSONE TAB) 50 mg NOW ONCE PO 08/23/16 19:30 08/23/16 19:31 DC 08/23/16 20:25 50 MG Folic Acid (Folvite Tab) 1 mg QAM PO 08/24/16 08:00 09/23/16 07:59 08/29/16 08:25 1 MG Calcium/Vitamin D 1 tab 1 tab BID PO 08/23/16 20:00 09/22/16 19:59 08/29/16 08:25 1 TAB Lorazepam/Syringe (Ativan Inj/ Syringe) 0.5 ml @ 0.5 mls/min Q6H PRN IV 08/24/16 20:00 09/23/16 19:59 08/25/16 14:19 0.5 MLS/MIN Olanzapine 2.5 mg 2.5 mg ONE ONCE PO 08/25/16 02:45 08/25/16 02:46 DC 08/25/16 03:39 2.5 MG Piperacillin Sod/ Tazobactam Sod 3.375 gm/Dextrose 115 ml @ 28.75 mls/ hr Q8H IV 08/25/16 14:00 08/28/16 14:03 DC 08/28/16 05:48 28.75 MLS/HR Piperacillin Sod/ Tazobactam Sod/ Dextrose (Zosyn Iv/D5 100ml) 115 ml @ 230 mls/hr NOW ONCE IV 08/25/16 07:15 08/25/16 07:44 DC 08/25/16 07:44 230 MLS/HR Potassium Chloride (Klor-Con Tab) 40 meq NOW ONCE PO 08/27/16 14:00 08/27/16 14:01 DC 08/27/16 15:57 40 MEQ Subjective History obtained from the patient at bedside via Japanese hand ironer video service on [facility] iPad. She states she is feeling overall well today. Her main complaints are generalized aching, worst in her lower back. She states that she feels better when she is in bed. Along the same lines, she has had issues with hand cramps, long-term. She thinks it is age-related joint changes that is causing the pain. She notes a cough, but further details were not able to be obtained through translation services. She is not having chest pain or shortness of breath. She reports a good appetite and has not had nausea, bowel issues or blood in the bowel. She has not had headache or dizziness. She denies any major active bleeding. Review of Systems: Constitutional: No fever, No sweats ENT: No unusual epistaxis Respiratory: + cough, + sputum, No shortness of breath Cardiovascular: No chest pain, No edema Abdomen: No GI bleeding, No constipation, No diarrhea, No nausea, No pain, No vomiting Musculoskeletal: + see HPI Vital Signs Vital Signs Past 12 Hours Date Time Temp Pulse Resp B/P Pulse Ox O2 Delivery O2 Flow Rate FiO2 08/29/16 14:12 100 16 95 Room Air 08/29/16 14:03 89 16 95 Nasal Cannula 2.0 08/29/16 12:00 Room Air 08/29/16 11:47 36.4 99 16 91/62 99 Room Air 08/29/16 07:45 Room Air 08/29/16 07:23 36.5 88 16 102/68 99 2.0 08/29/16 04:48 37.0 95 18 91/62 97 Nasal Cannula 2.0 08/29/16 04:00 Nasal Cannula 2.0 Physical Exam Constitutional: General Apperance: too thin Level of Distress: NAD Psychiatric: Mental Status: active & alert Head: normocephalic, atraumatic ENMT: hearing grossly normal Lungs: Auscuitation: breath sounds normal, no wheezing Cardiovascular: Heart Auscultation: RRR Abdomen: Inspection & Palpation: soft, non-distended Extremities: no edema Laboratory 08/27/16 06:29 Red Blood Count 2.79, Mean Corpuscular Volume 88.2, Mean Corpuscular Hemoglobin 28.0, Mean Corpuscular Hemoglobin Concent 31.7, Mean Platelet Volume 8.4, Neutrophils (%) (Auto) 73.3, Lymphocytes (%) (Auto) 9.8, Monocytes (%) (Auto) 14.1, Eosinophils (%) (Auto) 0.9, Basophils (%) (Auto) 0.2, Neutrophils # (Auto ) 3.44, Lymphocytes # (Auto) 0.46, Monocytes # (Auto) 0.66, Eosinophils # (Auto ) 0.04, Basophils # (Auto) 0.01 08/28/16 06:15 Red Blood Count 2.89, Mean Corpuscular Volume 89.3, Mean Corpuscular Hemoglobin 27.7, Mean Corpuscular Hemoglobin Concent 31.0, Mean Platelet Volume 8.9, Neutrophils (%) (Auto) 71.3, Lymphocytes (%) (Auto) 15.0, Monocytes (%) (Auto) 8.9, Eosinophils (%) (Auto) 2.3, Basophils (%) (Auto) 0.2, Neutrophils # (Auto) 3.13, Lymphocytes # (Auto) 0.66, Monocytes # (Auto) 0.39, Eosinophils # (Auto) 0.10, Basophils # (Auto) 0.01 08/29/16 07:12 Red Blood Count 2.87, Mean Corpuscular Volume 87.5, Mean Corpuscular Hemoglobin 28.2, Mean Corpuscular Hemoglobin Concent 32.3, Mean Platelet Volume 8.5, Neutrophils (%) (Auto) 67.0, Lymphocytes (%) (Auto) 15.9, Monocytes (%) (Auto) 11.6, Eosinophils (%) (Auto) 3.2, Basophils (%) (Auto) 0.4, Neutrophils # (Auto ) 3.10, Lymphocytes # (Auto) 0.74, Monocytes # (Auto) 0.54, Eosinophils # (Auto ) 0.15, Basophils # (Auto) 0.02 08/27/16 06:22 08/28/16 06:15 Test 08/27/16 06:22 08/27/16 06:29 08/28/16 06:15 08/29/16 07:12 Anion Gap 9.0 mmol/L (3-11) 10.0 mmol/L (3-11) Est Creatinine Clear Calc Drug Dose 36.3 ml/min 41.4 ml/min Estimated GFR () 77.4 90.9 Estimated GFR (Non- 66.8 78.5 BUN/Creatinine Ratio 15.9 (10-20) 23.4 (10-20) Calcium Level 8.2 mg/dl (8.5-10.1) 8.6 mg/dl (8.5-10.1) White Blood Count 4.69 K/uL (4.8-10.8) 4.39 K/uL (4.8-10.8) 4.64 K/uL (4.8-10.8) Red Blood Count 2.79 M/uL (4.2-5.4) 2.89 M/uL (4.2-5.4) 2.87 M/uL (4.2-5.4) Hemoglobin 7.8 g/dL (12.0-16.0) 8.0 g/dL (12.0-16.0) 8.1 g/dL (12.0-16.0) Hematocrit 24.6 % (37-47) 25.8 % (37-47) 25.1 % (37-47) Mean Corpuscular Volume 88.2 fL (80-100) 89.3 fL (80-100) 87.5 fL (80-100) Mean Corpuscular Hemoglobin 28.0 pg (25-34) 27.7 pg (25-34) 28.2 pg (25-34) Mean Corpuscular Hemoglobin Concent 31.7 g/dl (32-36) 31.0 g/dl (32-36) 32.3 g/dl (32-36) Platelet Count 255 K/uL (130-400) 282 K/uL (130-400) 270 K/uL (130-400) Mean Platelet Volume 8.4 fL (7.4-10.4) 8.9 fL (7.4-10.4) 8.5 fL (7.4-10.4) Neutrophils (%) (Auto) 73.3 % 71.3 % 67.0 % Lymphocytes (%) (Auto) 9.8 % 15.0 % 15.9 % Monocytes (%) (Auto) 14.1 % 8.9 % 11.6 % Eosinophils (%) (Auto) 0.9 % 2.3 % 3.2 % Basophils (%) (Auto) 0.2 % 0.2 % 0.4 % Neutrophils # (Auto) 3.44 K/uL (1.4-6.5) 3.13 K/uL (1.4-6.5) 3.10 K/uL (1.4-6.5) Lymphocytes # (Auto) 0.46 K/uL (1.2-3.4) 0.66 K/uL (1.2-3.4) 0.74 K/uL (1.2-3.4) Monocytes # (Auto) 0.66 K/uL (0.11-0.59) 0.39 K/uL (0.11-0.59) 0.54 K/uL (0.11-0.59) Eosinophils # (Auto) 0.04 K/uL (0-0.5) 0.10 K/uL (0-0.5) 0.15 K/uL (0-0.5) Basophils # (Auto) 0.01 K/uL (0-0.2) 0.01 K/uL (0-0.2) 0.02 K/uL (0-0.2) RDW Standard Deviation 49.9 fL (36.4-46.3) 51.2 fL (36.4-46.3) 50.3 fL (36.4-46.3) RDW Coefficient of Variation 15.4 % (11.5-14.5) 15.8 % (11.5-14.5) 15.7 % (11.5-14.5) Immature Granulocyte % (Auto) 1.7 % 2.3 % 1.9 % Immature Granulocyte # (Auto) 0.08 K/uL (0.00-0.02) 0.10 K/uL (0.00-0.02) 0.09 K/uL (0.00-0.02) Red Blood Cell Morphology Unremarkable Polychromasia 1+ Hypochromasia PRESENT Ovalocytes 1+ 1+ Assessment & Plan (1) Pneumonia of both lower lobes Assessment & Plan: See diagnosis section for A/P. (2) Hemolytic anemia Status: Chronic Assessment & Plan: See diagnosis section for A/P. I have discussed the patient's case, impression and plan with Sharon French. Her note reflects my findings and plan. Will follow up as an outpatient. Lee Puente MD Hematology/Oncology.
[2016-08-29] MEDS: AMOXICILLIN/CLAVULANATE TAB 500 MG TAB PO SCH (17:21)
--- NOTE | 2016-08-29 17:36 | PROGRESS NOTE ---
DATE: 08/29/2016 SUBJECTIVE: Dari was seen today. She is pleasant. She smiles. She reaches out and touches the examiner. We tried to communicate using hand signals, but unfortunately there is quite a large language barrier. She has no focal neurologic findings. At this point, I think she is probably back to her baseline. It would be nice if the family could confirm this, but I really do not think we need to go ahead with the MRI scan that we talked about on several prior progress notes, if indeed the family thinks this is typical her behavior. For now, I think we are going to sign off the case as I do not think we are adding any value and certainly be glad to revisit her if the current attending physicians want us to. CRISTOPHER
[2016-08-30] VITALS (8 sets, daily range): BP systolic 88–110; BP diastolic 48–75; PULSE 92–100; TEMP 36.2–36.9; O2SAT 94–100
[2016-08-30 07:48] LABS: IMMATURE RETIC FRACTION 13.2 % (3.0-15.9); RETHE 28.3 PG (28.2-36.6)
[2016-08-30] MEDS: FAMOTIDINE IV INJ 20 MG in DEXTROSE 5% 100ML 100 ML IV SCH (07:59)
[2016-08-30] MEDS: CALCIUM 600MG + VIT D 400 IU TAB PO SCH ×2 (07:59→20:26)
[2016-08-30] MEDS: AMOXICILLIN/CLAVULANATE TAB 500 MG TAB PO SCH ×2 (07:59→15:34)
[2016-08-30] MEDS: LIDODERM (LIDOCAINE) PATCH 5% TD SCH (07:59)
--- NOTE | 2016-08-30 18:34 | Progress Note ---
Medicine Progress Note Date & Time of Visit: Aug 30, 2016 at 18:25. Subjective Patient seen and examined with the aid of a Belarusian file machine operator. Patient denies any physical pain. She notes heartache for the loss of her son a year ago. She does note that she has trouble with her memory. She does feel that it would be best for her to go to a SNF because her family is not able to care for her. Objective Last 8 Hrs Date Time Temp Pulse Resp B/P Pulse Ox O2 Delivery O2 Flow Rate FiO2 08/30/16 16:00 95 Room Air 08/30/16 15:28 36.5 98 16 89/48 95 Room Air 08/30/16 12:28 36.2 92 16 110/64 96 Room Air 08/30/16 12:00 Room Air Physical Exam: General-awake; alert; tearful at times Eyes-EOMI; no scleral icterus ENT-edentulous Neck-no stridor; trachea midline Lungs-clear anteriorly Heart-RRR Abdomen-soft; NTND; nBS Extremities-no c/c/e; no deformity Neuro-oriented to person; answers questions appropriately via file machine operator Laboratory Results: Last 24 Hours Test 08/30/16 07:00 Absolute Reticulocyte Count 0.13 10^6/uL Percent Reticulocyte Count 4.4 % Immature Reticulocyte Fraction 13.2 % Reticulocyte Hemoglobin Content 28.3 PG Lactate Dehydrogenase 281 U/L Assessment & Plan POSSIBLE PNEUMONIA - CT chest with bibasilar parenchymal infiltrates - received Rocephin and Zithromax; changed to Zosyn for possible aspiration component; will finish course with Augmentin - blood cultures negative - weaned off supplemental oxygen - nebulizers PRN - Pulmonary consulted ELEVATED D DIMER - likely due to infection - CT chest negative for PE - lower ext doppler negative for DVT METABOLIC ENCEPHALOPATHY - likely due to infection, dehydration, medications (on tramadol, hydroxyzine as outpatient) - CT head negative for acute process - resolved - Neurology consulted BACK PAIN /FALL - xray of Lumber spine with old L1 compression deformity and moderate degenerative changes - lidocaine patch - Tylenol PRN - PT/OT evaluations recommend home vs SNF (patient's family unable to care for patient) HEMOLYTIC ANEMIA - Hematology consulted - had planned to start outpatient weekly Rituxan - Hgb downtrended initially, but stable ~8 - possible plan for reduced steroid dose LOW TSH - possible sick euthyroid syndrome -due to illness - normal free T4 and low T 3 - repeat TSH in 3-4 weeks as pt improves clinically DVT PROPHYLAXIS - scd and teds - no pharmacologic anticoagulation due to hemolytic anemia DISPOSITION - family requests placement in long term as unable to take care at home - social service consulted for discharge planning FULL CODE Contact : Grand Daughter Ana Pineda Discharge planning: [facility] facility Consultants: Hematology Pulmonary Neurology Procedures: CT head 1. Interval development of mild mucosal thickening of the sinuses. Unchanging left frontal meningioma. Atrophy and chronic small vessel change unaltered from the prior exam. CT chest 1. No evidence for pulmonary embolus. 2. Small bibasilar parenchymal infiltrates superimposed upon chronic interstitial change. LE venous doppler No DVT within the right or left lower extremity. Lumbar spine xray Old compression deformity L1. Moderate degenerative disc changes throughout the entire lumbar region Current Inpatient Medications: Current Inpatient Medications Medications (Trade) Dose Ordered Sig/[place] Route Start Time Stop Time Status Last Admin Dose Admin Acetaminophen (Tylenol Tab) 650 mg Q4H PRN PO 08/21/16 18:45 09/20/16 18:44 08/23/16 09:55 650 MG Al Hydrox/Mg Hydrox/Simethicone (Maalox Max Susp) 15 ml Q4H PRN PO 08/21/16 18:45 09/20/16 18:44 08/23/16 11:21 15 ML Magnesium Hydroxide (Milk Of [place]esia Susp) 30 ml Q6H PRN PO 08/21/16 18:45 09/20/16 18:44 Polyethylene (Miralax Powder Packet) 17 gm DAILY PRN PO 08/21/16 19:00 09/20/16 18:59 Ondansetron HCl (Zofran Inj) 4 mg Q6H PRN IV 08/21/16 18:45 09/20/16 18:44 Lidocaine (Lidoderm Patch 5%) 1 patch QAM TD 08/22/16 20:30 09/21/16 20:29 08/30/16 07:59 1 PATCH Miscellaneous (Remove Lidoderm Patch) 1 ea DAILY@21 N/A 08/22/16 21:00 09/21/16 20:59 08/29/16 20:29 1 EA Albuterol Sulfate 2.5 mg 2.5 mg Q2R PRN INH 08/23/16 11:30 09/22/16 11:29 Famotidine/ Dextrose (Pepcid IV Inj/ D5 100ml) 102 ml @ 200 mls/hr Q12@0800,2000 IV 08/23/16 20:00 09/22/16 19:59 08/30/16 07:59 200 MLS/HR Folic Acid (Folvite Tab) 1 mg QAM PO 08/24/16 08:00 09/23/16 07:59 08/30/16 07:59 1 MG Calcium/Vitamin D 1 tab 1 tab BID PO 08/23/16 20:00 09/22/16 19:59 08/30/16 07:59 1 TAB Lorazepam/Syringe (Ativan Inj/ Syringe) 0.5 ml @ 0.5 mls/min Q6H PRN IV 08/24/16 20:00 09/23/16 19:59 08/25/16 14:19 0.5 MLS/MIN Amoxicillin/ Clavulanate Potassium (Augmentin Tab) 500 mg BIDM PO 08/29/16 17:00 09/02/16 16:59 08/30/16 15:34 500 MG Ipratropium [place] (Atrovent 0.02% 0.5MG/2.5ML Neb) 0.5 mg Q6R PRN INH 08/29/16 15:00 09/28/16 14:59
[2016-08-31 00:04] VITALS: BP 85/60; PULSE 77; TEMP 37.2; O2SAT 90
[2016-08-31 07:38] VITALS: BP 93/62; PULSE 90; TEMP 36.8; O2SAT 100
[2016-08-31 07:42] LABS: HEMATOCRIT 24.4 % (37-47); MEAN CELL VOLUME 86.5 fL (80-100); MEAN CORPUSCULAR HEMOGLOBIN 28.4 pg (25-34); MEAN CORPUSCULAR HGB CONC 32.8 g/dl (32-36); MEAN PLATELET VOLUME 8.4 fL (7.4-10.4); PLATELET COUNT 301 K/uL (130-400); RED BLOOD COUNT 2.82 M/uL (4.2-5.4); WHITE BLOOD COUNT 5.39 K/uL (4.8-10.8)
[2016-08-31 08:06] LABS: BUN/CREATININE RATIO 23.9 (10-20); CALCIUM 9.1 mg/dl (8.5-10.1); CREATININE 0.77 mg/dl (0.60-1.20); POTASSIUM 3.9 mmol/L (3.5-5.1)
[2016-08-31] MEDS: AMOXICILLIN/CLAVULANATE TAB 500 MG TAB PO SCH ×2 (08:37→17:00)
[2016-08-31] MEDS: FAMOTIDINE 20 MG TAB PO SCH (08:37)
[2016-08-31] MEDS: CALCIUM 600MG + VIT D 400 IU TAB PO SCH ×2 (08:37→20:43)
[2016-08-31] MEDS: LIDODERM (LIDOCAINE) PATCH 5% TD SCH (08:37)
[2016-08-31 15:55] VITALS: BP 93/60; PULSE 98; TEMP 36.6; O2SAT 94
[2016-08-31 16:00] VITALS: O2SAT 94
--- NOTE | 2016-08-31 17:27 | Progress Note ---
Medicine Progress Note Date & Time of Visit: Aug 31, 2016 at 17:24. Subjective Patient seen and examined with aid of Luxembourgish staff occupational therapist. Is without complaints. Expresses gratitude for care. Objective Last 8 Hrs Date Time Temp Pulse Resp B/P Pulse Ox O2 Delivery O2 Flow Rate FiO2 08/31/16 15:55 36.6 98 16 93/60 94 Room Air Physical Exam: General-awake; alert; tearful at times Eyes-EOMI; no scleral icterus ENT-edentulous Neck-no stridor; trachea midline Lungs-CTA bilaterally; no wheezes/crackles Heart-RRR Abdomen-soft; NTND; nBS Extremities-no c/c/e; no deformity Neuro-answers questions appropriately via cement finisher helper Laboratory Results: Last 24 Hours Test 08/31/16 07:12 White Blood Count 5.39 K/uL Red Blood Count 2.82 M/uL Hemoglobin 8.0 g/dL Hematocrit 24.4 % Mean Corpuscular Volume 86.5 fL Mean Corpuscular Hemoglobin 28.4 pg Mean Corpuscular Hemoglobin Concent 32.8 g/dl RDW Standard Deviation 49.6 fL RDW Coefficient of Variation 15.5 % Platelet Count 301 K/uL Mean Platelet Volume 8.4 fL Sodium Level 139 mmol/L Potassium Level 3.9 mmol/L Chloride Level 105 mmol/L Carbon Dioxide Level 25 mmol/L Anion Gap 9.0 mmol/L Blood Urea Nitrogen 18 mg/dl Creatinine 0.77 mg/dl Est Creatinine Clear Calc Drug Dose 37.1 ml/min Estimated GFR () 81.0 Estimated GFR (Non- 69.9 BUN/Creatinine Ratio 23.9 Random Glucose 87 mg/dl Calcium Level 9.1 mg/dl Total Bilirubin 0.5 mg/dl Direct Bilirubin 0.1 mg/dl Aspartate Amino Transf (AST/SGOT) 30 U/L Alanine Aminotransferase (ALT/SGPT) 42 U/L Alkaline Phosphatase 80 U/L Total Protein 7.1 gm/dl Albumin 2.6 gm/dl Assessment & Plan POSSIBLE PNEUMONIA - CT chest on admission with bibasilar parenchymal infiltrates - received Rocephin and Zithromax; changed to Zosyn for possible aspiration component; finish course with Augmentin - blood cultures negative - weaned off supplemental oxygen - nebulizers PRN - Pulmonary consulted ELEVATED D DIMER - likely due to infection - CT chest negative for PE - lower ext doppler negative for DVT METABOLIC ENCEPHALOPATHY - likely due to infection, dehydration, medications (on tramadol, hydroxyzine as outpatient) - CT head negative for acute process - resolved - Neurology consulted BACK PAIN /FALL - xray of Lumber spine with old L1 compression deformity and moderate degenerative changes - lidocaine patch - Tylenol PRN - PT/OT evaluations recommend home vs SNF (patient's family unable to care for patient) HEMOLYTIC ANEMIA - Hematology consulted - plans to start outpatient weekly Rituxan - Hgb downtrended initially, but stable ~8 LOW TSH - possible sick euthyroid syndrome -due to illness - normal free T4 and low T 3 - repeat TSH in 3-4 weeks as pt improves clinically DVT PROPHYLAXIS - scd and teds - no pharmacologic anticoagulation due to hemolytic anemia DISPOSITION - family requests placement in half-way as unable to take care at home - social service consulted for discharge planning FULL CODE Contact : Grand Daughter Ana Pineda [facility] Consultants: Hematology Pulmonary Neurology Procedures: CT head 1. Interval development of mild mucosal thickening of the sinuses. Unchanging left frontal meningioma. Atrophy and chronic small vessel change unaltered from the prior exam. CT chest 1. No evidence for pulmonary embolus. 2. Small bibasilar parenchymal infiltrates superimposed upon chronic interstitial change. LE venous doppler No DVT within the right or left lower extremity. Lumbar spine xray Old compression deformity L1. Moderate degenerative disc changes throughout the entire lumbar region Current Inpatient Medications: Current Inpatient Medications Medications (Trade) Dose Ordered Sig/[place] Route Start Time Stop Time Status Last Admin Dose Admin Acetaminophen (Tylenol Tab) 650 mg Q4H PRN PO 08/21/16 18:45 09/20/16 18:44 08/23/16 09:55 650 MG Al Hydrox/Mg Hydrox/Simethicone (Maalox Max Susp) 15 ml Q4H PRN PO 08/21/16 18:45 09/20/16 18:44 08/23/16 11:21 15 ML Magnesium Hydroxide (Milk Of Magnesia Susp) 30 ml Q6H PRN PO 08/21/16 18:45 09/20/16 18:44 Polyethylene (Miralax Powder Packet) 17 gm DAILY PRN PO 08/21/16 19:00 09/20/16 18:59 Ondansetron HCl (Zofran Inj) 4 mg Q6H PRN IV 08/21/16 18:45 09/20/16 18:44 Lidocaine (Lidoderm Patch 5%) 1 patch QAM TD 08/22/16 20:30 09/21/16 20:29 08/31/16 08:37 1 PATCH Miscellaneous (Remove Lidoderm Patch) 1 ea DAILY@21 N/A 08/22/16 21:00 09/21/16 20:59 08/30/16 20:26 1 EA Albuterol Sulfate (Ventolin 0.083% 2.5MG/3ML Neb) 2.5 mg Q2R PRN INH 08/23/16 11:30 09/22/16 11:29 Folic Acid (Folvite Tab) 1 mg QAM PO 08/24/16 08:00 09/23/16 07:59 08/31/16 08:37 1 MG Calcium/Vitamin D (Caltrate Plus Tab) 1 tab BID PO 08/23/16 20:00 09/22/16 19:59 08/31/16 08:37 1 TAB Amoxicillin/ Clavulanate Potassium (Augmentin Tab) 500 mg BIDM PO 08/29/16 17:00 08/31/16 23:55 08/31/16 08:37 500 MG Ipratropium [place] (Atrovent 0.02% 0.5MG/2.5ML Neb) 0.5 mg Q6R PRN INH 08/29/16 15:00 09/28/16 14:59 Famotidine (Pepcid Tab) 20 mg QAM PO 08/31/16 09:00 09/30/16 08:59 08/31/16 08:37 20 MG
--- NOTE | 2016-08-31 18:32 | Hematology/Oncology Prog Note ---
Hematology/Onc Progress Note Date of Service Aug 31, 2016. Subjective Patient seen and examined Wolof Cow Puncher was used to communicate with the patient for subjective - [id number] Khadar Patient states feels well today. She still has cough, states it is occasional. She denies any fever or chills or shortness of breath She states that she is not tired. She denies any pain. She said she had no complaints or questions at this time. She feels grateful Vital Signs Vital Signs Past 12 Hours Date Time Temp Pulse Resp B/P Pulse Ox O2 Delivery O2 Flow Rate FiO2 08/31/16 15:55 36.6 98 16 93/60 94 Room Air 08/31/16 07:45 Room Air 08/31/16 07:38 36.8 90 16 93/62 100 Room Air Physical Exam Gen: patient sitting in chair, awake and alert, appropriate, NAD, knows she is in hospital and tells me her name HEENT: Anicteric moist buccal mucosa Lungs: few bibasilar crackles CV: S1 S2 RRR Abd: soft NT/ND +BS Ext: no edema, nontender Laboratory Results Past 24 Hours Test 08/31/16 07:12 Range/Units White Blood Count 5.39 4.8-10.8 K/uL Red Blood Count 2.82 4.2-5.4 M/uL Hemoglobin 8.0 12.0-16.0 g/dL Hematocrit 24.4 37-47 % Mean Corpuscular Volume 86.5 80-100 fL Mean Corpuscular Hemoglobin 28.4 25-34 pg Mean Corpuscular Hemoglobin Concent 32.8 32-36 g/dl RDW Standard Deviation 49.6 36.4-46.3 fL RDW Coefficient of Variation 15.5 11.5-14.5 % Platelet Count 301 130-400 K/uL Mean Platelet Volume 8.4 7.4-10.4 fL Sodium Level 139 136-145 mmol/L Potassium Level 3.9 3.5-5.1 mmol/L Chloride Level 105 98-107 mmol/L Carbon Dioxide Level 25 21-32 mmol/L Anion Gap 9.0 3-11 mmol/L Blood Urea Nitrogen 18 7-18 mg/dl Creatinine 0.77 0.60-1.20 mg/dl Est Creatinine Clear Calc Drug Dose 37.1 ml/min Estimated GFR () 81.0 Estimated GFR (Non- 69.9 BUN/Creatinine Ratio 23.9 10-20 Random Glucose 87 70-99 mg/dl Calcium Level 9.1 8.5-10.1 mg/dl Total Bilirubin 0.5 0.2-1 mg/dl Direct Bilirubin 0.1 0-0.2 mg/dl Aspartate Amino Transf (AST/SGOT) 30 15-37 U/L Alanine Aminotransferase (ALT/SGPT) 42 12-78 U/L Alkaline Phosphatase 80 45-117 U/L Total Protein 7.1 6.4-8.2 gm/dl Albumin 2.6 3.4-5.0 gm/dl haptoglobin 80 Assessment & Plan 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 Will hold off on prednisone at this time. I discussed with her and she is interested in following up in office and receiving rituxan which she received a year ago and tolerated well for her hemolytic anemia. At this time her haptoglobin is within normal range. Recommend monitor CBC. Also recommend check for any blood loss. Patient was able to communicate with me with election supervisor and answered questions appropriately. Please call us as needed Follow up in the office within 1 week of discharge.
[2016-08-31 22:56] VITALS: BP 92/68; PULSE 95; TEMP 36.7; O2SAT 100
[2016-09-01] VITALS: O2SAT 100
[2016-09-01 06:47] LABS: HEMATOCRIT 23.8 % (37-47); MEAN CELL VOLUME 87.2 fL (80-100); MEAN CORPUSCULAR HEMOGLOBIN 27.8 pg (25-34); MEAN CORPUSCULAR HGB CONC 31.9 g/dl (32-36); MEAN PLATELET VOLUME 8.5 fL (7.4-10.4); PLATELET COUNT 299 K/uL (130-400); RED BLOOD COUNT 2.73 M/uL (4.2-5.4); WHITE BLOOD COUNT 6.05 K/uL (4.8-10.8)
[2016-09-01 07:16] LABS: BUN/CREATININE RATIO 24.8 (10-20); CALCIUM 8.9 mg/dl (8.5-10.1); CREATININE 0.77 mg/dl (0.60-1.20); POTASSIUM 3.8 mmol/L (3.5-5.1)
[2016-09-01 07:17] VITALS: BP 95/68; PULSE 89; TEMP 36.9; O2SAT 97
[2016-09-01 07:19] LABS: ALB/GLOB RATIO 0.6 (0.9-2)
[2016-09-01] MEDS: LIDODERM (LIDOCAINE) PATCH 5% TD SCH (07:38)
[2016-09-01] MEDS: CALCIUM 600MG + VIT D 400 IU TAB PO SCH ×2 (07:38→20:38)
[2016-09-01] MEDS: FAMOTIDINE 20 MG TAB PO SCH (07:38)
[2016-09-01 15:22] VITALS: BP 102/69; PULSE 79; TEMP 36.7; O2SAT 95
[2016-09-01 16:00] VITALS: O2SAT 99
--- NOTE | 2016-09-01 16:46 | Progress Note ---
Medicine Progress Note Date & Time of Visit: Sep 01, 2016 at 16:42. Subjective Patient seen and examined with aid of Slov[place] margin analyst. Explained to patient about starting prednisone for hemolytic anemia. D/w patient possibility of discharge to [facility]. Objective Last 8 Hrs Date Time Temp Pulse Resp B/P Pulse Ox O2 Delivery O2 Flow Rate FiO2 09/01/16 15:22 36.7 79 16 102/69 95 Room Air Physical Exam: General-awake; alert; tearful at times Eyes-EOMI; no scleral icterus ENT-edentulous Neck-no stridor; trachea midline Lungs-CTA bilaterally; no wheezes/crackles Heart-RRR Abdomen-soft; NTND; nBS Extremities-no c/c/e; no deformity Neuro-answers questions appropriately via electronic prepress system operator Laboratory Results: Last 24 Hours Test 09/01/16 06:17 White Blood Count 6.05 K/uL Red Blood Count 2.73 M/uL Hemoglobin 7.6 g/dL Hematocrit 23.8 % Mean Corpuscular Volume 87.2 fL Mean Corpuscular Hemoglobin 27.8 pg Mean Corpuscular Hemoglobin Concent 31.9 g/dl RDW Standard Deviation 49.6 fL RDW Coefficient of Variation 15.7 % Platelet Count 299 K/uL Mean Platelet Volume 8.5 fL Sodium Level 138 mmol/L Potassium Level 3.8 mmol/L Chloride Level 104 mmol/L Carbon Dioxide Level 25 mmol/L Anion Gap 9.0 mmol/L Blood Urea Nitrogen 19 mg/dl Creatinine 0.77 mg/dl Est Creatinine Clear Calc Drug Dose 37.1 ml/min Estimated GFR () 81.0 Estimated GFR (Non- 69.9 BUN/Creatinine Ratio 24.8 Random Glucose 79 mg/dl Calcium Level 8.9 mg/dl Total Bilirubin 0.7 mg/dl Aspartate Amino Transf (AST/SGOT) 26 U/L Alanine Aminotransferase (ALT/SGPT) 39 U/L Alkaline Phosphatase 77 U/L Total Protein 7.0 gm/dl Albumin 2.7 gm/dl Globulin 4.3 gm/dl Albumin/Globulin Ratio 0.6 Assessment & Plan POSSIBLE PNEUMONIA - CT chest on admission with bibasilar parenchymal infiltrates - received Rocephin and Zithromax; changed to Zosyn for possible aspiration component; finished course with Augmentin - blood cultures negative - weaned off supplemental oxygen - nebulizers PRN - Pulmonary consulted - resolved ELEVATED D DIMER - likely due to infection - CT chest negative for PE - lower ext doppler negative for DVT METABOLIC ENCEPHALOPATHY - likely due to infection, dehydration, medications (on tramadol, hydroxyzine as outpatient) - CT head negative for acute process - Neurology consulted - resolved BACK PAIN /FALL - xray of Lumber spine with old L1 compression deformity and moderate degenerative changes - lidocaine patch - Tylenol PRN - PT/OT evaluations recommend home vs SNF (patient's family unable to care for patient) HEMOLYTIC ANEMIA - Hematology consulted - plans to start outpatient weekly Rituxan - Hgb mildly downtrended - start prednisone LOW TSH - possible sick euthyroid syndrome -due to illness - normal free T4 and low T 3 - repeat TSH in 3-4 weeks as pt improves clinically DVT PROPHYLAXIS - scd and teds - no pharmacologic anticoagulation due to hemolytic anemia DISPOSITION - family requests placement in [facility]dc as unable to take care at home - social service consulted for discharge planning FULL CODE Contact : Grand Daughter Ana Pineda Discharge planning: assisted facility Consultants: Hematology Pulmonary Neurology Procedures: CT head 1. Interval development of mild mucosal thickening of the sinuses. Unchanging left frontal meningioma. Atrophy and chronic small vessel change unaltered from the prior exam. CT chest 1. No evidence for pulmonary embolus. 2. Small bibasilar parenchymal infiltrates superimposed upon chronic interstitial change. LE venous doppler No DVT within the right or left lower extremity. Lumbar spine xray Old compression deformity L1. Moderate degenerative disc changes throughout the entire lumbar region Current Inpatient Medications: Current Inpatient Medications Medications (Trade) Dose Ordered Sig/Mingo Route Start Time Stop Time Status Last Admin Dose Admin Acetaminophen (Tylenol Tab) 650 mg Q4H PRN PO 08/21/16 18:45 09/20/16 18:44 08/23/16 09:55 650 MG Al Hydrox/Mg Hydrox/Simethicone (Maalox Max Susp) 15 ml Q4H PRN PO 08/21/16 18:45 09/20/16 18:44 08/23/16 11:21 15 ML Magnesium Hydroxide (Milk Of Magnesia Susp) 30 ml Q6H PRN PO 08/21/16 18:45 09/20/16 18:44 Polyethylene (Miralax Powder Packet) 17 gm DAILY PRN PO 08/21/16 19:00 09/20/16 18:59 Ondansetron HCl (Zofran Inj) 4 mg Q6H PRN IV 08/21/16 18:45 09/20/16 18:44 Lidocaine (Lidoderm Patch 5%) 1 patch QAM TD 08/22/16 20:30 09/21/16 20:29 09/01/16 07:38 1 PATCH Miscellaneous (Remove Lidoderm Patch) 1 ea DAILY@21 N/A 08/22/16 21:00 09/21/16 20:59 08/31/16 20:43 1 EA Albuterol Sulfate (Ventolin 0.083% 2.5MG/3ML Neb) 2.5 mg Q2R PRN INH 08/23/16 11:30 09/22/16 11:29 Folic Acid (Folvite Tab) 1 mg QAM PO 08/24/16 08:00 09/23/16 07:59 09/01/16 07:38 1 MG Calcium/Vitamin D (Caltrate Plus Tab) 1 tab BID PO 08/23/16 20:00 09/22/16 19:59 09/01/16 07:38 1 TAB Ipratropium [place] (Atrovent 0.02% 0.5MG/2.5ML Neb) 0.5 mg Q6R PRN INH 08/29/16 15:00 09/28/16 14:59 Famotidine (Pepcid Tab) 20 mg QAM PO 08/31/16 09:00 09/30/16 08:59 09/01/16 07:38 20 MG Prednisone (PredniSONE TAB) 20 mg DAILY PO 09/01/16 11:30 10/01/16 11:29 09/01/16 12:01 20 MG
[2016-09-01 23:06] VITALS: BP 103/66; PULSE 88; TEMP 36.6; O2SAT 96
[2016-09-02 07:20] LABS: HEMATOCRIT 24.3 % (37-47)
[2016-09-02] MEDS: LIDODERM (LIDOCAINE) PATCH 5% TD SCH (07:21)
[2016-09-02] MEDS: CALCIUM 600MG + VIT D 400 IU TAB PO SCH ×2 (07:21→19:53)
[2016-09-02] MEDS: FAMOTIDINE 20 MG TAB PO SCH (07:23)
[2016-09-02 07:31] VITALS: BP 100/65; PULSE 76; TEMP 36.5; O2SAT 98
[2016-09-02 08:00] VITALS: O2SAT 98
[2016-09-02 15:01] VITALS: BP 102/68; PULSE 80; TEMP 36.7; O2SAT 96
[2016-09-02 15:30] VITALS: O2SAT 98
--- NOTE | 2016-09-02 18:13 | Progress Note ---
Medicine Progress Note Date & Time of Visit: Sep 02, 2016 at 18:10. Subjective Patient seen and examined. Grand-daughter present at bedside. Patient feeling well. Grand-daughter states that this is the best she has seen the patient look in the past month. Notes that her grand-mother is occasionally forgetful, but denies any sosa confusion or hallucinations. Objective Last 8 Hrs Date Time Temp Pulse Resp B/P Pulse Ox O2 Delivery O2 Flow Rate FiO2 09/02/16 15:30 98 Room Air 09/02/16 15:01 36.7 80 16 102/68 96 Room Air Physical Exam: General-awake; alert; NAD Eyes-EOMI; no scleral icterus ENT-edentulous Neck-no stridor; trachea midline Lungs-CTA bilaterally; no wheezes/crackles Heart-RRR Abdomen-soft; NTND; nBS Extremities-no c/c/e; no deformity Neuro-no gross focal deficits Laboratory Results: Last 24 Hours Test 09/02/16 07:07 Hemoglobin 7.9 g/dL Hematocrit 24.3 % Assessment & Plan POSSIBLE PNEUMONIA - CT chest on admission with bibasilar parenchymal infiltrates - received Rocephin and Zithromax; changed to Zosyn for possible aspiration component; finished course with Augmentin - blood cultures negative - weaned off supplemental oxygen - nebulizers PRN - Pulmonary consulted - resolved ELEVATED D DIMER - likely due to infection - CT chest negative for PE - lower ext doppler negative for DVT METABOLIC ENCEPHALOPATHY - likely due to infection, dehydration, medications (on tramadol, hydroxyzine as outpatient) - CT head negative for acute process - Neurology consulted - resolved BACK PAIN /FALL - xray of Lumber spine with old L1 compression deformity and moderate degenerative changes - lidocaine patch - Tylenol PRN - PT/OT evaluations recommend home vs SNF (patient's family unable to care for patient) HEMOLYTIC ANEMIA - Hematology consulted - plans to possibly start outpatient weekly Rituxan - Hgb stable - started prednisone LOW TSH - possible sick euthyroid syndrome -due to illness - normal free T4 and low T 3 - repeat TSH in 3-4 weeks as pt improves clinically DVT PROPHYLAXIS - scd and teds - no pharmacologic anticoagulation due to hemolytic anemia DISPOSITION - family requests placement in retirement as unable to take care at home; awaiting placement - social service consulted for discharge planning FULL CODE Contact : Grand Familia Pineda Discharge planning: custodial facility Consultants: Hematology Pulmonary Neurology Procedures: CT head 1. Interval development of mild mucosal thickening of the sinuses. Unchanging left frontal meningioma. Atrophy and chronic small vessel change unaltered from the prior exam. CT chest 1. No evidence for pulmonary embolus. 2. Small bibasilar parenchymal infiltrates superimposed upon chronic interstitial change. LE venous doppler No DVT within the right or left lower extremity. Lumbar spine xray Old compression deformity L1. Moderate degenerative disc changes throughout the entire lumbar region Current Inpatient Medications: Current Inpatient Medications Medications (Trade) Dose Ordered Sig/Mingo Route Start Time Stop Time Status Last Admin Dose Admin Acetaminophen (Tylenol Tab) 650 mg Q4H PRN PO 08/21/16 18:45 09/20/16 18:44 08/23/16 09:55 650 MG Al Hydrox/Mg Hydrox/Simethicone (Maalox Max Susp) 15 ml Q4H PRN PO 08/21/16 18:45 09/20/16 18:44 08/23/16 11:21 15 ML Magnesium Hydroxide (Milk Of Magnesia Susp) 30 ml Q6H PRN PO 08/21/16 18:45 09/20/16 18:44 Polyethylene (Miralax Powder Packet) 17 gm DAILY PRN PO 08/21/16 19:00 09/20/16 18:59 Ondansetron HCl (Zofran Inj) 4 mg Q6H PRN IV 08/21/16 18:45 09/20/16 18:44 Lidocaine (Lidoderm Patch 5%) 1 patch QAM TD 08/22/16 20:30 09/21/16 20:29 09/02/16 07:21 1 PATCH Miscellaneous (Remove Lidoderm Patch) 1 ea DAILY@21 N/A 08/22/16 21:00 09/21/16 20:59 09/01/16 20:39 1 EA Albuterol Sulfate (Ventolin 0.083% 2.5MG/3ML Neb) 2.5 mg Q2R PRN INH 08/23/16 11:30 09/22/16 11:29 Folic Acid (Folvite Tab) 1 mg QAM PO 08/24/16 08:00 09/23/16 07:59 09/02/16 07:22 1 MG Calcium/Vitamin D (Caltrate Plus Tab) 1 tab BID PO 08/23/16 20:00 09/22/16 19:59 09/02/16 07:21 1 TAB Ipratropium [place] (Atrovent 0.02% 0.5MG/2.5ML Neb) 0.5 mg Q6R PRN INH 08/29/16 15:00 09/28/16 14:59 Famotidine (Pepcid Tab) 20 mg QAM PO 08/31/16 09:00 09/30/16 08:59 09/02/16 07:23 20 MG Prednisone (PredniSONE TAB) 20 mg DAILY PO 09/01/16 11:30 10/01/16 11:29 09/02/16 07:23 20 MG
[2016-09-02 23:25] VITALS: BP 98/64; PULSE 70; TEMP 37; O2SAT 98
[2016-09-03 07:24] VITALS: BP 110/73; PULSE 114; TEMP 36.9; O2SAT 97
[2016-09-03 08:00] VITALS: O2SAT 97
[2016-09-03] MEDS: FAMOTIDINE 20 MG TAB PO SCH ×2 (08:08→08:32)
[2016-09-03] MEDS: LIDODERM (LIDOCAINE) PATCH 5% TD SCH ×2 (08:08→08:33)
[2016-09-03] MEDS: CALCIUM 600MG + VIT D 400 IU TAB PO SCH ×3 (08:08→21:00)
[2016-09-03 15:00] VITALS: BP 121/76; PULSE 94; TEMP 37.6; O2SAT 96
[2016-09-03] MEDS: ACETAMINOPHEN 325 MG TAB PO PRN (15:46)
[2016-09-03 16:00] VITALS: O2SAT 97
--- NOTE | 2016-09-03 17:24 | Progress Note ---
Medicine Progress Note Date & Time of Visit: Sep 03, 2016 at 17:21. Subjective Patient seen. Refusing exam. Agitated. Thinks that she is in [facility] in [place]. Believes that her son (who is ) is in debt and a lot of trouble. Objective Last 8 Hrs Date Time Temp Pulse Resp B/P Pulse Ox O2 Delivery O2 Flow Rate FiO2 09/03/16 16:00 97 Room Air 09/03/16 15:00 37.6 94 18 121/76 96 Room Air Physical Exam: General-awake; alert; agitated Assessment & Plan METABOLIC ENCEPHALOPATHY - likely due to infection, dehydration, medications (on tramadol, hydroxyzine as outpatient) - CT head negative for acute process - Neurology consulted - agitated and confused today, most likely as a result of prednisone started for hemolytic anemia HEMOLYTIC ANEMIA - Hematology consulted - plans to possibly start outpatient weekly Rituxan - Hgb stable - started prednisone - patient now confused and agitated, therefore will hold POSSIBLE PNEUMONIA - resolved - CT chest on admission with bibasilar parenchymal infiltrates - received Rocephin and Zithromax; changed to Zosyn for possible aspiration component; finished course with Augmentin - blood cultures negative - weaned off supplemental oxygen - nebulizers PRN - Pulmonary consulted ELEVATED D DIMER - likely due to infection - CT chest negative for PE - lower ext doppler negative for DVT BACK PAIN /FALL - resolved - xray of Lumber spine with old L1 compression deformity and moderate degenerative changes - received lidocaine patch - Tylenol PRN - PT/OT evaluations recommend home vs SNF (patient's family unable to care for patient) LOW TSH - possible sick euthyroid syndrome -due to illness - normal free T4 and low T 3 - repeat TSH in 3-4 weeks as pt improves clinically DVT PROPHYLAXIS - scd and teds - no pharmacologic anticoagulation due to hemolytic anemia DISPOSITION - family requests placement in skilled nursing as unable to take care at home; awaiting placement - social service consulted for discharge planning FULL CODE Contact : Grand Daughter Ana Pineda Discharge planning: longterm facility Consultants: Hematology Pulmonary Neurology Procedures: CT head 1. Interval development of mild mucosal thickening of the sinuses. Unchanging left frontal meningioma. Atrophy and chronic small vessel change unaltered from the prior exam. CT chest 1. No evidence for pulmonary embolus. 2. Small bibasilar parenchymal infiltrates superimposed upon chronic interstitial change. LE venous doppler No DVT within the right or left lower extremity. Lumbar spine xray Old compression deformity L1. Moderate degenerative disc changes throughout the entire lumbar region Current Inpatient Medications: Current Inpatient Medications Medications (Trade) Dose Ordered Sig/Mingo Route Start Time Stop Time Status Last Admin Dose Admin Acetaminophen (Tylenol Tab) 650 mg Q4H PRN PO 08/21/16 18:45 09/20/16 18:44 09/03/16 15:46 650 MG Al Hydrox/Mg Hydrox/Simethicone (Maalox Max Susp) 15 ml Q4H PRN PO 08/21/16 18:45 09/20/16 18:44 08/23/16 11:21 15 ML Magnesium Hydroxide (Milk Of Magnesia Susp) 30 ml Q6H PRN PO 08/21/16 18:45 09/20/16 18:44 Polyethylene (Miralax Powder Packet) 17 gm DAILY PRN PO 08/21/16 19:00 09/20/16 18:59 Ondansetron HCl (Zofran Inj) 4 mg Q6H PRN IV 08/21/16 18:45 09/20/16 18:44 Lidocaine (Lidoderm Patch 5%) 1 patch QAM TD 08/22/16 20:30 09/21/16 20:29 09/02/16 07:21 1 PATCH Miscellaneous (Remove Lidoderm Patch) 1 ea DAILY@21 N/A 08/22/16 21:00 09/21/16 20:59 09/02/16 20:58 1 EA Albuterol Sulfate (Ventolin 0.083% 2.5MG/3ML Neb) 2.5 mg Q2R PRN INH 08/23/16 11:30 09/22/16 11:29 Folic Acid (Folvite Tab) 1 mg QAM PO 08/24/16 08:00 09/23/16 07:59 09/02/16 07:22 1 MG Calcium/Vitamin D (Caltrate Plus Tab) 1 tab BID PO 08/23/16 20:00 09/22/16 19:59 09/02/16 19:53 1 TAB Ipratropium [place] (Atrovent 0.02% 0.5MG/2.5ML Neb) 0.5 mg Q6R PRN INH 08/29/16 15:00 09/28/16 14:59 Famotidine (Pepcid Tab) 20 mg QAM PO 08/31/16 09:00 09/30/16 08:59 09/02/16 07:23 20 MG Prednisone (PredniSONE TAB) 20 mg DAILY PO 09/01/16 11:30 10/01/16 11:29 09/02/16 07:23 20 MG
[2016-09-04 08:00] VITALS: O2SAT 97
[2016-09-04 10:21] LABS: HEMATOCRIT 24.2 % (37-47); MEAN CELL VOLUME 86.4 fL (80-100); MEAN CORPUSCULAR HEMOGLOBIN 28.2 pg (25-34); MEAN CORPUSCULAR HGB CONC 32.6 g/dl (32-36); MEAN PLATELET VOLUME 7.7 fL (7.4-10.4); PLATELET COUNT 258 K/uL (130-400); WHITE BLOOD COUNT 5.55 K/uL (4.8-10.8)
[2016-09-04] MEDS: CALCIUM 600MG + VIT D 400 IU TAB PO SCH ×2 (13:08→21:33)
[2016-09-04] MEDS: FAMOTIDINE 20 MG TAB PO SCH (13:08)
[2016-09-04 15:15] VITALS: O2SAT 97
--- NOTE | 2016-09-04 16:02 | Progress Note ---
Medicine Progress Note Date & Time of Visit: Sep 04, 2016 at 16:00. Subjective Patient seen and examined. Seen with aid of [place] circuit board repair technician. Patient is without complaints. Objective Last 8 Hrs Date Time Temp Pulse Resp B/P Pulse Ox O2 Delivery O2 Flow Rate FiO2 09/04/16 15:15 97 Room Air Physical Exam: General-awake; alert; NAD Eyes-EOMI; no scleral icterus ENT-edentulous Neck-no stridor; trachea midline Lungs-CTA bilaterally; no wheezes/crackles Heart-RRR Abdomen-soft; NTND; nBS Extremities-no c/c/e; no deformity Neuro-no gross focal deficits Laboratory Results: Last 24 Hours Test 09/04/16 10:13 White Blood Count 5.55 K/uL Red Blood Count 2.80 M/uL Hemoglobin 7.9 g/dL Hematocrit 24.2 % Mean Corpuscular Volume 86.4 fL Mean Corpuscular Hemoglobin 28.2 pg Mean Corpuscular Hemoglobin Concent 32.6 g/dl RDW Standard Deviation 50.5 fL RDW Coefficient of Variation 15.9 % Platelet Count 258 K/uL Mean Platelet Volume 7.7 fL Assessment & Plan METABOLIC ENCEPHALOPATHY - on admission, likely due to infection, dehydration, medications (on tramadol, hydroxyzine as outpatient) - CT head negative for acute process - Neurology consulted - agitated and confused after starting prednisone; improved after discontinuing HEMOLYTIC ANEMIA - Hematology consulted - plans to possibly start outpatient weekly Rituxan - Hgb stable - started prednisone - patient became confused and agitated, therefore on hold POSSIBLE PNEUMONIA - resolved - CT chest on admission with bibasilar parenchymal infiltrates - received Rocephin and Zithromax; changed to Zosyn for possible aspiration component; finished course with Augmentin - blood cultures negative - weaned off supplemental oxygen - nebulizers PRN - Pulmonary consulted ELEVATED D DIMER - likely due to infection - CT chest negative for PE - lower ext doppler negative for DVT BACK PAIN /FALL - resolved - xray of Lumber spine with old L1 compression deformity and moderate degenerative changes - received lidocaine patch - Tylenol PRN - PT/OT evaluations recommend home vs SNF (patient's family unable to care for patient) LOW TSH - possible sick euthyroid syndrome -due to illness - normal free T4 and low T 3 - repeat TSH in 3-4 weeks as pt improves clinically DVT PROPHYLAXIS - scd and teds - no pharmacologic anticoagulation due to hemolytic anemia DISPOSITION - family requests placement in shelter as unable to take care at home; awaiting placement - social service consulted for discharge planning FULL CODE Contact : Grand Daughter Ana Pineda Discharge planning: detention facility Consultants: Hematology Pulmonary Neurology Procedures: CT head 1. Interval development of mild mucosal thickening of the sinuses. Unchanging left frontal meningioma. Atrophy and chronic small vessel change unaltered from the prior exam. CT chest 1. No evidence for pulmonary embolus. 2. Small bibasilar parenchymal infiltrates superimposed upon chronic interstitial change. LE venous doppler No DVT within the right or left lower extremity. Lumbar spine xray Old compression deformity L1. Moderate degenerative disc changes throughout the entire lumbar region Current Inpatient Medications: Current Inpatient Medications Medications (Trade) Dose Ordered Sig/Mingo Route Start Time Stop Time Status Last Admin Dose Admin Acetaminophen (Tylenol Tab) 650 mg Q4H PRN PO 08/21/16 18:45 09/20/16 18:44 09/03/16 15:46 650 MG Al Hydrox/Mg Hydrox/Simethicone (Maalox Max Susp) 15 ml Q4H PRN PO 08/21/16 18:45 09/20/16 18:44 08/23/16 11:21 15 ML Magnesium Hydroxide (Milk Of Magnesia Susp) 30 ml Q6H PRN PO 08/21/16 18:45 09/20/16 18:44 Polyethylene (Miralax Powder Packet) 17 gm DAILY PRN PO 08/21/16 19:00 09/20/16 18:59 Ondansetron HCl (Zofran Inj) 4 mg Q6H PRN IV 08/21/16 18:45 09/20/16 18:44 Albuterol Sulfate (Ventolin 0.083% 2.5MG/3ML Neb) 2.5 mg Q2R PRN INH 08/23/16 11:30 09/22/16 11:29 Folic Acid (Folvite Tab) 1 mg QAM PO 08/24/16 08:00 09/23/16 07:59 09/04/16 13:08 1 MG Calcium/Vitamin D (Caltrate Plus Tab) 1 tab BID PO 08/23/16 20:00 09/22/16 19:59 09/04/16 13:08 1 TAB Ipratropium [place] (Atrovent 0.02% 0.5MG/2.5ML Neb) 0.5 mg Q6R PRN INH 08/29/16 15:00 09/28/16 14:59 Famotidine (Pepcid Tab) 20 mg QAM PO 08/31/16 09:00 09/30/16 08:59 09/04/16 13:08 20 MG Prednisone (PredniSONE TAB) 20 mg DAILY PO 09/01/16 11:30 10/01/16 11:29 Future Hold 09/02/16 07:23 20 MG
[2016-09-04 16:13] VITALS: BP 109/74; PULSE 92; TEMP 36.6; O2SAT 95
[2016-09-05 07:04] LABS: HEMATOCRIT 26.7 % (37-47)
[2016-09-05 07:26] VITALS: BP 105/72; PULSE 80; TEMP 36.4; O2SAT 95
[2016-09-05] MEDS: FAMOTIDINE 20 MG TAB PO SCH (09:52)
[2016-09-05] MEDS: CALCIUM 600MG + VIT D 400 IU TAB PO SCH (09:52)
[2016-09-05] MEDS ORDERED: MRLP17X PO (11:29)
[2016-09-05] MEDS ORDERED: FLV1 PO (11:29)
[2016-09-05] MEDS ORDERED: FAMO20TA12 PO (11:29)
[2016-09-05] MEDS ORDERED: CALCTAB7 PO (11:29)
--- NOTE | 2016-09-05 11:30 | Discharge Instructions ---
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 Instructions / Follow-Up Instructions / Follow-Up Please follow up with Hematology Dr. Whitehead on September 08 at 2:45pm. Current Hospital Diet Patient's current hospital diet: Regular Diet Discharge Diet Recommended Diet: Regular Diet Pending Studies Studies pending at discharge: no Medical Emergencies . Who to Call and When: Medical Emergencies: If at any time you feel your situation is an emergency, please call 911 immediately. . Non-Emergent Contact Non-Emergency issues call your: Primary Care Provider, Oncologist . . "Provider Documentation" section prepared by Cathie Tijerina. VTE Core Measure Inpt VTE Proph given/why not?: Alejandro Spears, SCD's
[2016-09-05 13:19] VITALS: BP 105/72; PULSE 80; TEMP 36.4; O2SAT 95
--- NOTE | 2016-09-05 18:03 | Discharge Summary ---
Discharge Summary Admission Date: Aug 21, 2016 at 16:35 Discharge Date: Sep 05, 2016 Discharge Disposition: [facility] facility Principal Diagnosis: Autoimmune hemolytic anemia Procedures: CT head 1. Interval development of mild mucosal thickening of the sinuses. Unchanging left frontal meningioma. Atrophy and chronic small vessel change unaltered from the prior exam. CT chest 1. No evidence for pulmonary embolus. 2. Small bibasilar parenchymal infiltrates superimposed upon chronic interstitial change. LE venous doppler No DVT within the right or left lower extremity. Lumbar spine xray Old compression deformity L1. Moderate degenerative disc changes throughout the entire lumbar region Consultations: Hematology Pulmonary Neurology Medication Reconciliation New Medications: Calcium Carbonate-Vitamin D W/ (Caltrate 600 Plus) 1 Tab Tab 1 TAB PO BID for 30 Days, #60 TAB Famotidine (Famotidine) 20 Mg Tab 20 MG PO QAM for 30 Days, #30 TAB Folic Acid (Folic Acid) 1 Mg Tab 1 MG PO QAM for 30 Days, #30 TAB Polyethylene (Miralax) 17 Gm Pow 17 GM PO DAILY PRN for Constipation for 30 Days Discontinued Medications: Hydrochlorothiazide (Hctz) 12.5 Mg Cap 12.5 MG PO QAM, #90 Hydroxyzine Pamoate (Vistaril) 50 Mg Cap 50 MG PO Q6H PRN for Itching, CAP PRN ITCH Tramadol HCl (Tramadol HCl) 50 Mg Tab 50 MG PO BID PRN for Pain, #30 Admission Information HPI (per Admitting provider): Patient seen and examined. 85 year old female with PMhx of Hemolytic Anemia, HTN , and osteoporosis. Presents to the ED complaining of generalized pain. History is very unclear. Patient speaks Divehi only. Wardrobe Technician service was called multiple times and could not understand the patient. Family also speaks little Danish but per nursing staff family stated that patient is bed bound and always has some pain. Today she complained of increased generalized pain as well as cough and SOB. Additional history could not be obtained. In the ED patient is hypoxic on RA. It does not appear she wears oxygen at home. She was mildly anemia. She appeared slightly dehydration. TSH was low. CXR Did not show any acute processes. She received Tylenol and IVFs. She appears to be in NAD. Physical Exam (per Admitting): General Appearance: + pertinent finding (WD/WN 85 year old female lying in bed in NAD ) Head: normocephalic, atraumatic Eyes: PERRL, sclerae normal ENT: pharynx normal Neck: supple, no JVD, trachea midline Respiratory/Chest: chest non-tender, lungs clear, normal breath sounds, no respiratory distress, no accessory muscle use Cardiovascular: regular rate, rhythm, no edema, no gallop, no JVD, no murmur , normal peripheral pulses Abdomen/GI: normal bowel sounds, non tender, soft Extremities/Musculoskelatal: no calf tenderness, normal capillary refill, no pedal edema Neurologic/Psych: + pertinent finding (Sleeping but responses to verbal stimuli, unable to assess orientation d/t language barrier, unable to follow comands, appears to move all extremities appropriately ) Skin: normal color, warm/dry, no rash Lymphatic: no adenopathy Hospital Course Patient was admitted with metabolic encephalopathy, likely due to infection vs dehydration vs medications (patient was on tramadol and hydroxyzine as outpatient). CT head was negative for acute process. Neurology was consulted. Patient's mental status returned to baseline. Patient was admitted with possible pneumonia. CT chest on admission showed bibasilar parenchymal infiltrates. Patient initially required supplemental oxygen, but was weaned off. Patient was started on ceftriaxone and azithromycin ; this was changed to Zosyn and ultimately changed to Augmentin to complete a course. Blood cultures were negative. Pulmonary was consulted. Patient was noted to have an elevated d-dimer on admission, likely due to infection. CT chest was negative for PE and LE doppler was negative. Patient had been c/o back pain at home. Xray of lumbar spine showed old L1 compression deformity and moderate degenerative changes. PT/OT evaluated patient and recommended home vs SNF. Family did not feel that they could care for patient at home, and thus she was discharged to [facility]. Patient does have a h/o hemolytic anemia. Hematology was consulted. Patient did not tolerate a trial of prednisone x2 - she developed acute delirium that resolved with discontinuation of prednisone. Patient will follow up with Hematology as outpatient for possible Rituxan infusion. Hgb remained stable in the 7-8's. Patient was noted to have a low TSH and T3, but normal free t4. This was felt to be possibly sick euthyroid syndrome due to acute illness on presentation. Patient should have repeat TSH in 3-4 weeks. Patient deemed stable for discharge to SNF with Hematology follow up. PE on discharge: General- awake; alert; NAD Eyes- EOMI; no scleral icterus ENT- edentulous Neck- no stridor; trachea midline Lungs- CTA bilaterally anteriorly Heart- RRR; no m/r/g Abdomen- soft; NTND; nBS Back- no gross abnormalities Extremities- no c/c/e; no deformity Neuro- no gross focal deficits Skin- no appreciable rash or bruise . Total time spent on discharge = This includes examination of the patient, discharge planning, medication reconciliation, and communication with other providers. Discharge Instructions 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 Instructions / Follow-Up Instructions / Follow-Up Please follow up with Hematology Dr. Whitehead on September 08 at 2:45pm. Current Hospital Diet Patient's current hospital diet: Regular Diet Discharge Diet Recommended Diet: Regular Diet Pending Studies Studies pending at discharge: no Medical Emergencies . Who to Call and When: Medical Emergencies: If at any time you feel your situation is an emergency, please call 911 immediately. . Non-Emergent Contact Non-Emergency issues call your: Primary Care Provider, Oncologist . . "Provider Documentation" section prepared by Cathie Tijerina. VTE Core Measure Inpt VTE Proph given/why not?: Alejandro Spears, SCD's Additional Copies To Lorelei Whitehead MD
== END 2016-09-05 14:25 | DRG 808 ==
LOC: ENRESERVDT → ENRESERVTM → EDBD 12:14 → C.EDC 12:15 → C.MED 16:35 → C.MS4W 08-23 00:06 → C.MED 08-25 01:42 → C.MS2W 08-26 08:25 → C.MED 08-26 16:25
PROVIDERS: ADMIT Hospitalist; ATTEND Internal Medicine
DX: D59.1 Other autoimmune hemolytic anemias (principal); J18.9 Pneumonia, unspecified organism; G93.41 Metabolic encephalopathy; I10 Essential (primary) hypertension; Z79.899 Other long term (current) drug therapy; J32.9 Chronic sinusitis, unspecified; E86.0 Dehydration; M54.9 Dorsalgia, unspecified; W19.XXXA Unspecified fall, initial encounter; D58.9 Hereditary hemolytic anemia, unspecified; E87.6 Hypokalemia; E07.81 Sick-euthyroid syndrome; R09.02 Hypoxemia